=== PATIENT | male | born 1965 | race Caucasian/White ===

== ENCOUNTER 2016-12-09 10:01 | Emergency (ER) | payer OTHER ==
[~2016-12-09] VITALS: Ht 185.4 cm; Wt 102.1 kg
[~2016-12-09 10:01] MED LIST: AMLO10TA2 PO; AMLO5TAB2 PO; ASPI81TA2 PO; ISOS30TA PO; LISI1TAB3 PO; PANT40TA3 PO
[2016-12-09 10:19] VITALS: BP 138/90
[2016-12-09] MEDS ORDERED: IBUPROFEN 600 MG TABLET. PO ONE (10:30)
[2016-12-09] MEDS ORDERED: CYCLOBENZAPRINE 10 MG TABLET. PO ONE (10:45)
--- NOTE | 2016-12-09 11:12 | ED.ADGEN ---
Past Medical History Past Medical History: Hypertension, Kidney Stone, [place], Pancreatitis Past Surgical History: Other Additional Past Surgical Histo: Stents for kidney stones,lithotripsy x9, PTCA Additional Information: 10/20 ppd Alcohol Use: Rarely Drug Use: Marijuana Adult General Chief Complaint Chief Complaint: BACK PAIN OR INJURY HPI HPI Patient is a 51 year old man, history of hypertension, renal calculi, pancreatitis, who presents emergency Department with complaint of back pain after mechanical fall. Patient states that he slipped on slick laminated stairs today, falling and sliding down 4 stairs on his back. Did not strike his head or neck, did catch his hand on the banister, and his right foot. Was ambulating without difficulty upon arrival to the ED, complaining of pain in his upper and lower back. Denies any blood in his urine, any dizziness or lightheadedness, any chest pain or shortness breath, any nausea or vomiting, any headache or blurry vision, no weakness emesis or tingling. Has not taken any medication or pain prior to coming to the ED. Review of Systems Review of Systems Constitutional: Denies fever or chills. [] Eyes: Denies change in visual acuity. [] HENT: Denies nasal congestion or sore throat. [] Respiratory: Denies cough or shortness of breath. [] Cardiovascular: Denies chest pain or edema. [] GI: Denies abdominal pain, nausea, vomiting, bloody stools or diarrhea. [] : Denies dysuria. [] Musculoskeletal: Denies back pain or joint pain. [] Integument: Denies rash. [] Neurologic: Denies headache, focal weakness or sensory changes. [] Endocrine: Denies polyuria or polydipsia. [] Lymphatic: Denies swollen glands. [] Psychiatric: Denies depression or anxiety. [] Current Medications Current Medications Current Medications Medications (Trade) Dose Ordered Sig/Christa Start Time Stop Time Status Last Admin Dose Admin Cyclobenzaprine HCl (Flexeril) 10 mg 1X ONCE 12/09/16 10:45 12/09/16 10:46 DC 12/09/16 11:02 10 MG Ibuprofen (Motrin) 600 mg 1X ONCE 12/09/16 10:30 12/09/16 10:58 DC 12/09/16 11:02 600 MG Allergies Allergies Allergies Coded Allergies Type Severity Reaction Last Updated Verified codeine Allergy Intermediate hives 01/07/15 No ketorolac Allergy Intermediate swelling 12/09/16 No Physical Exam Physical Exam Constitutional: Well developed, well nourished, no acute distress, non-toxic appearance. [] HENT: Normocephalic, atraumatic, bilateral external ears normal, oropharynx moist, no oral exudates, nose normal. [] Eyes: PERRLA, EOMI, conjunctiva normal, no discharge. [] Neck: Normal range of motion, no tenderness, supple, no stridor. [] Cardiovascular:Heart rate regular rhythm, no murmur , S1, S2, rubs or gallops. [ ] Lungs & Thorax: Bilateral breath sounds clear to auscultation, no wheezing, rhonchi or rales. No chest tenderness or crepitus. [] Abdomen: Bowel sounds normal, soft, no tenderness, no masses, no pulsatile masses. [] Skin: Warm, dry, no erythema, no rash. [] Back: Patient with tenderness palpation in the mid thoracic region, paraspinal and midline, no step-offs or deformities appreciated. Patient to palpation in the lower lumbar region, no symptoms or deformities, pain in both paraspinal and midline region, noted have mild muscle spasm, no CVA tenderness. [] Extremities: Patient with a small abrasion noted on the medial aspect of the right fourth digit the lateral aspect of the nail, there is no hematoma, no bony point tenderness, full range of motion, patient with a small area abrasion on the fourth digit of the, no cyanosis, no clubbing right foot, no bony point tenderness or crepitus, patient with full range of motion, ROM intact, no edema. [] Neurologic: Alert and oriented X 3, normal motor function, normal sensory function, no focal deficits noted. [] Psychologic: Affect normal, judgement normal, mood normal. [] Current Patient Data Vital Signs Vital Signs Date Time Temp Pulse Resp B/P Pulse Ox O2 Delivery O2 Flow Rate FiO2 12/09/16 10:19 97.5 84 16 99 Room Air 97.5 Lab Values Laboratory Tests Test 12/09/16 11:30 Urine Collection Type Unknown Urine Color Yellow Urine Clarity Cloudy Urine pH 6.5 Urine Specific [place] 1.020 Urine Protein Negativemg/dL (NEG-TRACE) Urine Glucose (UA) Negativemg/dL (NEG) Urine Ketones (Stick) Negativemg/dL (NEG) Urine Blood Small (NEG) Urine Nitrite Negative (NEG) Urine Bilirubin Negative (NEG) Urine Urobilinogen Dipstick 0.2mg/dL (0.2 mg/dL) Urine Leukocyte Esterase Moderate (NEG) Urine RBC 11-20/HPF (0-2) Urine WBC 5-10/HPF (0-4) Urine Bacteria 0/HPF (0-FEW) EKG EKG Not indicated. [] Radiology/Procedures Radiology/Procedures [] [facility] [address] [place] [address] IMAGING REPORT Signed PATIENT: ERIC MCCOY ACCOUNT: [id number] : 1965 LOCATION: ER AGE: 51 SEX: M EXAM [id number] STATUS: REG ER ORD. PHYSICIAN: RICKY BERNAL DO REASON: fall/pain PROCEDURE: LUMBAR SPINE 2-3V; THORACIC SPINE 3V Lumbar spine, 3 views, 12/09/2016: History: Fall, back pain There is a minimal lumbar scoliosis. The lumbar vertebral heights are well-maintained. The intervertebral disc spaces are well preserved. There are mild scattered marginal spurs. There are mild sclerotic changes involving the facet joints in the lower lumbar spine. Multiple intrarenal calculi are again noted on the right. IMPRESSION: 1. Mild degenerative change. 2. No acute bony abnormality is detected. Thoracic spine, 3 views, 12/09/2016: No fracture or dislocation is identified. The paraspinous soft tissues are unremarkable. IMPRESSION: No acute thoracic spine abnormality is detected. DICTATED and SIGNED BY: DAVID SAWYER MD DATE: 12/09/16 1137 CC: RICKY BERNAL DO; AUGIE CHACKO MD ~ Course & Med Decision Making Course & Med Decision Making Pertinent Labs and Imaging studies reviewed. (See chart for details) Patient with tenderness palpation throughout the lumbar and thoracic back, no step-offs or deformities, x-rays obtained secondary to history does not reveal any evidence of soft tissue or bony abnormalities. Patient noted to have trace blood in his urine, no gross hematuria. Patient states this is a constant state for him, due to his multiple renal calculi, which were again noted on x-ray imaging. Patient states he has had 10 lithotripsies performed previously. I did discuss additional evaluation of this issue at this time, patient states that he has no concerns, and is feeling better after receiving ibuprofen and cyclobenzaprine in the ED, is ready for discharge home. He is ambulating in the ED without issue. Did discuss follow-up with his primary care provider for additional evaluation, and concerning symptoms that prompt return to the ED. Patient voiced understanding and agreement, discharged home in stable condition with ibuprofen and cyclobenzaprine, to follow-up with his PCP, and to return to the ED for concerning symptoms as discussed.. Dragon Disclaimer Dragon Disclaimer This electronic medical record was generated, in whole or in part, using a voice recognition dictation system. Departure Impression: Primary Impression: Back pain Additional Impression: Contusion Disposition: HOME, SELF-CARE Condition: IMPROVED Scripts Ibuprofen 600 Mg [id number] Mg PO PRN Q6HRS PRN INFLAMMATION #14 TAB Prov:RICKY BERNAL DO 12/09/16 Cyclobenzaprine Hcl 10 Mg [id number] Mg PO TID PRN MUSCLE PAIN #14 TAB Prov:RICKY BERNAL DO 12/09/16 Problem Qualifiers Primary Impression: Back pain Back pain location: low back pain Chronicity: acute Back pain laterality: bilateral Sciatica presence: without sciatica Qualified Code: M54.5 - Low back pain Additional Impression: Contusion Encounter type: initial encounter Contusion area: lower back Qualified Code : S30.0XXA - Contusion of lower back and pelvis, initial encounter RICKY BERNAL DO Dec 09, 2016 11:12
--- NOTE | 2016-12-09 11:43 | RAD ---
Lumbar spine, 3 views, 12/09/2016: History: Fall, back pain There is a minimal lumbar scoliosis. The lumbar vertebral heights are well-maintained. The intervertebral disc spaces are well preserved. There are mild scattered marginal spurs. There are mild sclerotic changes involving the facet joints in the lower lumbar spine. Multiple intrarenal calculi are again noted on the right. IMPRESSION: 1. Mild degenerative change. 2. No acute bony abnormality is detected. Thoracic spine, 3 views, 12/09/2016: No fracture or dislocation is identified. The paraspinous soft tissues are unremarkable. IMPRESSION: No acute thoracic spine abnormality is detected.
[2016-12-09 12:02] LABS: BACTERIA,URINE 0 /HPF (0-FEW); BILIRUBIN,URINE NEGATIVE (NEG); GLUCOSE,URINE NEGATIVE (NEG); NITRITE,URINE NEGATIVE (NEG); PH,URINE 6.5; PROTEIN,URINE NEGATIVE (NEG-TRACE); UROBILINOGEN,URINE 0.2 mg/dL (0.2 mg/dL)
[2016-12-09] MEDS ORDERED: IBUP-1007 PO (12:35)
[2016-12-09] MEDS ORDERED: CYCL10TA2 PO (12:35)
== END 2016-12-09 12:46 | disposition home or self-care (01) ==
LOC: ER 10:01
DX: S30.0XXA Contusion of lower back and pelvis, initial encounter (principal); S90.414A Abrasion, right lesser toe(s), initial encounter; I10 Essential (primary) hypertension; N20.0 Calculus of kidney; F17.200 Nicotine dependence, unspecified, uncomplicated; F12.10 Cannabis abuse, uncomplicated; Z87.442 Personal history of urinary calculi; I25.2 Old myocardial infarction; Z98.61 Coronary angioplasty status; Z88.5 Allergy status to narcotic agent; Z88.6 Allergy status to analgesic agent; W10.8XXA Fall (on) (from) other stairs and steps, initial encounter; Y93.89 Activity, other specified; Y99.8 Other external cause status; Y92.89 Other specified places as the place of occurrence of the external cause
CPT/HCPCS: 72072; 72100; 81001; 87086; 99285-25

== ENCOUNTER 2017-03-02 20:21 | Emergency (ER) | payer SELFPAY ==
[~2017-03-02] VITALS: Ht 182.9 cm; Wt 102.1 kg
[~2017-03-02 20:21] MED LIST changes: +CYCL10TA2 PO; +IBUP-1007 PO
[2017-03-02] MEDS ORDERED: NITROGLYCERIN SUBLINGUAL 0.4 MG BOTTLE OF 25. SL PRN (20:30)
[2017-03-02 20:55] LABS: BASO # 0.1 x10^3/uL (0.0-0.2); BASO % 1 % (0-3); EOS % 2 % (0-3); HEMATOCRIT 48.5 % (39.0-53.0); HEMOGLOBIN 16.6 g/dL (13.0-17.5); LYMPH # 1.5 x10^3/uL (1.0-4.8); LYMPH % 14 % (24-48); MEAN CORPUSCULAR HEMOGLOBIN 29 pg (25-35); MEAN CORPUSCULAR HGB CONC 34 g/dL (31-37); MEAN CORPUSCULAR VOLUME 85 fL (79-100); MONO % 6 % (0-9); NEUT % 77 % (31-73); PLATELET COUNT 179 x10^3/uL (140-400); RED CELL DISTRIBUTION WIDTH 14.6 % (11.5-14.5); WHITE BLOOD COUNT 10.9 x10^3/uL (4.0-11.0)
[2017-03-02 21:09] LABS: CALCIUM 9.1 mg/dL (8.5-10.1); CREATININE 1.4 mg/dL (0.7-1.3); GFR 53.2; POTASSIUM 3.7 mmol/L (3.5-5.1)
[2017-03-02 21:16] LABS: ALBUMIN 3.3 g/dL (3.4-5.0); ALBUMIN/GLOBULIN RATIO 0.9 (1.0-1.7); TOTAL BILIRUBIN 0.5 mg/dL (0.2-1.0)
[2017-03-02] MEDS ORDERED: fentaNYL PF VIAL 100 MCG/2 ML VIAL IV ONE (21:30)
[2017-03-02] MEDS ORDERED: ONDANSETRON PF 4 MG/2 ML VIAL. IV ONE (21:30)
[2017-03-02 21:31] LABS: CKMB MASS 1.7 ng/mL (0.0-3.6)
--- NOTE | 2017-03-02 22:06 | ED.ADGEN ---
Past Medical History Past Medical History: Hypertension, Kidney Stone, [place], Pancreatitis Additional Past Medical Histor: "mi 2015" Past Surgical History: Other Additional Past Surgical Histo: Stents for kidney stones, lithotripsy x9, PTCA Alcohol Use: Occasionally Drug Use: Marijuana Adult General Chief Complaint Chief Complaint: CHEST PAIN HPI HPI Patient is a 51 year old with history of dyslipidemia and hypertension, Prinzmetal angina presents with exertional chest pain while mowing lawn earlier this afternoon. Patient rates pain [id number] is located over the left pectoral region. It is nonradiating. It is worse with deep breathing and palpation. Patient is not taking aspirin or nitroglycerin prior to ED arrival. Denies nausea sweats vomiting, palpitations. No leg pain or swelling. No history of DVT or PE. No other acute symptoms or complaints. Review of Systems Review of Systems ROS as per HPI. Current Medications Current Medications Current Medications Medications (Trade) Dose Ordered Sig/Christa Start Time Stop Time Status Last Admin Dose Admin Fentanyl Citrate (Fentanyl 2ml Vial) 50 mcg 1X ONCE 03/02/17 21:30 03/02/17 21:31 DC 03/02/17 21:25 50 MCG Nitroglycerin (Nitrostat) 0.4 mg PRN Q5MIN PRN 03/02/17 20:30 03/03/17 01:21 DC 03/02/17 20:45 0.4 MG Ondansetron HCl (Zofran) 4 mg 1X ONCE 03/02/17 21:30 03/02/17 21:31 DC 03/02/17 21:25 4 MG Oxycodone/ Acetaminophen (Percocet 5/325) 1 tab 1X ONCE 03/02/17 23:00 03/02/17 23:01 DC 03/02/17 23:08 1 TAB Allergies Allergies Allergies Coded Allergies Type Severity Reaction Last Updated Verified codeine Allergy Intermediate hives 01/07/15 No ketorolac Allergy Intermediate swelling 12/09/16 No Physical Exam Physical Exam Constitutional: Well developed, well nourished, no acute distress, non-toxic appearance. HENT: Normocephalic, atraumatic, bilateral external ears normal, oropharynx moist, no oral exudates, nose normal. Eyes: PERRLA, EOMI, conjunctiva normal, no discharge. Neck: Normal range of motion, no tenderness, supple, no stridor. Cardiovascular:Heart rate regular rhythm, no murmur. Lungs & Thorax: Bilateral breath sounds clear to auscultation. Abdomen: Bowel sounds normal, soft, no tenderness. Skin: Warm, dry, no erythema, no rash. Back: No tenderness, no CVA tenderness. Extremities: No tenderness. Neurologic: Alert and oriented X 3, normal motor function, normal sensory function, no focal deficits noted. Psychologic: Affect normal, judgement normal, mood normal. Current Patient Data Vital Signs Vital Signs Date Time Temp Pulse Resp B/P (MAP) Pulse Ox O2 Delivery O2 Flow Rate FiO2 03/02/17 23:08 20 03/02/17 23:00 84 141/73 (95) 97 03/02/17 22:30 Room Air 03/02/17 20:25 98.1 98.1 Lab Values Laboratory Tests Test 03/02/17 20:45 03/02/17 20:52 White Blood Count 10.9 x10^3/uL (4.0-11.0) Red Blood Count 5.70 x10^6/uL (4.30-5.70) Hemoglobin 16.6 g/dL (13.0-17.5) Hematocrit 48.5 % (39.0-53.0) Mean Corpuscular Volume 85 fL (79-100) Mean Corpuscular Hemoglobin 29 pg (25-35) Mean Corpuscular Hemoglobin Concent 34 g/dL (31-37) Red Cell Distribution Width 14.6 % (11.5-14.5) H Platelet Count 179 x10^3/uL (140-400) Neutrophils (%) (Auto) 77 % (31-73) H Lymphocytes (%) (Auto) 14 % (24-48) L Monocytes (%) (Auto) 6 % (0-9) Eosinophils (%) (Auto) 2 % (0-3) Basophils (%) (Auto) 1 % (0-3) Neutrophils # (Auto) 8.4 x10^3uL (1.8-7.7) H Lymphocytes # (Auto) 1.5 x10^3/uL (1.0-4.8) Monocytes # (Auto) 0.7 x10^3/uL (0.0-1.1) Eosinophils # (Auto) 0.2 x10^3/uL (0.0-0.7) Basophils # (Auto) 0.1 x10^3/uL (0.0-0.2) Sodium Level 136 mmol/L (136-145) Potassium Level 3.7 mmol/L (3.5-5.1) Chloride Level 103 mmol/L (98-107) Carbon Dioxide Level 22 mmol/L (21-32) Anion Gap 11 (6-14) Blood Urea Nitrogen 19 mg/dL (8-26) Creatinine 1.4 mg/dL (0.7-1.3) H Estimated GFR (Cockcroft-Gault) 53.2 BUN/Creatinine Ratio 14 (6-20) Glucose Level 113 mg/dL (70-99) H Calcium Level 9.1 mg/dL (8.5-10.1) Total Bilirubin 0.5 mg/dL (0.2-1.0) Aspartate Amino Transferase (AST) 20 U/L (15-37) Alanine Aminotransferase (ALT) 31 U/L (16-63) Alkaline Phosphatase 100 U/L (46-116) Creatine Kinase 123 U/L (39-308) Creatine Kinase MB (Mass) 1.7 ng/mL (0.0-3.6) Creatine Kinase MB Relative Index 1.4 % (0-4) Total Protein 7.0 g/dL (6.4-8.2) Albumin 3.3 g/dL (3.4-5.0) L Albumin/Globulin Ratio 0.9 (1.0-1.7) L Lipase 124 U/L (73-393) POC Troponin I 0.00 ng/ml (<0.08) Laboratory Tests 03/02/17 20:45 Laboratory Tests 03/02/17 20:45 EKG EKG [EKG: NSR, rate 94, QTC 395.] Radiology/Procedures Radiology/Procedures [CXR: NAD] Course & Med Decision Making Course & Med Decision Making Pertinent Labs and Imaging studies reviewed. (See chart for details) [Atypical chest pain reproduces with palpation. Relief with nitroglycerin. Patient pain-free with fentanyl. EKG is nonacute. Troponin is 0.00 despite 2 hours of continuous chest pain.] Dragon Disclaimer Dragon Disclaimer This electronic medical record was generated, in whole or in part, using a voice recognition dictation system. CAITY MIN DO March 02, 2017 22:06
[2017-03-02 23:00] VITALS: BP 141/73
[2017-03-02] MEDS ORDERED: oxyCODONE/APAP 5/325 1 TAB TABLET PO ONE (23:00)
--- NOTE | 2017-03-03 08:10 | RAD ---
Portable chest, 03/02/2017: History: Chest pain Comparison is made to a study from 05/26/2016. The heart size and pulmonary vascularity are normal. The lungs are clear. There is no evidence of pleural fluid. IMPRESSION: No acute cardiopulmonary abnormality is detected.
--- NOTE | 2017-03-03 14:26 | EKG ---
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
== END 2017-03-02 23:31 | disposition home or self-care (01) ==
LOC: ER 20:21
DX: R07.89 Other chest pain (principal); R00.2 Palpitations; I10 Essential (primary) hypertension; I25.2 Old myocardial infarction; Z87.442 Personal history of urinary calculi; Z95.5 Presence of coronary angioplasty implant and graft; F12.10 Cannabis abuse, uncomplicated; Z88.5 Allergy status to narcotic agent; Z88.6 Allergy status to analgesic agent
CPT/HCPCS: 36415; 71010; 80053; 82550; 82553; 83690; 84484; 85027; 93005; 96374; 96375; 99285; J2405; J3010

== ENCOUNTER 2020-11-09 18:17 | Emergency (ER) | payer MEDICARE, MEDICAID ==
[~2020-11-09] VITALS: Ht 182.9 cm; Wt 122.7 kg
[~2020-11-09 18:17] MED LIST changes: +AMLO-186 PO; +AMLO-187 PO; -AMLO10TA2 PO; -AMLO5TAB2 PO; +ASPI-630 PO; -ASPI81TA2 PO; +LISI1TAB23 PO; -LISI1TAB3 PO; -PANT40TA3 PO; +PANT40TA77 PO
--- NOTE | 2020-11-09 19:25 | PHYS DOC ---
Past Medical History Past Medical History: Hypertension, Kidney Stone, [place], Pancreatitis Additional Past Medical Histor: "mi 2015" Past Surgical History: Other Additional Past Surgical Histo: Stents for kidney stones, lithotripsy x9, PTCA Smoking Status: Current Every Day Smoker Alcohol Use: Occasionally Drug Use: Marijuana Adult General Chief Complaint Chief Complaint: DIZZY/LIGHT HEADED HPI HPI Patient is a 55 year old male with a past medical history of hypertension and coronary artery disease presents emergency department with headache after head injury. Patient states that yesterday he was getting out of his car when he accidentally pulled were too hard and struck himself in the left forehead. States that since that time he has been feeling some left anterior headache and dizziness and nausea. Denies any chest pain, fever, syncope, vertigo, cough. Does state that he had a single episode of nausea bloody nonbilious vomiting. Denies any diarrhea. Denies any neck or back pain Review of Systems Review of Systems Constitutional: Denies fever or chills [] Eyes: Denies change in visual acuity, redness, or eye pain [] HENT: Denies nasal congestion or sore throat [] Respiratory: Denies cough or shortness of breath [] Cardiovascular: No additional information not addressed in HPI [] GI: Denies abdominal pain, nausea, vomiting, bloody stools or diarrhea [] : Denies dysuria or hematuria [] Musculoskeletal: Denies back pain or joint pain [] Integument: Denies rash or skin lesions [] Neurologic: Denies headache, focal weakness or sensory changes [] Endocrine: Denies polyuria or polydipsia [] All other systems were reviewed and found to be within normal limits, except as documented in this note. Current Medications Current Medications Current Medications Medications (Trade) Dose Ordered Sig/Christa Start Time Stop Time Status Last Admin Dose Admin Acetaminophen (Tylenol) 1,000 mg 1X ONCE 11/09/20 19:30 11/09/20 19:31 DC 11/09/20 19:31 1,000 MG Ibuprofen (Motrin) 800 mg 1X ONCE 11/09/20 19:30 11/09/20 19:31 DC 11/09/20 19:32 800 MG Allergies Allergies Allergies Coded Allergies Type Severity Reaction Last Updated Verified codeine Allergy Intermediate hives 01/07/15 No ketorolac Allergy Intermediate swelling 12/09/16 No Physical Exam Physical Exam Constitutional: Well developed, well nourished, no acute distress, non-toxic appearance. [] HENT: Normocephalic, atraumatic, bilateral external ears normal, oropharynx moist, no oral exudates, nose normal. [] Eyes: PERRLA, EOMI, conjunctiva normal, no discharge. [] Neck: Normal range of motion, no tenderness, supple, no stridor. [] Cardiovascular:Heart rate regular rhythm, no murmur [] Lungs & Thorax: Bilateral breath sounds clear to auscultation [] Abdomen: Bowel sounds normal, soft, no tenderness, no masses, no pulsatile masses. [] Skin: Warm, dry, no erythema, no rash. [] Back: No tenderness, no CVA tenderness. [] Extremities: No tenderness, no cyanosis, no clubbing, ROM intact, no edema. [] Neurologic: Alert and oriented X 3, normal motor function, normal sensory function, no focal deficits noted. [] Psychologic: Affect normal, judgement normal, mood normal. [] Current Patient Data Vital Signs Vital Signs Date Time Temp Pulse Resp B/P (MAP) Pulse Ox O2 Delivery O2 Flow Rate FiO2 11/09/20 19:16 98.7 76 17 144/79 (100) 96 Room Air 98.7 EKG EKG [] Radiology/Procedures Radiology/Procedures [] Course & Med Decision Making Course & Med Decision Making Pertinent Labs and Imaging studies reviewed. (See chart for details) 55-year-old male presented emergency department with mild headache and nausea after traumatic head injury. Based on the patient's findings there is some consideration for intracranial hemorrhage however I think this is less likely. Patient likely suffered a significant brain concussion and will need rest and physical therapy. We will obtain a CT head at this time and treat symptomatically and plan to reevaluate. 20:54 -CT scan without any significant intracranial abnormality or trauma injury. Thus I will discharge home with routine care for presumed concussion. Dragon Disclaimer Dragon Disclaimer This electronic medical record was generated, in whole or in part, using a voice recognition dictation system. Departure Departure Impression: Primary Impression: Concussion Disposition: 01 DC HOME SELF CARE/HOMELESS Condition: GOOD Referrals: AUGIE CHACKO MD (PCP) Patient Instructions: Concussion and Brain Injury Additional Instructions: EMERGENCY DEPARTMENT GENERAL DISCHARGE INSTRUCTIONS Thank you for coming to [facility] Emergency Department (ED) today and trusting us with you care. We trust that you had a positive experience in our Emergency Department. If you wish to speak to the department management, you may call the Director at [phone]. YOUR FOLLOW UP INSTRUCTIONS ARE FOLLOWS: 1. Do you have a private Doctor? If you do not have a private doctor, please ask for a resource list of physicians or clinics that may be able to assist you with follow up care. 2. The Emergency Physicain has interpreted your x-rays. The X-Ray specialist will also review them. If there is a change in the findings, you will be notified in 48 hours when at all possible. 3. A lab test or culture has been done, your results will be reviewed and you will be notified if you need a change in treatment. ADDITIONAL INSTRUCTIONS AND INFORMATION: 1. Your care today has been supervised by a physician who is specially trained in emergency care. Many problems require more than one evaluation for a complete diagnosis and treatment. We recommend that you schedule your follow up appointment as recommended to ensure complete treatment of you illness or injury. If you are unable to obtain follow up care and continue to have a problem, or if your condition worsens, we recommend that you return to the ED. 2. We are not able to safely determine your condition over the phone nor are we able to give sound medical advice over the phone. For these safety reasons, if you call for medical advice we will ask you to come to the ED for further evaluation. 3. If you have any questions regarding these discharge instructions please call the ED at [phone]. SAFETY INFORMATION: In the interest of safety, wellness, and injury prevention; we encourage you to wear your sealbelt, if you smoke; quite smoking, and we encourage family to use a protective helmet for bicycling and other sporting events that present an increased risk for head injury. IF YOUR SYMPTOMS WORSEN OR NEW SYMPTOMS DEVELOP, OR YOU HAVE CONCERNS ABOUT YOUR CONDITION; OR IF YOUR CONDITION WORSENS WHILE YOU ARE WAITING FOR YOUR FOLLOW UP APPOINTMENT; EITHER CONTACT YOUR PRIMARY CARE DOCTOR, THE PHYSICIAN WHOSE NAME AND NUMBER YOU WERE GIVEN, OR RETURN TO THE ED IMMEDIATELY. KESHAV GIL MD Nov 09, 2020 19:25
[2020-11-09] MEDS ORDERED: IBUPROFEN 400 MG TABLET. PO ONE (19:30)
[2020-11-09] MEDS ORDERED: ACETAMINOPHEN 500 MG TABLET PO ONE (19:30)
--- NOTE | 2020-11-09 20:27 | RAD ---
Exam: CT head INDICATION: Head injury TECHNIQUE: Sequential axial images through the head were obtained without the administration of IV co ntrast. Comparisons: None FINDINGS: No focal parenchymal lesion or hemorrhage is identified. There is no midline shift or sulcal effaceme nt. Patchy hypodensity in the periventricular white matter. No acute vascular territory infarction is francisco ntified. Ervin-white distinction is preserved. The ventricular system is within normal limits without compression hydrocephalus. The basal cisterns are well maintained. The visualized portions of the paranasal sinuses and mastoid air cells are well-pneumatized. No acute fractures. IMPRESSION: Mild small vessel ischemic change, technically age indeterminate without recent prior imaging. No acu te traumatic injury identified. Exposure: One or more of the following in the visualized dose reduction techniques were utilized for this examination: 1. Automated exposure control 2. Adjustment of the MA and/or KV according to patient size Use of iterative of reconstructive technique Electronically signed by: Kelly Kennedy MD (11/09/2020 8:25 PM) [facility]
[2020-11-09 22:09] VITALS: BP 143/73
[2021-01-10] MEDS ORDERED: ISOS30TA19 PO (10:41)
== END 2020-11-09 22:13 | disposition home or self-care (01) ==
LOC: ER 18:17
DX: S06.0X0A Concussion without loss of consciousness, initial encounter (principal); R42 Dizziness and giddiness; R11.0 Nausea; I10 Essential (primary) hypertension; F17.200 Nicotine dependence, unspecified, uncomplicated; I25.2 Old myocardial infarction; I25.10 Atherosclerotic heart disease of native coronary artery without angina pectoris; Z87.442 Personal history of urinary calculi; Z95.5 Presence of coronary angioplasty implant and graft; Z88.5 Allergy status to narcotic agent; Z88.6 Allergy status to analgesic agent; W22.8XXA Striking against or struck by other objects, initial encounter; Y93.89 Activity, other specified; Y92.89 Other specified places as the place of occurrence of the external cause; Y99.8 Other external cause status
CPT/HCPCS: 70450; 99285-25

== ENCOUNTER 2021-01-02 20:59 | Inpatient (IN) | payer MEDICARE, MEDICAID ==
[~2021-01-02] VITALS: Ht 182.9 cm; Wt 125.5 kg
--- NOTE | 2021-01-02 21:18 | PHYS DOC ---
Past Medical History Past Medical History: Diabetes-Type II, Hypertension, Kidney Stone, NV, P ancreatitis Additional Past Medical Histor: "mi 2015" Past Surgical History: Other Additional Past Surgical Histo: Stents for kidney stones, lithotripsy x9, PTCA Smoking Status: Current Every Day Smoker Alcohol Use: Occasionally Drug Use: Marijuana General Adult EDM: Chief Complaint: CHEST PAIN HPI: HPI: Patient is a 55 year old male with past medical history of diabetes type 2, hypertension, pancreatitis, and myocardial infarction presents for chest pain and shortness of breath. Patient reports that he started having trouble breathing at 11 AM this morning. He later developed left-sided chest pain the radiates to the arm. Patient reports that the pain comes and go and at its worst is 9 out of 10 in severity. He had a similar type of pain last time he had vasospasms. Patient's pain can be relieved by nitroglycerin at home. Patient reports that he has shortness of breath and chest pain at rest, and exertion were exacerbates the pain. Patient denies any fever and chills, cough, swelling in the lower extremity, abdominal pain, change in bowel movement or urination. Patient is the main historian. Review of Systems: Review of Systems: Review of systems: Constitutional symptoms- No fever, no chills. Eyes- No Discharge, No Visual Loss Respiratory symptoms-reports shortness of breath at rest, worse with exertion Cardiovascular Systems; reports sharp left-sided chest pain radiating to the left arm Gastrointestinal symptoms: NO abdominal pain, no nausea, no vomiting or diarrhea. Genitourinary symptoms: No dysuria. Musculoskeletal symptoms: No back pain No extremity pain. NEUROLOGICAL Symptoms: No headache, no generalized weakness; No focal Weakness Heart Score: C/O Chest Pain: Yes HEART Score for Chest Pain: HEART Score for Chest Pain Response (Comments) Value History Highly Suspicious 2 ECG Nonspecific Repolarizatio 1 Age >45 - < 65 1 Risk Factors >3 Risk Factors or Hx CAD 2 Troponin < Normal Limit 0 Total 6 Risk Factors: Risk Factors: DM, Current or recent (<one month) smoker, HTN, HLP, family history of CAD, obesity. Risk Scores: Score 0 - 3: 2.5% MACE over next 6 weeks - Discharge Home Score 4 - 6: 20.3% MACE over next 6 weeks - Admit for Clinical Observation Score 7 - 10: 72.7% MACE over next 6 weeks - Early Invasive Strategies Allergies: Allergies: Allergies Coded Allergies Type Severity Reaction Last Updated Verified codeine Allergy Intermediate hives 01/07/15 No ketorolac Allergy Intermediate swelling 12/09/16 No Physical Exam: PE: General: Patient in moderate distress. Skin: warm, dry and intact. Head:: Normocephalic, atraumatic. Neck: Trachea midline. Eyes: EOMI, Normal conjunctiva, No drainage CARDIOVASCULAR: Regular rate and rhythm RESPIRATORY: No respiratory distress Back: Full range of motion. MUSCULOSKELETAL: Full range of motion of bilateral upper and lower extremities. GASTROINTESTINAL: Abdomen soft without rebound or guarding. NEUROLOGICAL: Alert and noted to person, place and time. No neurological deficits observed Psychiatric: Cooperative. Normal judgment EKG: EKG: EKG performed at 2104 sinus rhythm rate of [address] elevation no ST depression no acute NV [] Radiology/Procedures: Radiology/Procedures: [] Impression: FINDINGS: The heart is not enlarged. Mediastinal and hilar contours are normal. Patchy opacities medial right lung base likely atelectasis or developing consolidation, new compared to 03/02/2017. No pleural effusion or pneumothorax. IMPRESSION:Patchy opacities medial right lung base likely atelectasis or developing consolidation, new compared to 03/02/2017. Electronically signed by: Christiano Nielsen MD (01/02/2021 10:56 PM) [facility] Course & Med Decision Making: Course & Med Decision Making Pertinent Labs and Imaging studies reviewed. (See chart for details) [] Patient was evaluated for chief complaint. Work-up consisted of laboratory analysis and radiologic imaging. Results reviewed and discussed with patient. Patient EKG without acute ischemic changes. Troponin negative. Treatment included aspirin morphine nitroglycerin. Patient's pain improved post treatment. Chest x-ray radiologist impression atelectasis versus infiltrate. Patient was started on Rocephin and Zithromax. Patient admitted to the hospita list with cardiology consult. Dragon Disclaimer: Dragon Disclaimer: This electronic medical record was generated, in whole or in part, using a voice recognition dictation system. Departure Departure Impression: Primary Impression: Chest pain Disposition: ADMITTED INPT THIS HOSP Admitting Physician: HIMMane Condition: STABLE Referrals: AUGIE CHACKO MD (PCP) YESSENIA CONNOR DO Jan 02, 2021 21:18
[2021-01-02 21:37] LABS: BASO # 0.1 x10^3/uL (0.0-0.2); BASO % 1 % (0-3); EOS # 0.2 x10^3/uL (0.0-0.7); EOS % 2 % (0-3); HEMATOCRIT 47.8 % (39.0-53.0); LYMPH # 2.3 x10^3/uL (1.0-4.8); LYMPH % 29 % (24-48); MEAN CORPUSCULAR HEMOGLOBIN 31 pg (25-35); MEAN CORPUSCULAR HGB CONC 34 g/dL (31-37); MEAN CORPUSCULAR VOLUME 92 fL (79-100); MONO # 0.7 x10^3/uL (0.0-1.1); MONO % 9 % (0-9); NEUT # 4.8 x10^3/uL (1.8-7.7); NEUT % 60 % (31-73); PLATELET COUNT 112 x10^3/uL (140-400); RED BLOOD COUNT 5.22 x10^6/uL (4.30-5.70); RED CELL DISTRIBUTION WIDTH 15.1 % (11.5-14.5)
[2021-01-02] MEDS ORDERED: NITROGLYCERIN OINT 1 GM PACKET. TP ONE (21:45)
[2021-01-02] MEDS ORDERED: MORPHINE SULFATE 4 MG/ML VIAL. IV ONE ×2 (21:45→22:45)
[2021-01-02] MEDS ORDERED: ASPIRIN CHEWABLE 81 MG TABLET. PO ONE (21:45)
[2021-01-02 21:51] LABS: CALCIUM 8.9 mg/dL (8.5-10.1); CREATININE 1.2 mg/dL (0.7-1.3); GFR 62.6; POTASSIUM 4.1 mmol/L (3.5-5.1)
[2021-01-02 21:56] LABS: ALBUMIN 3.3 g/dL (3.4-5.0); TOTAL BILIRUBIN 0.6 mg/dL (0.2-1.0); TOTAL PROTEIN 6.6 g/dL (6.4-8.2)
--- NOTE | 2021-01-02 22:16 | EKG ---
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
--- NOTE | 2021-01-02 22:59 | RAD ---
EXAM: AP View of the chest DATE: 01/02/2021 9:54 PM INDICATION: Reason: CHEST PAIN / Spl. Instructions: / History: COMPARISON: 03/02/2017 FINDINGS: The heart is not enlarged. Mediastinal and hilar contours are normal. Patchy opacities medial right lung base likely atelectasis or developing consolidation, new compared to 03/02/2017. No pleural effusion or pneumothorax. IMPRESSION:Patchy opacities medial right lung base likely atelectasis or developing consolidation, ne w compared to 03/02/2017. Electronically signed by: Christiano Nielsen MD (01/02/2021 10:56 PM) [facility]
[2021-01-02] MEDS ORDERED: cefTRIAXone IV Push 1 GM VIAL. IVP ONE (23:30)
[2021-01-02] MEDS ORDERED: ONDANSETRON PF 4 MG/2 ML VIAL. IV PRN (23:30)
[2021-01-02] MEDS ORDERED: AZITHRMYCN 500MG IVPB FOR OMNI 250 ML IV ONE (23:45)
[2021-01-03 02:08] VITALS: BP 140/88
[2021-01-03] MEDS: NICOTINE 14MG PATCH. TD SCH ×2 (02:16→09:00)
[2021-01-03] MEDS: MORPHINE SULFATE 2 MG/ML VIAL. IV PRN ×4 (02:18→20:13)
[2021-01-03] MEDS ORDERED: NITROGLYCERIN SUBLINGUAL 0.4 MG BOTTLE OF 25. SL PRN (02:45)
[2021-01-03 07:00] VITALS: BP 131/69
[2021-01-03] MEDS ORDERED: INSU100I53 SQ (08:42)
[2021-01-03] MEDS ORDERED: DIAZ2TAB3 PO (08:42)
[2021-01-03] MEDS ORDERED: PREG75CA67 PO (08:42)
[2021-01-03] MEDS ORDERED: INSU100I27 SQ (08:42)
[2021-01-03] MEDS ORDERED: CHOL4POW PO (08:42)
[2021-01-03] MEDS ORDERED: MIRT7.5T8 PO (08:42)
[2021-01-03] MEDS ORDERED: PANT40TA6 PO (08:42)
[2021-01-03] MEDS ORDERED: METO10TA PO (08:42)
[2021-01-03] MEDS ORDERED: DESV100T16 PO (08:42)
[2021-01-03] MEDS ORDERED: ROPI2TAB PO (08:43)
[2021-01-03] MEDS ORDERED: LEVO125T5 PO (08:44)
[2021-01-03] MEDS ORDERED: ACET325T9 PO (08:45)
[2021-01-03] MEDS ORDERED: CHOL4POW2 PO (08:51)
[2021-01-03 11:02] VITALS: BP 128/77
[2021-01-03] MEDS ORDERED: METOCLOPRAMIDE 10 MG TABLET. PO PRN (11:45)
--- NOTE | 2021-01-03 11:58 | HP ---
ADMIT DATE: 01/03/2021 CHIEF COMPLAINT: Chest pain. HISTORY OF PRESENT ILLNESS: The patient is a pleasant 55-year-old male who has chronic chest pain. In fact, he has been seen by a yeast supervisor, as I understood, he was scheduled to have a cardiac catheterization next week. He actually has been wearing an event monitor as well. His pain now has worsened to the point he decided to come on in to the ER last night. He rates his symptoms at 7/10, worse with moving, better with sitting still. He increased his home meds, but that is not working. It is described as mostly on the left side radiating to the arm. It is relieved with nitroglycerin. I discussed the case with ER physician. We admitted the patient with consultation to Cardiology. PAST MEDICAL HISTORY: Diabetes, hypertension, kidney stones, myocardial infarction (2016 according to the patient), pancreatitis, kidney stents, lithotripsy x 9, angioplasty, tobacco abuse. ALLERGIES: CODEINE, ____. FAMILY HISTORY: Diabetes and coronary artery disease. SOCIAL HISTORY: He smokes. No drink or drugs. MEDICATIONS: Reviewed, please refer to the MRAD. REVIEW OF SYSTEMS: GENERAL: No history of weight change, weakness or fevers. SKIN: No bruising, hair changes or rashes. EYES: No blurred, double or loss of vision. NOSE AND THROAT: No history of nosebleeds, hoarseness or sore throat. HEART: No history of palpitations, chest pain or shortness of breath on exertion. LUNGS: Denies cough, hemoptysis, wheezing or shortness of breath. GASTROINTESTINAL: Denies changes in appetite, nausea, vomiting, diarrhea or constipation. GENITOURINARY: No history of frequency, urgency, hesitancy or nocturia. NEUROLOGIC: Denies history of numbness, tingling, tremor or weakness. PSYCHIATRIC: No history of panic, anxiety or depression. ENDOCRINE: No history of heat or cold intolerance, polyuria or polydipsia. EXTREMITIES: Denies muscle weakness, joint pain, pain on walking or stiffness. PHYSICAL EXAMINATION: VITALS: Within normal limits and are stable. GENERAL: No apparent distress. Alert and oriented. HEENT: Normal cephalic atraumatic, external auditory canals are patent. EYES: Extraocular muscles are intact, pupils are equally round and reactive to light and accommodation. MUSCULOSKELETAL: Well developed, well nourished, good range of motion. ENDOCRINE: No thyromegaly was palpated. LYMPHATICS: No cervical chain or axillary nodes were noted. HEMATOPOIETIC: No bruising. NECK: Supple, no JVD, no thyromegaly was noted. LUNGS: Clear to auscultation in all lung howard without rhonchi or wheezing. HEART: RRR, S1, S2 present. Peripheral pulses intact, no obvious murmurs were noted. ABDOMEN: Soft, nontender. Positive bowel sounds no organomegaly, normal bowel sounds. EXTREMITIES: Without any cyanosis, clubbing, or edema. Pedal pulses intact, Homans sign is negative. NEUROLOGIC: Normal speech, normal tone. A & O x3, moves all extremities, no obvious focal deficits. PSYCHIATRIC: Normal affect, normal mood. Stable. SKIN: No ulcerations or rashes, good skin turgor, no jaundice. VASCULAR: Good capillary refill, neurovascular bundle appears to be intact. LABORATORY DATA: Troponin is 0. Hematology is normal. ASSESSMENT AND PLAN: Chest pain, rule out coronary artery disease. The patient has been admitted. We are checking serial enzymes, serial EKGs, echocardiogram, consult Cardiology, cardiac monitoring, home meds, deep venous thrombosis prophylaxis. Full code. PROGNOSIS: Guarded. BRONWYN PECK DO DR: NINA/alejandra JOB#: [id number] / [id number]
--- NOTE | 2021-01-03 11:58 | NUR ---
SS following for discharge planning. SS reviewed pt chart and discussed with pt RN. Pt is from home and is currently requiring oxygen at two liters nasal canula. COVID19 negative. Pt on IV Rocephin. Cardiology consulted. SS will continue to follow for discharge planning.
[2021-01-03] MEDS ORDERED: ACETAMINOPHEN 500 MG TABLET PO PRN (12:00)
[2021-01-03] MEDS ORDERED: ACETAMINOPHEN 325 MG TABLET. PO PRN (12:00)
[2021-01-03] MEDS ORDERED: HEPARIN 25,000UTS/250ML PREMIX 250 ML IV PRN (14:15)
[2021-01-03] MEDS: PANTOPRAZOLE 40 MG TABLET.DR. PO SCH (14:38)
[2021-01-03] MEDS: INSULIN LISPRO 300 UNITS/3 ML VIAL. SQ SCH ×4 (14:59→21:00)
[2021-01-03 15:00] VITALS: BP 143/71
--- NOTE | 2021-01-03 15:21 | PDOC2 ---
CONSULT Date of Consult Date of Consult DATE: 01/03/21 TIME: 15:15 Reason for Consult Reason for Consult: Shortness of breath and chest pain Referring Physician Referring Physician: Dr. Block Identification/Chief Complaint Chief Complaint Shortness of breath Source Source: Chart review, Patient History of Present Illness Reason for Visit: The patient is a 55-year-old male who presented to the emergency room yesterday evening with increasing shortness of breath. Patient also reports some chest discomfort with it. His initial testing showed no acute ischemic changes on his EKG and his troponin has been negative x2. Chest x-ray shows a new patchy opacity in the right base. Patient was started on IV antibiotics. He reports a history of coronary disease hypertension and diabetes as well as pancreatitis. From a cardiac viewpoint he reports being worked up as an outpatient and was tentatively scheduled for a heart catheterization in 1 week. He is now comfortable in bed. Past Medical History Cardiovascular: CAD, HTN, CT Renal/: Other (Reported kidney stones.) Past Surgical History Past Surgical History: Other (Previous PTCA, previous stents to his kidneys.) Family History Family History: Heart Disease Social History 1 pack per day ALCOHOL: occassional Drugs: Marijuana Lives: with Family Domestic Violence: Neg Current Problem List Problem List Problems Medical Problems: (1) Chest pain Status: Acute Current Medications Current Medications Current Medications Aspirin (Aspirin Chewable) 324 mg 1X ONCE PO Last administered on 01/02/21at 21:54; Start 01/02/21 at 21:45; Stop 01/02/21 at 21:46; Status DC Nitroglycerin (Nitro-Bid Oint) 1 inch 1X ONCE TP Last administered on at 21:54; Start 01/02/21 at 21:45; Stop 01/02/21 at 21:46; Status DC Morphine Sulfate (Morphine Sulfate) 4 mg 1X ONCE IV Last administered on 01/02/21at 21:54; Start 01/02/21 at 21:45; Stop 01/02/21 at 21:46; Status DC Morphine Sulfate (Morphine Sulfate) 4 mg 1X ONCE IV Last administered on 01/02/21at 22:47; Start 01/02/21 at 22:45; Stop 01/02/21 at 22:46; Status DC Ceftriaxone Sodium (Rocephin) 1 gm 1X ONCE IVP Last administered on 01/03/21at 00:36; Start 01/02/21 at 23:30; Stop 01/02/21 at 23:32; Status DC Azithromycin 250 ml @ 250 mls/hr 1X ONCE IV Last administered on 01/03/21at 00:38; Start 01/02/21 at 23:45; Stop 01/03/21 at 00:44; Status DC Ondansetron HCl (Zofran) 4 mg PRN Q8HRS PRN IV NAUSEA/VOMITING; Start 01/02/21 at 23:30; Stop 01/03/21 at 23:29 Nicotine (Nicoderm Cq 14mg) 1 patch DAILY TD Last administered on 01/03/21at 02:16; Start 01/03/21 at 02:15 Morphine Sulfate (Morphine Sulfate) 2 mg PRN Q2HR PRN IV PAIN Last administered on 01/03/21at 14:59; Start 01/03/21 at 02:15 Nitroglycerin (Nitrostat) 0.4 mg PRN Q5MIN PRN SL CHEST PAIN; Start 01/03/21 at 02:45 Acetaminophen (Tylenol) 500 mg PRN Q6HRS PRN PO MILD PAIN / TEMP > 100.3'F; Start 01/03/21 at 12:00; Stop 01/03/21 at 11:46; Status DC Cholestyramine Resin (Questran Light) 4 gm BID PO ; Start 01/03/21 at 21:00 Diazepam (Valium) 2 mg BID PO ; Start 01/03/21 at 21:00 Levothyroxine Sodium (Synthroid) 125 mcg DAILY06 PO ; Start 01/04/21 at 06:00 Metoclopramide HCl (Reglan) 10 mg PRN BID PRN PO migraine; Start 01/03/21 at 11:45 Mirtazapine (Remeron) 7.5 mg QHS PO ; Start 01/03/21 at 21:00 Pantoprazole Sodium (Protonix) 40 mg DAILY PO Last administered on 01/03/21at 14:38; Start 01/03/21 at 12:00 Pregabalin (Lyrica) 75 mg BID PO ; Start 01/03/21 at 21:00 Non-Formulary Medication (Cholestyramine (With Sugar) (Cholestyramine Packet)) 1 packet BID PO ; Start 01/03/21 at 21:00; Status UNV Non-Formulary Medication (Desvenlafaxine Succinate (Desvenlafaxine Succinate ER)) 1 tab DAILY PO ; Start 01/04/21 at 09:00; Status UNV Insulin Human Lispro (HumaLOG) 28 units TIDWMEALS SQ Last administered on 01/03/21at 14:59; Start 01/03/21 at 12:00 Insulin Glargine (Lantus Syringe) 80 unit QHS SQ ; Start 01/03/21 at 21:00 Ropinirole HCl (Requip) 2 mg HS PO ; Start 01/03/21 at 21:00 Ceftriaxone Sodium (Rocephin) 1 gm Q24H IVP ; Start 01/03/21 at 21:00 Acetaminophen (Tylenol) 500 mg PRN Q6HRS PRN PO MILD PAIN / TEMP > 100.3'F; Start 01/03/21 at 12:00 Albuterol/ Ipratropium (Duoneb) 3 ml RTQID NEB ; Start 01/03/21 at 16:00 Heparin Sodium/ Dextrose 250 ml @ 0 mls/hr CONT PRN IV PER PROTOCOL; Start 01/03/21 at 14:15 Heparin Sodium (Porcine) (Heparin Sodium) 3,050 unit PRN Q6HRS PRN IV FOR UFH LEVEL LESS THAN 0.2; Start 01/03/21 at 14:15 Active Scripts Active Reported Cholestyramine Packet (Cholestyramine (With Sugar)) 4 Gm Powd.pack 1 Packet PO BID Tylenol (Acetaminophen) 325 Mg Tablet 500 Mg PO Q6HRS Levothyroxine Sodium 125 Mcg Tablet 125 Mcg PO DAILY06 Requip Xl (Ropinirole Hcl) 2 Mg Tab.er.24h 2 Mg PO HS Metoclopramide Hcl 10 Mg Tablet 10 Mg PO BID PRN Desvenlafaxine Succinate ER (Desvenlafaxine Succinate) 100 Mg Tab.er.24h 1 Tab PO DAILY Mirtazapine 7.5 Mg Tablet 1 Tab PO QHS Pregabalin 75 Mg Capsule 1 Cap PO BID Diazepam 2 Mg Tablet 1 Tab PO BID Cholestyramine Light Packet (Cholestyramine/Aspartame) 4 Gm Powd.pack 4 G PO BID Pantoprazole Sodium 40 Mg Tablet.dr 40 Mg PO DAILY Levemir Flextouch (Insulin Detemir) 100 Unit/1 Ml Insuln.pen 80 Units SQ QHS Insulin Aspart Flexpen (Insulin Aspart) 100 Unit/1 Ml Insuln.pen 28 Units SQ TIDAC Allergies Allergies: Coded Allergies: codeine (Verified Allergy, Intermediate, hives, 01/03/21) ketorolac (Verified Allergy, Intermediate, swelling, 01/03/21) tolerates ibuprofen ROS Respiratory: YES: Shortness of breath Cardiovascular: yes Chest Pain Physical Exam General: mild distress HEENT: Atraumatic Lungs: Other (Mildly decreased breath sounds in the bases) Heart: Regular rate Abdomen: Normal bowel sounds Vitals VITALS Vital Signs Date Time Temp Pulse Resp B/P (MAP) Pulse Ox O2 Delivery O2 Flow Rate FiO2 01/03/21 11:02 98.1 69 24 128/77 (94) 98 Nasal Cannula 2.0 98.1 Labs Labs Laboratory Tests Test 01/02/21 21:26 01/02/21 21:27 01/03/21 01:10 01/03/21 07:35 White Blood Count 8.0 x10^3/uL (4.0-11.0) Red Blood Count 5.22 x10^6/uL (4.30-5.70) Hemoglobin 16.0 g/dL (13.0-17.5) Hematocrit 47.8 % (39.0-53.0) Mean Corpuscular Volume 92 fL (79-100) Mean Corpuscular Hemoglobin 31 pg (25-35) Mean Corpuscular Hemoglobin Concent 34 g/dL (31-37) Red Cell Distribution Width 15.1 % (11.5-14.5) Platelet Count 112 x10^3/uL (140-400) Neutrophils (%) (Auto) 60 % (31-73) Lymphocytes (%) (Auto) 29 % (24-48) Monocytes (%) (Auto) 9 % (0-9) Eosinophils (%) (Auto) 2 % (0-3) Basophils (%) (Auto) 1 % (0-3) Neutrophils # (Auto) 4.8 x10^3/uL (1.8-7.7) Lymphocytes # (Auto) 2.3 x10^3/uL (1.0-4.8) Monocytes # (Auto) 0.7 x10^3/uL (0.0-1.1) Eosinophils # (Auto) 0.2 x10^3/uL (0.0-0.7) Basophils # (Auto) 0.1 x10^3/uL (0.0-0.2) Sodium Level 136 mmol/L (136-145) Potassium Level 4.1 mmol/L (3.5-5.1) Chloride Level 101 mmol/L (98-107) Carbon Dioxide Level 22 mmol/L (21-32) Anion Gap 13 (6-14) Blood Urea Nitrogen 13 mg/dL (8-26) Creatinine 1.2 mg/dL (0.7-1.3) Estimated GFR (Cockcroft-Gault) 62.6 BUN/Creatinine Ratio 11 (6-20) Glucose Level 263 mg/dL (70-99) Lactic Acid Level 1.9 mmol/L (0.4-2.0) Calcium Level 8.9 mg/dL (8.5-10.1) Total Bilirubin 0.6 mg/dL (0.2-1.0) Aspartate Amino Transf (AST/SGOT) 60 U/L (15-37) Alanine Aminotransferase (ALT/SGPT) 90 U/L (16-63) Alkaline Phosphatase 253 U/L (46-116) Troponin I Quantitative < 0.017 ng/mL (0.000-0.055) < 0.017 ng/mL (0.000-0.055) Total Protein 6.6 g/dL (6.4-8.2) Albumin 3.3 g/dL (3.4-5.0) Albumin/Globulin Ratio 1.0 (1.0-1.7) OL-Aze-F-Type Natriuretic Peptide 28 pg/mL (0-124) SARS-CoV-2 Antigen (Rapid) Negative (NEGATIVE) Test 01/03/21 07:52 01/03/21 12:00 01/03/21 12:03 01/03/21 14:16 Glucose (Fingerstick) 167 mg/dL (70-99) 173 mg/dL (70-99) 164 mg/dL (70-99) Troponin I Quantitative < 0.017 ng/mL (0.000-0.055) Laboratory Tests Test 01/02/21 21:26 01/02/21 21:27 01/03/21 01:10 01/03/21 07:35 White Blood Count 8.0 x10^3/uL (4.0-11.0) Red Blood Count 5.22 x10^6/uL (4.30-5.70) Hemoglobin 16.0 g/dL (13.0-17.5) Hematocrit 47.8 % (39.0-53.0) Mean Corpuscular Volume 92 fL (79-100) Mean Corpuscular Hemoglobin 31 pg (25-35) Mean Corpuscular Hemoglobin Concent 34 g/dL (31-37) Red Cell Distribution Width 15.1 % (11.5-14.5) Platelet Count 112 x10^3/uL (140-400) Neutrophils (%) (Auto) 60 % (31-73) Lymphocytes (%) (Auto) 29 % (24-48) Monocytes (%) (Auto) 9 % (0-9) Eosinophils (%) (Auto) 2 % (0-3) Basophils (%) (Auto) 1 % (0-3) Neutrophils # (Auto) 4.8 x10^3/uL (1.8-7.7) Lymphocytes # (Auto) 2.3 x10^3/uL (1.0-4.8) Monocytes # (Auto) 0.7 x10^3/uL (0.0-1.1) Eosinophils # (Auto) 0.2 x10^3/uL (0.0-0.7) Basophils # (Auto) 0.1 x10^3/uL (0.0-0.2) Sodium Level 136 mmol/L (136-145) Potassium Level 4.1 mmol/L (3.5-5.1) Chloride Level 101 mmol/L (98-107) Carbon Dioxide Level 22 mmol/L (21-32) Anion Gap 13 (6-14) Blood Urea Nitrogen 13 mg/dL (8-26) Creatinine 1.2 mg/dL (0.7-1.3) Estimated GFR (Cockcroft-Gault) 62.6 BUN/Creatinine Ratio 11 (6-20) Glucose Level 263 mg/dL (70-99) Lactic Acid Level 1.9 mmol/L (0.4-2.0) Calcium Level 8.9 mg/dL (8.5-10.1) Total Bilirubin 0.6 mg/dL (0.2-1.0) Aspartate Amino Transf (AST/SGOT) 60 U/L (15-37) Alanine Aminotransferase (ALT/SGPT) 90 U/L (16-63) Alkaline Phosphatase 253 U/L (46-116) Troponin I Quantitative < 0.017 ng/mL (0.000-0.055) < 0.017 ng/mL (0.000-0.055) Total Protein 6.6 g/dL (6.4-8.2) Albumin 3.3 g/dL (3.4-5.0) Albumin/Globulin Ratio 1.0 (1.0-1.7) BS-Zij-P-Type Natriuretic Peptide 28 pg/mL (0-124) SARS-CoV-2 Antigen (Rapid) Negative (NEGATIVE) Test 01/03/21 07:52 01/03/21 12:00 01/03/21 12:03 01/03/21 14:16 Glucose (Fingerstick) 167 mg/dL (70-99) 173 mg/dL (70-99) 164 mg/dL (70-99) Troponin I Quantitative < 0.017 ng/mL (0.000-0.055) Images Images Chest x-ray with new patchy opacities in the right base Assessment/Plan Assessment/Plan 1. Probable pneumonia. New changes in the chest x-ray as above. Patient reports she is chief complaint is being shortness of breath. He has been started on antibiotics. We will continue to monitor. 2. History of coronary artery disease. Patient had chest pain associated with the shortness of breath. He is now comfortable in bed. His EKG shows no acute ischemic changes. Troponins have been normal x2. We will continue baseline medications of started on heparin. Future catheterization based on clinical course. 3. Hypertension. Continue baseline medications and monitor. 4. Possible hyperlipidemia. Will check morning lab. 5. Diabetes mellitus. As per the primary service. Thank you for allowing us to participate in the care of your patient. DAYANA BORGES MD Jan 03, 2021 15:21
[2021-01-03] MEDS: IPRATRPIUM/ALBUTEROL 0.5/2.5MG 3 ML NEBU. NEB SCH ×2 (15:24→20:00)
[2021-01-03] MEDS ORDERED: DEXTROSE 50% 25 GM / 50ML DISP.SYRIN. IV PRN (18:00)
[2021-01-03 19:15] VITALS: BP 136/74
[2021-01-03] MEDS ORDERED: MIRTAZAPINE 7.5 MG TABLET. PO SCH (21:00)
[2021-01-03] MEDS ORDERED: CHOLESTYRAMINE PO SCH (21:00)
[2021-01-03] MEDS ORDERED: cefTRIAXone IV Push 1 GM VIAL. IVP SCH (21:00)
[2021-01-03] MEDS ORDERED: INSULIN GLARGINE SYRINGE. SQ SCH (21:00)
[2021-01-03] MEDS ORDERED: INSULIN LISPRO 300 UNITS/3 ML VIAL. SQ SCH (21:00)
[2021-01-03] MEDS ORDERED: [UNRECOGNIZED DRUG - OTHER] PO SCH (21:00)
[2021-01-03] MEDS ORDERED: rOPINIRole 1 MG TABLET. PO SCH (21:00)
[2021-01-03] MEDS: CHOLESTYRAMINE/ASPARTAME 4 GM PACKET PO SCH (21:17)
[2021-01-03] MEDS: PREGABALIN 75 MG CAPSULE PO SCH (21:17)
[2021-01-03] MEDS: diazePAM 2 MG TABLET PO SCH (21:17)
[2021-01-03] MEDS: HEPARIN for IV BOLUS 10,000 UNIT/10 ML VIAL. IV PRN (22:51)
[2021-01-03 23:20] VITALS: BP 129/67
[2021-01-04 03:50] VITALS: BP 148/74
[2021-01-04 05:50] LABS: HEMATOCRIT 45.2 % (39.0-53.0); HEMOGLOBIN 14.8 g/dL (13.0-17.5); RED BLOOD COUNT 4.9 x10^6/uL (4.30-5.70); RED CELL DISTRIBUTION WIDTH 15.1 % (11.5-14.5); WHITE BLOOD COUNT 7.3 x10^3/uL (4.0-11.0)
[2021-01-04] MEDS ORDERED: LEVOTHYROXINE 125 MCG TABLET PO SCH (06:00)
[2021-01-04] MEDS: HEPARIN for IV BOLUS 10,000 UNIT/10 ML VIAL. IV PRN (06:41)
[2021-01-04 07:00] VITALS: BP 115/45
[2021-01-04] MEDS: IPRATRPIUM/ALBUTEROL 0.5/2.5MG 3 ML NEBU. NEB SCH ×3 (07:39→15:42)
[2021-01-04] MEDS ORDERED: DESVENLAFAXINE SUCCINATE PO SCH (09:00)
[2021-01-04] MEDS: diazePAM 2 MG TABLET PO SCH (09:46)
[2021-01-04] MEDS: PREGABALIN 75 MG CAPSULE PO SCH (09:46)
[2021-01-04] MEDS: PANTOPRAZOLE 40 MG TABLET.DR. PO SCH (09:46)
[2021-01-04] MEDS: NICOTINE 14MG PATCH. TD SCH (09:47)
[2021-01-04] MEDS: CHOLESTYRAMINE/ASPARTAME 4 GM PACKET PO SCH (10:45)
[2021-01-04 11:00] VITALS: BP 126/81
[2021-01-04] MEDS: INSULIN LISPRO 300 UNITS/3 ML VIAL. SQ SCH ×4 (11:17→12:34)
[2021-01-04 15:00] VITALS: BP 112/53
--- NOTE | 2021-01-04 15:20 | PDOC ---
PROGRESS NOTES Date of Service DATE: 01/04/21 TIME: 15:18 Subjective Subjective Patient seen and examined Objective Objective Vital Signs Date Time Temp Pulse Resp B/P (MAP) Pulse Ox O2 Delivery O2 Flow Rate FiO2 01/04/21 11:12 Room Air 01/04/21 11:00 98.7 78 18 126/81 (96) 96 98.7 01/03/21 23:20 2.0 Intake and Output 01/04/21 07:00 Intake Total 1582 ml Output Total 2975 ml Balance -1393 ml Intake Oral 1400 ml IV Total 182 ml Output Urine Total 2975 ml # Voids 3 Physical Exam Abdomen: Normal bowel sounds Heart: Regular rate General: No acute distress Lungs: Other (Slightly decreased breath sounds) Assessment Assessment Problems Medical Problems: (1) Chest pain Status: Acute 1. Probable pneumonia. New changes in the chest x-ray as above. Patient reports she is chief complaint is being shortness of breath. He has been started on antibiotics. He is feeling better today. 2. History of coronary artery disease. Patient had chest pain associated with the shortness of breath. He is now comfortable in bed. His EKG shows no acute ischemic changes. Troponins have been normal x3. Treated with baseline medi cines and heparin overnight. He is pain-free today and feels well. We will discontinue heparin. Patient is scheduled for a outpatient catheterization on Wednesday. If stable in regards to his pneumonia he may be discharge from a cardiac viewpoint and we will follow up. 3. Hypertension. Continue baseline medications and monitor. 4. Possible hyperlipidemia. Continue present medications at this time. 5. Diabetes mellitus. As per the primary service. Comment Review of Relevant I have reviewed the following items jabari (where applicable) has been applied. Labs Laboratory Tests Test 01/02/21 21:26 01/02/21 21:27 01/03/21 01:10 01/03/21 07:35 White Blood Count 8.0 x10^3/uL (4.0-11.0) Red Blood Count 5.22 x10^6/uL (4.30-5.70) Hemoglobin 16.0 g/dL (13.0-17.5) Hematocrit 47.8 % (39.0-53.0) Mean Corpuscular Volume 92 fL (79-100) Mean Corpuscular Hemoglobin 31 pg (25-35) Mean Corpuscular Hemoglobin Concent 34 g/dL (31-37) Red Cell Distribution Width 15.1 % (11.5-14.5) Platelet Count 112 x10^3/uL (140-400) Neutrophils (%) (Auto) 60 % (31-73) Lymphocytes (%) (Auto) 29 % (24-48) Monocytes (%) (Auto) 9 % (0-9) Eosinophils (%) (Auto) 2 % (0-3) Basophils (%) (Auto) 1 % (0-3) Neutrophils # (Auto) 4.8 x10^3/uL (1.8-7.7) Lymphocytes # (Auto) 2.3 x10^3/uL (1.0-4.8) Monocytes # (Auto) 0.7 x10^3/uL (0.0-1.1) Eosinophils # (Auto) 0.2 x10^3/uL (0.0-0.7) Basophils # (Auto) 0.1 x10^3/uL (0.0-0.2) Sodium Level 136 mmol/L (136-145) Potassium Level 4.1 mmol/L (3.5-5.1) Chloride Level 101 mmol/L (98-107) Carbon Dioxide Level 22 mmol/L (21-32) Anion Gap 13 (6-14) Blood Urea Nitrogen 13 mg/dL (8-26) Creatinine 1.2 mg/dL (0.7-1.3) Estimated GFR (Cockcroft-Gault) 62.6 BUN/Creatinine Ratio 11 (6-20) Glucose Level 263 mg/dL (70-99) Lactic Acid Level 1.9 mmol/L (0.4-2.0) Calcium Level 8.9 mg/dL (8.5-10.1) Total Bilirubin 0.6 mg/dL (0.2-1.0) Aspartate Amino Transf (AST/SGOT) 60 U/L (15-37) Alanine Aminotransferase (ALT/SGPT) 90 U/L (16-63) Alkaline Phosphatase 253 U/L (46-116) Troponin I Quantitative < 0.017 ng/mL (0.000-0.055) < 0.017 ng/mL (0.000-0.055) Total Protein 6.6 g/dL (6.4-8.2) Albumin 3.3 g/dL (3.4-5.0) Albumin/Globulin Ratio 1.0 (1.0-1.7) LR-Jer-R-Type Natriuretic Peptide 28 pg/mL (0-124) Coronavirus (PCR) Not detected (Not Detected) SARS-CoV-2 Antigen (Rapid) Negative (NEGATIVE) Test 01/03/21 07:52 01/03/21 12:00 01/03/21 12:03 01/03/21 14:16 Glucose (Fingerstick) 167 mg/dL (70-99) 173 mg/dL (70-99) 164 mg/dL (70-99) Troponin I Quantitative < 0.017 ng/mL (0.000-0.055) Test 01/03/21 17:46 01/03/21 20:48 01/03/21 22:15 01/04/21 04:30 Glucose (Fingerstick) 292 mg/dL (70-99) 249 mg/dL (70-99) Heparin Anti-Xa Act, Unfractionated < 0.10 IU/mL (0.30-0.70) White Blood Count 7.3 x10^3/uL (4.0-11.0) Red Blood Count 4.90 x10^6/uL (4.30-5.70) Hemoglobin 14.8 g/dL (13.0-17.5) Hematocrit 45.2 % (39.0-53.0) Mean Corpuscular Volume 92 fL (79-100) Mean Corpuscular Hemoglobin 30 pg (25-35) Mean Corpuscular Hemoglobin Concent 33 g/dL (31-37) Red Cell Distribution Width 15.1 % (11.5-14.5) Platelet Count 104 x10^3/uL (140-400) Test 01/04/21 05:00 01/04/21 07:42 01/04/21 11:10 01/04/21 12:01 Heparin Anti-Xa Act, Unfractionated 0.17 IU/mL (0.30-0.70) 0.69 IU/mL (0.30-0.70) Glucose (Fingerstick) 209 mg/dL (70-99) 312 mg/dL (70-99) Laboratory Tests Test 01/03/21 17:46 01/03/21 20:48 01/03/21 22:15 01/04/21 04:30 Glucose (Fingerstick) 292 mg/dL (70-99) 249 mg/dL (70-99) Heparin Anti-Xa Act, Unfractionated < 0.10 IU/mL (0.30-0.70) White Blood Count 7.3 x10^3/uL (4.0-11.0) Red Blood Count 4.90 x10^6/uL (4.30-5.70) Hemoglobin 14.8 g/dL (13.0-17.5) Hematocrit 45.2 % (39.0-53.0) Mean Corpuscular Volume 92 fL (79-100) Mean Corpuscular Hemoglobin 30 pg (25-35) Mean Corpuscular Hemoglobin Concent 33 g/dL (31-37) Red Cell Distribution Width 15.1 % (11.5-14.5) Platelet Count 104 x10^3/uL (140-400) Test 01/04/21 05:00 01/04/21 07:42 01/04/21 11:10 01/04/21 12:01 Heparin Anti-Xa Act, Unfractionated 0.17 IU/mL (0.30-0.70) 0.69 IU/mL (0.30-0.70) Glucose (Fingerstick) 209 mg/dL (70-99) 312 mg/dL (70-99) Medications Current Medications Aspirin (Aspirin Chewable) 324 mg 1X ONCE PO Last administered on 01/02/21 21:54; Start 01/02/21 at 21:45; Stop 01/02/21 at 21:46; Status DC Nitroglycerin (Nitro-Bid Oint) 1 inch 1X ONCE TP Last administered on 01/02/21at 21:54; Start 01/02/21 at 21:45; Stop 01/02/21 at 21:46; Status DC Morphine Sulfate (Morphine Sulfate) 4 mg 1X ONCE IV Last administered on 01/02/21at 21:54; Start 01/02/21 at 21:45; Stop 01/02/21 at 21:46; Status DC Morphine Sulfate (Morphine Sulfate) 4 mg 1X ONCE IV Last administered on 01/02/21at 22:47; Start 01/02/21 at 22:45; Stop 01/02/21 at 22:46; Status DC Ceftriaxone Sodium (Rocephin) 1 gm 1X ONCE IVP Last administered on 01/03/21at 00:36; Start 01/02/21 at 23:30; Stop 01/02/21 at 23:32; Status DC Azithromycin 250 ml @ 250 mls/hr 1X ONCE IV Last administered on 01/03/21at 00:38; Start 01/02/21 at 23:45; Stop 01/03/21 at 00:44; Status DC Ondansetron HCl (Zofran) 4 mg PRN Q8HRS PRN IV NAUSEA/VOMITING; Start 01/02/21 at 23:30; Stop 01/03/21 at 23:29; Status DC Nicotine (Nicoderm Cq 14mg) 1 patch DAILY TD Last administered on 01/04/21at 09:47; Start 01/03/21 at 02:15 Morphine Sulfate (Morphine Sulfate) 2 mg PRN Q2HR PRN IV PAIN Last administered on 01/03/21at 20:13; Start 01/03/21 at 02:15 Nitroglycerin (Nitrostat) 0.4 mg PRN Q5MIN PRN SL CHEST PAIN; Start 01/03/21 at 02:45 Acetaminophen (Tylenol) 500 mg PRN Q6HRS PRN PO MILD PAIN / TEMP > 100.3'F; Start 01/03/21 at 12:00; Stop 01/03/21 at 11:46; Status DC Cholestyramine Resin (Questran Light) 4 gm BID PO Last administered on 01/04/21at 10:45; Start 01/03/21 at 21:00 Diazepam (Valium) 2 mg BID PO Last administered on 01/04/21at 09:46; Start 01/03/21 at 21:00 Levothyroxine Sodium (Synthroid) 125 mcg DAILY06 PO Last administered on 01/04/21at 06:40; Start 01/04/21 at 06:00 Metoclopramide HCl (Reglan) 10 mg PRN BID PRN PO migraine; Start 01/03/21 at 11:45 Mirtazapine (Remeron) 7.5 mg QHS PO Last administered on 01/03/21at 21:17; Start 01/03/21 at 21:00 Pantoprazole Sodium (Protonix) 40 mg DAILY PO Last administered on 01/04/21at 09:46; Start 01/03/21 at 12:00 Pregabalin (Lyrica) 75 mg BID PO Last administered on 01/04/21at 09:46; Start 01/03/21 at 21:00 Non-Formulary Medication (Cholestyramine (With Sugar) (Cholestyramine Packet)) 1 packet BID PO ; Start 01/03/21 at 21:00; Status UNV Non-Formulary Medication (Desvenlafaxine Succinate (Desvenlafaxine Succinate ER)) 1 tab DAILY PO ; Start 01/04/21 at 09:00; Status UNV Insulin Human Lispro (HumaLOG) 28 units TIDWMEALS SQ Last administered on 01/04/21at 12:34; Start 01/03/21 at 12:00 Insulin Glargine (Lantus Syringe) 80 unit QHS SQ Last administered on 01/03/21at 21:52; Start 01/03/21 at 21:00 Ropinirole HCl (Requip) 2 mg HS PO Last administered on 01/03/21at 21:17; Start 01/03/21 at 21:00 Ceftriaxone Sodium (Rocephin) 1 gm Q24H IVP Last administered on 01/03/21at 21:18; Start 01/03/21 at 21:00 Acetaminophen (Tylenol) 500 mg PRN Q6HRS PRN PO MILD PAIN / TEMP > 100.3'F; Start 01/03/21 at 12:00 Albuterol/ Ipratropium (Duoneb) 3 ml RTQID NEB Last administered on 01/04/21at 11:10; Start 01/03/21 at 16:00 Heparin Sodium/ Dextrose 250 ml @ 0 mls/hr CONT PRN IV PER PROTOCOL Last administered on 01/04/21at 09:53; Start 01/03/21 at 14:15 Heparin Sodium (Porcine) (Heparin Sodium) 3,050 unit PRN Q6HRS PRN IV FOR UFH LEVEL LESS THAN 0.2 Last administered on 01/04/21at 06:41; Start 01/03/21 at 14:15 Insulin Human Lispro (HumaLOG) 0-9 UNITS QIDACHS SQ ; Start 01/03/21 at 21:00; Stop 3/19/21 at 18:36; Status DC Dextrose (Dextrose 50%-Water Syringe) 12.5 gm PRN Q15MIN PRN IV SEE COMMENTS; Start 01/03/21 at 18:00 Insulin Human Lispro (HumaLOG) 0-9 UNITS QIDACHS SQ Last administered on 01/04/21at 12:30; Start 01/03/21 at 18:45 Lactobacillus Rhamnosus (Culturelle) 1 cap BID PO ; Start 01/04/21 at 21:00 Active Scripts Active Reported Cholestyramine Packet (Cholestyramine (With Sugar)) 4 Gm Powd.pack 1 Packet PO BID Tylenol (Acetaminophen) 325 Mg Tablet 500 Mg PO Q6HRS Levothyroxine Sodium 125 Mcg Tablet 125 Mcg PO DAILY06 Requip Xl (Ropinirole Hcl) 2 Mg Tab.er.24h 2 Mg PO HS Metoclopramide Hcl 10 Mg Tablet 10 Mg PO BID PRN Desvenlafaxine Succinate ER (Desvenlafaxine Succinate) 100 Mg Tab.er.24h 1 Tab PO DAILY Mirtazapine 7.5 Mg Tablet 1 Tab PO QHS Pregabalin 75 Mg Capsule 1 Cap PO BID Diazepam 2 Mg Tablet 1 Tab PO BID Cholestyramine Light Packet (Cholestyramine/Aspartame) 4 Gm Powd.pack 4 G PO BID Pantoprazole Sodium 40 Mg Tablet.dr 40 Mg PO DAILY Levemir Flextouch (Insulin Detemir) 100 Unit/1 Ml Insuln.pen 80 Units SQ QHS Insulin Aspart Flexpen (Insulin Aspart) 100 Unit/1 Ml Insuln.pen 28 Units SQ TIDAC Vitals/I & O Vital Sign - Last 24 Hours 01/03/21 01/03/21 01/03/21 01/03/21 15:24 19:15 20:00 20:13 Temp 98.9 98.9 Pulse 96 Resp 20 B/P (MAP) 136/74 (94) Pulse Ox 97 95 95 O2 Delivery Nasal Cannula Nasal Cannula Nasal Cannula Nasal Cannula O2 Flow Rate 2.0 2.0 2.0 2.0 01/03/21 01/03/21 01/04/21 01/04/21 20:43 23:20 03:50 07:00 Temp 99.1 98.8 98.6 99.1 98.8 98.6 Pulse 85 87 79 Resp 20 18 18 B/P (MAP) 129/67 (87) 148/74 (98) 115/45 (68) Pulse Ox 95 96 95 91 O2 Delivery Nasal Cannula Nasal Cannula Room Air Room Air O2 Flow Rate 2.0 2.0 01/04/21 01/04/21 01/04/21 07:40 11:00 11:12 Temp 98.7 98.7 Pulse 78 Resp 18 B/P (MAP) 126/81 (96) Pulse Ox 93 96 O2 Delivery Room Air Room Air Room Air Intake and Output 01/03/21 01/03/21 01/04/21 15:00 23:00 07:00 Intake Total 750 ml 832 ml Output Total 1275 ml 600 ml 1100 ml Balance -1275 ml 150 ml -268 ml Justifications for Admission Other Justification DAYANA BORGES MD Jan 04, 2021 15:20
--- NOTE | 2021-01-04 16:16 | DISCH ---
DISCHARGE INSTRUCTIONS Condition on Discharge Condition on Discharge: Stable Activity After Discharge Activity Instructions for Disc: Resume previous activity, Activity as tolerated Weight Bearing Status after Di: As tolerated Diet after Discharge Diet after Discharge: Regular Contacting the DR. after DC Call your doctor for: If your condition worsens Treatment/Equipment after DC Adaptive Equipment Issued: None YIN ULRICH MD Jan 04, 2021 16:16
[2021-01-04] MEDS ORDERED: DOXY100T PO (16:18)
[2021-01-04] MEDS ORDERED: ASPI-630 PO (16:18)
--- NOTE | 2021-01-04 16:27 | PDOC ---
GENERAL General: Discharge summary [id number] VITAL SIGNS Vital Signs/I&O: Vital Signs Date Time Temp Pulse Resp B/P (MAP) Pulse Ox O2 Delivery O2 Flow Rate FiO2 01/04/21 15:43 Room Air 01/04/21 15:00 98.7 91 16 112/53 (72) 99 98.7 01/03/21 23:20 2.0 I & O 01/03/21 01/03/21 01/04/21 15:00 23:00 07:00 Intake Total 750 ml 832 ml Output Total 1275 ml 600 ml 1100 ml Balance -1275 ml 150 ml -268 ml ALLERGIES Allergies: Allergies Coded Allergies Type Severity Reaction Last Updated Verified codeine Allergy Intermediate hives 01/03/21 Yes ketorolac Allergy Intermediate swelling 01/03/21 Yes MEDS Medications: Current Medications Medications (Trade) Dose Ordered Sig/Christa Route PRN Reason Start Time Stop Time Status Last Admin Dose Admin Cholestyramine Resin (Questran Light) 4 gm BID PO 01/03/21 21:00 01/04/21 10:45 Diazepam (Valium) 2 mg BID PO 01/03/21 21:00 01/04/21 09:46 Levothyroxine Sodium (Synthroid) 125 mcg DAILY06 PO 01/04/21 06:00 01/04/21 06:40 Mirtazapine (Remeron) 7.5 mg QHS PO 01/03/21 21:00 01/03/21 21:17 Pregabalin (Lyrica) 75 mg BID PO 01/03/21 21:00 01/04/21 09:46 Insulin Glargine (Lantus Syringe) 80 unit QHS SQ 01/03/21 21:00 01/03/21 21:52 Ropinirole HCl (Requip) 2 mg HS PO 01/03/21 21:00 01/03/21 21:17 Ceftriaxone Sodium (Rocephin) 1 gm Q24H IVP 01/03/21 21:00 01/03/21 21:18 Insulin Human Lispro (HumaLOG) 0-9 UNITS QIDACHS SQ 01/03/21 18:45 01/04/21 12:30 LAB Lab: Laboratory Tests Test 01/03/21 17:46 01/03/21 20:48 01/03/21 22:15 01/04/21 04:30 Glucose (Fingerstick) 292 mg/dL (70-99) H 249 mg/dL (70-99) H Heparin Anti-Xa Act, Unfractionated < 0.10 IU/mL (0.30-0.70) L White Blood Count 7.3 x10^3/uL (4.0-11.0) Red Blood Count 4.90 x10^6/uL (4.30-5.70) Hemoglobin 14.8 g/dL (13.0-17.5) Hematocrit 45.2 % (39.0-53.0) Mean Corpuscular Volume 92 fL (79-100) Mean Corpuscular Hemoglobin 30 pg (25-35) Mean Corpuscular Hemoglobin Concent 33 g/dL (31-37) Red Cell Distribution Width 15.1 % (11.5-14.5) H Platelet Count 104 x10^3/uL (140-400) L Test 01/04/21 05:00 01/04/21 07:42 01/04/21 11:10 01/04/21 12:01 Heparin Anti-Xa Act, Unfractionated 0.17 IU/mL (0.30-0.70) L 0.69 IU/mL (0.30-0.70) Glucose (Fingerstick) 209 mg/dL (70-99) H 312 mg/dL (70-99) H Laboratory Tests 01/04/21 04:30 Justifications for Admission Other Justification YIN ULRICH MD Jan 04, 2021 16:27
--- NOTE | 2021-01-04 17:50 | DS ---
DATE OF DISCHARGE: HISTORY AND HOSPITAL COURSE: This patient is a 55-year-old man who is a continuity outpatient of Dr. Jensen and Dr. Campbell. They use the [facility] here at [facility]. I am rounding for them this weekend. The patient has had an outpatient workup for unstable angina and plan is for cardiac catheterization electively on Wednesday of this next week. He presented to the Emergency Department with increasing shortness of breath and central chest pain 2 days ago and has had an unremarkable clinical stay. We appreciate cardiology input. The patient's troponins and EKGs have been stable and unremarkable for acute abnormality. He was noted to have elevated liver function tests with an alkaline phosphatase of 253 and AST and ALT of 60 and 90 respectively. It does not look like abdominal ultrasound has been done. The patient is extremely eager for discharge, says that his dog misses him and he is happy that the linux server engineer has told him that the elective catheterization next week should suffice. He understands that he is to come back to the Emergency Department should his symptoms escalate. We will add daily aspirin for cardio prevention. He will need an outpatient abdominal ultrasound to workup elevated liver function tests or at least repeat liver function tests in 1-2 weeks' time. No other changes have been made in his medication regimen. PHYSICAL EXAMINATION: VITAL SIGNS: Notable for that the patient has been afebrile, blood pressure has been in the one-teens over 80s, heart rate is in the 80s-90s and regular. He is breathing comfortably and saturating normally on room air. GENERAL: He is a pleasant 55-year-old man, alert and oriented x 3, in no acute distress. HEENT: Unremarkable. CHEST: Clear to auscultation. HEART: S1, S2 normal. Regular rate and rhythm. No murmurs or gallops are noted. ABDOMEN: Obese, soft, nontender, nondistended. No masses or organomegaly noted. EXTREMITIES: Unremarkable. FINAL DIAGNOSES: 1. Chronic angina for which he is planning an elective outpatient catheterization this week. 2. Abnormal chest x-ray with interstitial edema versus infiltrate, though clinical suspicion is low for pulmonary infection. We have started antibiotics for interstitial pneumonia. The patient tested negative for COVID-19 here. 3. Elevated liver function tests that need followup as an outpatient. Greater than 30 minutes were spent on coordinating this discharge with greater than 50% in counseling and coordination of care, most of which in discussion with nursing, patient, and at bedside. YIN ULRICH MD DR: ANSLEY/alejandra JOB#: [id number] / [id number] AUGIE Gore MD, VENKAT MD
--- NOTE | 2021-01-04 19:21 | NUR ---
Discharge Note: ERIC MCCOY Discharge instructions and discharge home medications reviewed with Patient and a copy given. All questions have been answered and understanding verbalized. The following instructions and handouts were given: diet, cp, hyper-hypoglycemia, hyper-hypotension, follow up cath, and meds. Discontinued lines and drains: IV removed, no lines present. Patient discharged to Home, left with family to private vehicle.
[2021-01-04] MEDS ORDERED: LACTOBACILLUS RHAMNOSUS GG 1 CAPSULE. PO SCH (21:00)
== END 2021-01-04 17:55 | disposition home or self-care (01) | DRG 303 ==
LOC: ER 21:39 → 2 NORTH 23:36 → OBSVTOIN 23:37
PROVIDERS: ADMIT Internal Medicine; ATTEND Internal Medicine
DX: I25.119 Atherosclerotic heart disease of native coronary artery with unspecified angina pectoris (principal); J84.9 Interstitial pulmonary disease, unspecified; E11.9 Type 2 diabetes mellitus without complications; F17.200 Nicotine dependence, unspecified, uncomplicated; G89.29 Other chronic pain; Z20.822 Contact with and (suspected) exposure to COVID-19; I10 Essential (primary) hypertension; I25.2 Old myocardial infarction; Z82.49 Family history of ischemic heart disease and other diseases of the circulatory system; Z83.3 Family history of diabetes mellitus; Z87.442 Personal history of urinary calculi; Z98.61 Coronary angioplasty status; Z88.8 Allergy status to other drugs, medicaments and biological substances
CPT/HCPCS: 36415; 71045; 80053; 82962; 83605; 83880; 84484; 85025; 85027; 85520; 87426; 93005; 94640; 96365; 96375; 96376; 99285; G0379; J0456; J0696; J1644; J1815; J2270; U0003; G0378

== ENCOUNTER → 2021-01-10 | Outpatient (CLI) | payer MEDICARE, MEDICAID ==
[~2021-01-10] VITALS: Ht 182.9 cm; Wt 122.0 kg
[2021-01-10] VITALS (10 sets, daily range): BP systolic 111–142; BP diastolic 60–86
[~2021-01-10] MED LIST changes: +ACET325T9 PO; +CHOL4POW PO; +CHOL4POW2 PO; +DESV100T16 PO; +DIAZ2TAB3 PO; +DOXY100T PO; +INSU100I27 SQ; +INSU100I53 SQ; +IODIXANOL 320 MG/ML 100 ML VIAL. IART ONE; +IODIXANOL 320 MG/ML 100 ML VIAL. ONE; +ISOS30TA19 PO; +ISOSORBIDE MONONITRATE ER 30 MG TAB.ER.24H PO ONE; +IV 1/2 NORMAL SALINE 1,000 ML IV SCH; +LEVO125T5 PO; +LIDOCAINE 1% Multi-Dose 20 ML VIAL. INJ ONE; +LIDOCAINE 1% Multi-Dose 20 ML VIAL. ONE; +METO10TA PO; +MIDAZOLAM HCL/PF 2 MG/2 ML VIAL. IV ONE; +MIDAZOLAM HCL/PF 2 MG/2 ML VIAL. ONE; +MIRT7.5T8 PO; +PANT40TA6 PO; +PERFLUTREN PROTEIN-A MICROSPHR 0.22 MG/ML 3 ML VIAL. IV ONE; +PREG75CA67 PO; +ROPI2TAB PO; +fentaNYL PF VIAL 100 MCG/2 ML VIAL IV ONE; +fentaNYL PF VIAL 100 MCG/2 ML VIAL ONE
[2021-01-10 08:00] LABS: HEMATOCRIT 48.5 % (39.0-53.0); HEMOGLOBIN 16.5 g/dL (13.0-17.5); RED BLOOD COUNT 5.29 x10^6/uL (4.30-5.70); RED CELL DISTRIBUTION WIDTH 15.4 % (11.5-14.5); WHITE BLOOD COUNT 8.4 x10^3/uL (4.0-11.0)
[2021-01-10 08:10] LABS: PROTHROMBIN TIME PATIENT 13.9 SEC (11.7-14.0)
[2021-01-10 08:23] LABS: CALCIUM 9.1 mg/dL (8.5-10.1); CREATININE 1.3 mg/dL (0.7-1.3); GFR 57.1; POTASSIUM 4.1 mmol/L (3.5-5.1)
--- NOTE | 2021-01-10 09:28 | PDOC ---
MODERATE SEDATION ASSESSMENT RISKS/ALTERNATIVES Risks/Alternatives Risks and alternatives of this type of sedation and procedure discussed with: RISK/ALTERNATIVES: Patient H & P ON CHART H & P H & P on chart and reviewed for co-morbid conditions and appropriate labs. H&P ON CHART: Yes STATUS PREG STATUS ASSESSED: N/A MEDS/ALLERGIES REVIEWED Meds/Allergies Reviewed Medications and Allergies including time and route of recently administered narcotics and sedatives. MEDS/ALLERGIES REVIEWED: Yes ASA RATING ASA RATING: III AIRWAY ASSESSMENT Airway Assessment Airway patency, oral function limitations, presence of caps, crowns, dentures, partials, and ability to extend neck assessed. AIRWAY ASSESSMENT: Yes MALLAMPATI SCORE MALLAMPATI SCORE: II PRE-SEDATION ASSESSMENT PRE-SEDATION ASSESSMENT: Yes PAUL ARELLANO MD Jan 10, 2021 09:28
--- NOTE | 2021-01-10 09:39 | CARD ---
MR#: [id number] Date of Study: 01/10/2021 Ordering Physician: PAUL CAMPBELL, Referring Physician: PAUL CAMPBELL Tech: RT Ricky(R) APPROVED REPORT Technologist: Imani Sanchez RT(R) Nurse: Alondra Martinez RN Procedure(s) performed: Right and left heart catheterization, selective coronary angiography MODERATE SEDATION TIME: 32 MINUTES FLUORO TIME: 2.1 MIN DOSE: 37.4 GYCM2 CONTRAST: 67CC VISI INDICATION The indication(s) include : Unstable angina, refractory dyspnea. [facility] Clinical Frailty Scale [facility] Clinical Frailty Scale: Mildly Frail Heart Failure Heart Failure: No CASE TECHNIQUE IV conscious sedation was used throughout procedure with appropriate monitoring and was performed in the presence of a registered nurse who was an independent trained observer other than the physician p erforming the procedure. During this case, Fluoroscopy and low osmolar contrast were used for imaging . Specimen(s) Removed: No Estimated Blood loss: 15 cc's. PROCEDURE NARRATIVE After explaining the risks, benefits and alternative options, informed consent was obtained from montrell ent. Patient was brought to the cardiac Medication Reconciliation Technician and his right groin was prepped and draped in the u sual fashion. 20 cc of 2% lidocaine was infiltrated into the skin and subcutaneous tissues for local anesthesia. Arterial and venous accesses were obtained in the right common femoral artery and vein respectively and 6 and 8 Venezuelan sheaths inserted. A 7.5 [place] Eddy-Lizzie catheter was advanced under fluoroscopic guidance and intracardiac pressures, oxygen saturations and cardiac output by Cheryl meth od determined. Subsequently, 6 [place]an JL4 and 6 [place]an JR4 catheters were used to perform selective angiography of the left and right coronary arteries. LVEDP and transaortic gradients were measured. Left ventriculography was not performed since patient had a recent 2D echo. Patient tolerated the p rocedure well. Hemostasis was achieved using Angio-Seal and manual compression. There were no immed iate complications. A. RIGHT HEART CATHETERIZATION 1. Intracardiac pressures: Mean right atrial pressure 5 mmHg, right ventricular pressure 26/0 mmHg, pulmonary artery pressure 23/6 mmHg with a mean PA pressure 14 mmHg and mean pulmonary capillary wedg e pressure 8 mmHg. No pulmonary hypertension. 2. Oxygen saturations: Right atrium 77.8%, pulmonary artery 77.9%, femoral arterial sheath 98.6%. N o evidence of intracardiac shunt. 3. Cardiac output by Cheryl method 6 L/min. B. LEFT HEART CATHETERIZATION 1. Hemodynamics: Left ventricular end-diastolic pressure 13 mmHg. No pullback gradient across the a ortic valve. 2. Coronary angiography: a. The left main coronary artery arose from the left sinus of Valsalva, gave rise to the left anteri or descending and left circumflex arteries and did not show any significant stenosis. b. The left anterior descending artery did not show any significant stenosis c. The left circumflex artery did not show any significant stenosis. d. The right coronary artery was a dominant vessel arising from the right sinus of Valsalva that did not show any significant stenosis. Conclusion 1. No significant coronary disease 2. Normal right and left-sided filling pressures without any pulmonary hypertension 3. No evidence of intracardiac shunt Recommendations Patient's chest pain with typical features relieved with nitroglycerin could be secondary to his know n diagnosis of vasospastic angina. We will start long-acting nitroglycerin for symptomatic relief. Signed by : Paul Campbell, Electronically Approved : 01/10/2021 09:38:50
--- NOTE | 2021-01-10 11:48 | NUR ---
Pt discharged from CV observation to Cardiac Center for Echo. PIV left in place for Echo. Post cardiac Catheterization teach done with patient and significant other. Pt ambulated and tolerated PO.
--- NOTE | 2021-01-10 14:42 | CARD ---
MR#: [id number] Date of Study: 01/10/2021 Ordering Physician: PAUL ARELLANO, Referring Physician: PAUL ARELLANO Tech: Mary Jarvis [facility] APPROVED REPORT EXAM: Two-dimensional and M-mode echocardiogram with Doppler and color Doppler. Other Information Quality : Technically LimitedHR: 54bpm Rhythm : NSR INDICATION Chest Pain RISK FACTORS Hypertension Obesity 2D DIMENSIONS RVDd3.3 (2.9-3.5cm)Left Atrium(2D)3.3 (1.6-4.0cm) IVSd1.1 (0.7-1.1cm)Aortic Root(2D)3.0 (2.0-3.7cm) LVDd4.8 (3.9-5.9cm)LVOT Diameter2.1 (1.8-2.4cm) PWd0.9 (0.7-1.1cm)LVDs2.8 (2.5-4.0cm) FS (%) 41.8 %SV78.9 ml LVEF(%)72.7 (>50%) Aortic Valve AoV Peak Julien.122.2cm/sAoV VTI23.7cm AO Peak GR.6.0mmHgLVOT Peak Julien.114.0cm/s AO Mean GR.2mmHgAVA (VMAX)3.18cm2 Mitral Valve MV E Xdifomna18.4cm/sMV DECEL [id number] MV A Lmmhnznj21.7cm/sE/A Ratio1.0 Pulmonary Valve PV Peak Miqptvmi98.6cm/s LEFT VENTRICLE The left ventricle is normal size. There is normal left ventricular wall thickness. The left ventricu lar systolic function is normal. Estimated ejection fraction 60-65%. There is normal LV segmental wa ll motion. The left ventricular diastolic function and filling is normal for age. RIGHT VENTRICLE The right ventricle is normal size. There is normal right ventricular wall thickness. The right ventr icular systolic function is normal. ATRIA The left atrium size is normal. The right atrium size is normal. The interatrial septum is intact wit h no evidence for an atrial septal defect or patent foramen ovale as noted on 2-D or Doppler imaging. AORTIC VALVE The aortic valve is normal in structure and function. Doppler and Color Flow revealed no significant aortic regurgitation. There is no significant aortic valvular stenosis. There is no aortic valvular v egetation. MITRAL VALVE The mitral valve is normal in structure and function. There is no evidence of mitral valve prolapse. There is no mitral valve stenosis. Doppler and Color Flow revealed no mitral valve regurgitation note d. TRICUSPID VALVE The tricuspid valve is normal in structure and function. Doppler and Color Flow revealed trace tricus pid valve regurgitation. There is no tricuspid valve stenosis. PULMONIC VALVE The pulmonary valve is normal in structure and function. Doppler and Color Flow revealed no pulmonic valvular regurgitation. GREAT VESSELS The aortic root is normal in size. The ascending aorta is normal in size. The IVC is normal in size a nd collapses >50% with inspiration. PERICARDIAL EFFUSION There is no evidence of significant pericardial effusion. Critical Notification Critical Value: No <Conclusion> The left ventricular systolic function is normal. Estimated ejection fraction 60-65%. There is normal LV segmental wall motion. Trace tricuspid valve regurgitation. There is no evidence of significant pericardial effusion. Signed by : Paul Arellano, Electronically Approved : 01/10/2021 14:41:14
== END | disposition home or self-care (01) ==
LOC: ECHO 07:17
PROVIDERS: ATTEND Internal Medicine Cardiovascular Disease
DX: I25.110 Atherosclerotic heart disease of native coronary artery with unstable angina pectoris (principal); R06.09 Other forms of dyspnea; I10 Essential (primary) hypertension; E11.9 Type 2 diabetes mellitus without complications; F41.9 Anxiety disorder, unspecified; F17.210 Nicotine dependence, cigarettes, uncomplicated; Z87.440 Personal history of urinary (tract) infections; Z79.899 Other long term (current) drug therapy; Z98.890 Other specified postprocedural states; Z79.82 Long term (current) use of aspirin; Z79.4 Long term (current) use of insulin; Z72.89 Other problems related to lifestyle; Z88.1 Allergy status to other antibiotic agents; Z88.5 Allergy status to narcotic agent; Z88.8 Allergy status to other drugs, medicaments and biological substances; Z82.49 Family history of ischemic heart disease and other diseases of the circulatory system; Z83.3 Family history of diabetes mellitus
CPT/HCPCS: 36415; 80048; 85027; 85610; 93460; 99152; 99153; C1760; C1769; C1773; C1892; C8929; J1644; J2250; J3010; J3490; Q9956; Q9967; G0269; C1771

== ENCOUNTER 2021-02-07 21:32 | Emergency (ER) | payer MEDICARE, MEDICAID ==
[~2021-02-07] VITALS: Ht 182.9 cm; Wt 127.0 kg
[~2021-02-07 21:32] MED LIST changes: -IODIXANOL 320 MG/ML 100 ML VIAL. IART ONE; -IODIXANOL 320 MG/ML 100 ML VIAL. ONE; -ISOSORBIDE MONONITRATE ER 30 MG TAB.ER.24H PO ONE; -IV 1/2 NORMAL SALINE 1,000 ML IV SCH; -LIDOCAINE 1% Multi-Dose 20 ML VIAL. INJ ONE; -LIDOCAINE 1% Multi-Dose 20 ML VIAL. ONE; -MIDAZOLAM HCL/PF 2 MG/2 ML VIAL. IV ONE; -MIDAZOLAM HCL/PF 2 MG/2 ML VIAL. ONE; -PERFLUTREN PROTEIN-A MICROSPHR 0.22 MG/ML 3 ML VIAL. IV ONE; -fentaNYL PF VIAL 100 MCG/2 ML VIAL IV ONE; -fentaNYL PF VIAL 100 MCG/2 ML VIAL ONE
[2021-02-07 22:18] LABS: BASO # 0.1 x10^3/uL (0.0-0.2); BASO % 1 % (0-3); EOS # 0.2 x10^3/uL (0.0-0.7); EOS % 3 % (0-3); HEMATOCRIT 49.1 % (39.0-53.0); HEMOGLOBIN 16.6 g/dL (13.0-17.5); LYMPH # 1.8 x10^3/uL (1.0-4.8); LYMPH % 19 % (24-48); MEAN CORPUSCULAR HEMOGLOBIN 31 pg (25-35); MEAN CORPUSCULAR HGB CONC 34 g/dL (31-37); MEAN CORPUSCULAR VOLUME 91 fL (79-100); MONO # 0.8 x10^3/uL (0.0-1.1); MONO % 9 % (0-9); NEUT # 6.2 x10^3/uL (1.8-7.7); NEUT % 69 % (31-73); PLATELET COUNT 120 x10^3/uL (140-400); RED CELL DISTRIBUTION WIDTH 14.9 % (11.5-14.5); WHITE BLOOD COUNT 9.1 x10^3/uL (4.0-11.0)
--- NOTE | 2021-02-07 22:20 | PHYS DOC ---
Past Medical History Past Medical History: Diabetes-Type II, Hypertension, Kidney Stone, UT, P ancreatitis Additional Past Medical Histor: "mi 2015" Past Surgical History: Other Additional Past Surgical Histo: Stents for kidney stones, lithotripsy x9, PTCA Smoking Status: Current Every Day Smoker Alcohol Use: Occasionally Drug Use: Marijuana General Adult EDM: Chief Complaint: CHEST PAIN HPI: HPI: Patient is a 55 year old male who presents to the emergency department with chest pain. Patient states that around noon he started experiencing a crushing- like chest pain that is 9 out of 10 and constant in nature. He states that it feels like an elephant is sitting on his chest and that warm water is running down his left arm. Patient states that the pain radiates down his left arm and that he has shortness of breath and dyspnea on exertion. Patient is nauseous and has vomited several times and experiencing headache and dizziness but no blurred vision. Patient has a history of cardiac disease with a previous UT and takes daily long-acting nitroglycerin. Patient did not take anything to alleviate his symptoms. Review of Systems: Review of Systems: Review of systems: Constitutional symptoms- No fever, no chills. Eyes- No Discharge, No Visual Loss Respiratory symptoms-positive shortness of breath, No wheezing, positive dyspnea on Exertion Cardiovascular Systems; positive chest pain, No Palpitations, No syncope Gastrointestinal symptoms: NO abdominal pain, positive nausea, positive vomiting, no diarrhea. Genitourinary symptoms: No dysuria. Musculoskeletal symptoms: No back pain left arm pain. NEUROLOGICAL Symptoms: No headache, no generalized weakness; No focal Weakness Heart Score: C/O Chest Pain: Yes HEART Score for Chest Pain: HEART Score for Chest Pain Response (Comments) Value History Moderately Suspicious 1 ECG Nonspecific Repolarizatio 1 Age >45 - < 65 1 Risk Factors >3 Risk Factors or Hx CAD 2 Troponin < Normal Limit 0 Total 5 Risk Factors: Risk Factors: DM, Current or recent (<one month) smoker, HTN, HLP, family history of CAD, obesity. Risk Scores: Score 0 - 3: 2.5% MACE over next 6 weeks - Discharge Home Score 4 - 6: 20.3% MACE over next 6 weeks - Admit for Clinical Observation Score 7 - 10: 72.7% MACE over next 6 weeks - Early Invasive Strategies Allergies: Allergies: Allergies Coded Allergies Type Severity Reaction Last Updated Verified codeine Allergy Intermediate hives 01/03/21 Yes ketorolac Allergy Intermediate swelling 01/03/21 Yes ciprofloxacin Allergy Unknown 01/10/21 Yes Physical Exam: PE: General: alert, apparent discomfort Skin: warm, dry and intact. Head:: Normocephalic, atraumatic. Neck: Trachea midline. Eyes: EOMI, Normal conjunctiva, No drainage CARDIOVASCULAR: Regular rate and rhythm, radial pulses intact RESPIRATORY: No respiratory distress Back: Full range of motion. MUSCULOSKELETAL: Full range of motion of bilateral upper and lower extremities. GASTROINTESTINAL: Abdomen soft without rebound or guarding. NEUROLOGICAL: Alert and noted to person, place and time. No neurological deficits observed Psychiatric: Cooperative. Normal judgment EKG: EKG: EKG performed at 2135 heart rate [address] elevation no ST depression no acute UT [] Radiology/Procedures: Radiology/Procedures: [] Course & Med Decision Making: Course & Med Decision Making Pertinent Labs and Imaging studies reviewed. (See chart for details) [] Was evaluated for chief complaint. Work-up consisted of laboratory analysis radiologic imaging and EKG. Results reviewed and discussed with patient. Patient's EKG no acute ischemic changes. Patient had troponin x2 which were negative. Patient's treated with aspirin and morphine with improvement of his pain. Patient with cardiac catheterization less than 1 month ago no stent placement no significant cardiac disease. Patient was discharged home with instructions to follow-up with primary care physician. Qing Disclaimer: Qing Disclaimer: This electronic medical record was generated, in whole or in part, using a voice recognition dictation system. Departure Departure Impression: Primary Impression: Chest pain Additional Impression: Non-cardiac chest pain Disposition: HOME / SELF CARE / HOMELESS Condition: STABLE Referrals: AUGIE CHACKO MD (PCP) Patient Instructions: Chest Pain (Nonspecific) Scripts Hydrocodone Bit/Acetaminophen (HYDROCODONE-APAP 5-325 ) 1 Tab Tablet 1 TAB PO PRN Q6HRS PRN for PAIN, #14 TAB 0 Refills Prov: YESSENIA CONNOR DO 02/08/21 YESSENIA CONNOR DO Feb 07, 2021 22:20
[2021-02-07 22:37] LABS: CALCIUM 8.8 mg/dL (8.5-10.1); CREATININE 1.3 mg/dL (0.7-1.3); GFR 57.1; POTASSIUM 4.2 mmol/L (3.5-5.1)
[2021-02-07] MEDS: ONDANSETRON PF 4 MG/2 ML VIAL. IVP ONE ×2 (22:38→23:45)
[2021-02-07] MEDS: ASPIRIN 325 MG TABLET PO ONE (22:38)
[2021-02-07] MEDS: MORPHINE SULFATE 4 MG/ML VIAL. IV ONE ×2 (22:38→23:45)
[2021-02-07 22:41] LABS: ALBUMIN 3.4 g/dL (3.4-5.0); ALBUMIN/GLOBULIN RATIO 0.9 (1.0-1.7); TOTAL BILIRUBIN 0.9 mg/dL (0.2-1.0); TOTAL PROTEIN 7.3 g/dL (6.4-8.2)
--- NOTE | 2021-02-07 23:02 | RAD ---
Exam: Chest one view INDICATION: Chest pain TECHNIQUE: Frontal view of the chest Comparisons: 01/02/2021 FINDINGS: The cardiomediastinal silhouette and pulmonary vessels are within normal limits. The lung and pleural spaces are clear. IMPRESSION: No acute cardiopulmonary process. Electronically signed by: Kelly Kennedy MD (02/07/2021 11:00 PM) BR[facility]
[2021-02-08 01:51] VITALS: BP 139/80
[2021-02-08] MEDS ORDERED: HYDR-2761 PO (02:12)
--- NOTE | 2021-02-08 20:02 | EKG ---
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
== END 2021-02-08 02:33 | disposition home or self-care (01) ==
LOC: ER 21:32
DX: R07.89 Other chest pain (principal); R06.02 Shortness of breath; R11.2 Nausea with vomiting, unspecified; E11.9 Type 2 diabetes mellitus without complications; I10 Essential (primary) hypertension; I25.2 Old myocardial infarction; K86.1 Other chronic pancreatitis; F17.200 Nicotine dependence, unspecified, uncomplicated; F12.90 Cannabis use, unspecified, uncomplicated; Z98.890 Other specified postprocedural states; Z87.442 Personal history of urinary calculi; Z88.1 Allergy status to other antibiotic agents; Z88.5 Allergy status to narcotic agent; Z88.8 Allergy status to other drugs, medicaments and biological substances
CPT/HCPCS: 36415; 71045; 80053; 83880; 84484; 85025; 93005; 96361; 96374; 96375; 99285; J2270; J2405

== ENCOUNTER 2021-03-26 22:52 | Inpatient (IN) | payer MEDICARE, MEDICAID ==
[~2021-03-26] VITALS: Ht 182.9 cm; Wt 129.5 kg
[~2021-03-26 22:52] MED LIST changes: +HYDR-2761 PO
[2021-03-26] MEDS ORDERED: ASPIRIN CHEWABLE 81 MG TABLET. PO ONE (23:15)
--- NOTE | 2021-03-26 23:44 | RAD ---
XR CHEST 1V History: Reason: chest pain / Spl. Instructions: / History: Comparison: February 07, 2021 Findings: Linear bibasilar opacities. No pleural effusion. No pneumothorax. Normal heart size. Impression: 1. Linear bibasilar opacities, likely atelectasis. Electronically signed by: Julian Gonzalez DO (03/26/2021 11:42 PM) [facility] [place]
[2021-03-27 00:21] LABS: BASO % 1 % (0-3); EOS % 0 % (0-3); HEMATOCRIT 50.8 % (39.0-53.0); HEMOGLOBIN 16.8 g/dL (13.0-17.5); LYMPH # 1.1 x10^3/uL (1.0-4.8); LYMPH % 12 % (24-48); MEAN CORPUSCULAR HEMOGLOBIN 31 pg (25-35); MEAN CORPUSCULAR HGB CONC 33 g/dL (31-37); MEAN CORPUSCULAR VOLUME 93 fL (79-100); MONO # 0.5 x10^3/uL (0.0-1.1); MONO % 6 % (0-9); NEUT # 7.8 x10^3/uL (1.8-7.7); NEUT % 82 % (31-73); PLATELET COUNT 96 x10^3/uL (140-400); RED BLOOD COUNT 5.49 x10^6/uL (4.30-5.70); RED CELL DISTRIBUTION WIDTH 15.2 % (11.5-14.5); WHITE BLOOD COUNT 9.5 x10^3/uL (4.0-11.0)
[2021-03-27] MEDS ORDERED: MORPHINE SULFATE 10 MG/ML VIAL. IV ONE ×2 (00:30→01:45)
[2021-03-27 00:36] LABS: CREATININE 1.6 mg/dL (0.7-1.3); GFR 44.9; POTASSIUM 5.7 mmol/L (3.5-5.1)
[2021-03-27] MEDS ORDERED: IV NORMAL SALINE 1000ML BAG 1,000 ML IV ONE (01:00)
[2021-03-27] MEDS ORDERED: SUMA20SP2 NS (02:42)
[2021-03-27] MEDS ORDERED: PYRI60TA PO (02:42)
[2021-03-27] MEDS ORDERED: GALC120P SQ (02:42)
[2021-03-27] MEDS ORDERED: DIAZ10TA5 PO (02:42)
[2021-03-27] MEDS ORDERED: OMEP40CA7 PO (02:42)
[2021-03-27] MEDS ORDERED: RIZA10TA7 PO (02:42)
[2021-03-27] MEDS ORDERED: POTA20TA4 PO (02:42)
[2021-03-27] MEDS ORDERED: ISOS30TA68 PO (02:42)
[2021-03-27] MEDS ORDERED: ATOR10TA60 PO (02:42)
--- NOTE | 2021-03-27 02:50 | ED.ADGEN ---
Past Medical History Past Medical History: Diabetes-Type II, Hypertension, Kidney Stone, MD, Pancreatitis Additional Past Medical Histor: "mi 2016", vascular spasms Past Surgical History: Other Additional Past Surgical Histo: Stents for kidney stones, lithotripsy x9, PTCA Smoking Status: Current Every Day Smoker Alcohol Use: Occasionally Drug Use: Marijuana General Adult EDM: Chief Complaint: CHEST PAIN HPI: HPI: Patient is a 55-year-old male with past medical history of coronary artery disease who presents to the emergency room complaining of chest pain. A couple hours ago patient had sudden onset substernal chest pressure like an elephant sitting on his chest. He has radiation of pain into his neck. He denies any diaphoresis, nausea, vomiting, swelling. He takes a long-acting nitro at home along with a baby aspirin. He has not tried to take anything for his pain at home. He states he was resting when it started. He states has been quite sometime since he has had pain like this. Review of Systems: Review of Systems: Complete ROS is negative unless otherwise documented in HPI Current Medications: Current Medications Medications (Trade) Dose Ordered Sig/Christa Start Time Stop Time Status Last Admin Dose Admin Aspirin (Aspirin Chewable) 324 mg 1X ONCE 03/26/21 23:15 03/26/21 23:16 DC 03/26/21 23:25 324 MG Morphine Sulfate (Morphine Sulfate) 5 mg 1X ONCE 03/27/21 00:30 03/27/21 00:31 DC 03/27/21 00:24 5 MG Allergies: Allergies: Allergies Coded Allergies Type Severity Reaction Last Updated Verified codeine Allergy Intermediate hives 01/03/21 Yes ketorolac Allergy Intermediate swelling 01/03/21 Yes ciprofloxacin Allergy Unknown 01/10/21 Yes Physical Exam: PE: General: Awake, alert, mild distress. Well Nourished, well hydrated. Cooperative HEENT: Atraumatic, EOMI, PERRL, airway patent, moist oral mucosa Neck: Supple, trachea midline Respiratory: CTA bilaterally, normal effort, no wheezing/crackles CV: RRR, no murmur, cap refill <2 GI: Soft, nondistended, nontender, no masses MSK: No obvious deformities Skin: Warm, dry, intact Neuro: A&O x3, speech NL, sensory and motor grossly intact, no focal deficits Psych: Normal affect, normal mood, not suicidal or homicidal Current Patient Data: Labs: Laboratory Tests Test 03/27/21 00:10 White Blood Count 9.5 x10^3/uL (4.0-11.0) Red Blood Count 5.49 x10^6/uL (4.30-5.70) Hemoglobin 16.8 g/dL (13.0-17.5) Hematocrit 50.8 % (39.0-53.0) Mean Corpuscular Volume 93 fL (79-100) Mean Corpuscular Hemoglobin 31 pg (25-35) Mean Corpuscular Hemoglobin Concent 33 g/dL (31-37) Red Cell Distribution Width 15.2 % (11.5-14.5) H Platelet Count 96 x10^3/uL (140-400) L Neutrophils (%) (Auto) 82 % (31-73) H Lymphocytes (%) (Auto) 12 % (24-48) L Monocytes (%) (Auto) 6 % (0-9) Eosinophils (%) (Auto) 0 % (0-3) Basophils (%) (Auto) 1 % (0-3) Neutrophils # (Auto) 7.8 x10^3/uL (1.8-7.7) H Lymphocytes # (Auto) 1.1 x10^3/uL (1.0-4.8) Monocytes # (Auto) 0.5 x10^3/uL (0.0-1.1) Eosinophils # (Auto) 0.0 x10^3/uL (0.0-0.7) Basophils # (Auto) 0.0 x10^3/uL (0.0-0.2) Sodium Level 132 mmol/L (136-145) L Potassium Level 5.7 mmol/L (3.5-5.1) H Chloride Level 99 mmol/L (98-107) Carbon Dioxide Level 23 mmol/L (21-32) Anion Gap 10 (6-14) Blood Urea Nitrogen 20 mg/dL (8-26) Creatinine 1.6 mg/dL (0.7-1.3) H Estimated GFR (Cockcroft-Gault) 44.9 Glucose Level 637 mg/dL (70-99) *H Calcium Level 9.0 mg/dL (8.5-10.1) Troponin I Quantitative < 0.017 ng/mL (0.000-0.055) Laboratory Tests 03/27/21 00:10 Laboratory Tests 03/27/21 00:10 Vital Signs: Vital Signs Date Time Temp Pulse Resp B/P (MAP) Pulse Ox O2 Delivery O2 Flow Rate FiO2 03/27/21 00:38 72 16 158/81 (106) 95 Room Air 03/26/21 22:55 98.3 98.3 EKG: EKG: [] Heart Score: C/O Chest Pain: Yes HEART Score for Chest Pain: HEART Score for Chest Pain Response (Comments) Value History Highly Suspicious 2 ECG Nonspecific Repolarizatio 1 Age >45 - < 65 1 Risk Factors >3 Risk Factors or Hx CAD 2 Troponin < Normal Limit 0 Total 6 Risk Factors: Risk Factors: DM, Current or recent (<one month) smoker, HTN, HLP, family history of CAD, obesity. Risk Scores: Score 0 - 3: 2.5% MACE over next 6 weeks - Discharge Home Score 4 - 6: 20.3% MACE over next 6 weeks - Admit for Clinical Observation Score 7 - 10: 72.7% MACE over next 6 weeks - Early Invasive Strategies Radiology/Procedures: Radiology/Procedures: [] Course & Med Decision Making: Course & Med Decision Making Pertinent Labs and Imaging studies reviewed. (See chart for details) Patient is a 55 year-old male who presents to the Emergency Room complaining of chest pain. History is significant for coronary artery disease. At this time, given patient's risk factors and story there is concern for possible cardiac pathology. At this time there is no signs of STEMI, pericarditis, or unstable arrthymia on EKG. Patient has received aspirin today. CBC, BMP, troponin, CXR were ordered to evaluate for causes of chest pain including ACS, anemia, electrolyte abnormalities that can lead to arrhythmias, PTX, pneumonia, pneumomediastinum. Patient does not have any abdominal tenderness that would suggest pancreaititis or cholecystitis and does not need an abdominal work up at this time. Patient's HEART score is 6 placing the patient at moderate risk. Lab work is reassuring. Given patient's heart score he will be admitted to the hospital for further care and evaluation. Dragon Disclaimer: Dragon Disclaimer: This electronic medical record was generated, in whole or in part, using a voice recognition dictation system. Departure Departure Impression: Primary Impression: Hyperglycemia Additional Impression: Chest pain Disposition: ADMITTED INPATIENT Condition: STABLE Scripts Isosorbide Mononitrate (ISOSORBIDE MONONITRATE ER) 60 Mg Tab.er.24h 1 TAB PO DAILY for Angina, #90 TAB 3 Refills Prov: YVROSE APONTE MD 03/28/21 Problem Qualifiers NELIDA LIZ MD Mar 27, 2021 02:50
[2021-03-27 03:00] VITALS: BP 152/87
[2021-03-27] MEDS ORDERED: INSULIN LISPRO 300 UNITS/3 ML VIAL. SQ ONE (03:30)
[2021-03-27] MEDS ORDERED: INSULIN GLARGINE SYRINGE. SQ ONE (03:30)
[2021-03-27 07:00] VITALS: BP 126/82
[2021-03-27] MEDS ORDERED: INSULIN LISPRO 300 UNITS/3 ML VIAL. SQ SCH (07:30)
[2021-03-27] MEDS: MORPHINE SULFATE 4 MG/ML VIAL. IV PRN ×2 (08:27→10:04)
[2021-03-27] MEDS ORDERED: HYDROcodone/APAP 5/325MG 1 TAB TABLET PO PRN (09:45)
[2021-03-27] MEDS ORDERED: ACETAMINOPHEN 325 MG TABLET. PO PRN (09:45)
[2021-03-27] MEDS ORDERED: MORPHINE SULFATE 2 MG/ML VIAL. IV PRN (09:45)
[2021-03-27] MEDS ORDERED: ONDANSETRON PF 4 MG/2 ML VIAL. IVP PRN (09:45)
[2021-03-27] MEDS ORDERED: ZOLPIDEM 5 MG TABLET. PO PRN (09:45)
[2021-03-27] MEDS ORDERED: BISACODYL 10 MG SUPP.RECT. PR PRN (09:45)
[2021-03-27] MEDS ORDERED: MAGNESIUM HYDROXIDE 2,400 MG/30 ML ORAL.SUSP. PO PRN (09:45)
[2021-03-27] MEDS ORDERED: NITROGLYCERIN SUBLINGUAL 0.4 MG BOTTLE OF 25. SL PRN (10:00)
[2021-03-27] MEDS ORDERED: MORPHINE SULFATE 4 MG/ML VIAL. IV PRN (10:00)
--- NOTE | 2021-03-27 10:07 | PDOC1 ---
History and Physical Date of Admission Date of Admission DATE: 03/27/21 TIME: 09:54 Identification/Chief Complaint Chief Complaint Chest pain Source Source: Caregiver, Chart review, Patient History of Present Illness History of Present Illness Patient is a 55-year-old male with past medical history DM2, vasospastic angina, who presents to the ED with complaints of chest pain since last night. States his pain felt more like chest pressure. He reports history of NSTEMI and was diagnosed with vasospastic angina. He took his home daily nitrate without improvement. Labs in the ED showed sodium 132, potassium 5.7, platelet 96, CBG 637, troponins were negative x3. Aspirin, morphine, insulin received in the ER. At the time of my evaluation he still complains of chest pressure. 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 Campbell. Will admit patient for further medical management. Past Medical History Cardiovascular: CAD, HTN, [place] Renal/: Other Endocrine: Diabetes Past Surgical History Past Surgical History Renal stents, lithotripsy Past Surgical History: Other Family History Family History DM2, CVA Family History: Heart Disease Social History Smoke: 1 pack per day ALCOHOL: occassional Drugs: Marijuana Current Problem List Problem List Problems Medical Problems: (1) Chest pain Status: Acute (2) Hyperglycemia Status: Acute Current Medications Current Medications Current Medications Aspirin (Aspirin Chewable) 324 mg 1X ONCE PO Last administered on 03/26/21at 23:25; Start 03/26/21 at 23:15; Stop 03/26/21 at 23:16; Status DC Morphine Sulfate (Morphine Sulfate) 5 mg 1X ONCE IV Last administered on 03/27/21at 00:24; Start 03/27/21 at 00:30; Stop 03/27/21 at 00:31; Status DC Sodium Chloride 1,000 ml @ 1,000 mls/hr 1X ONCE IV Last administered on 03/27/21at 01:02; Start 03/27/21 at 01:00; Stop 03/27/21 at 01:59; Status DC Morphine Sulfate (Morphine Sulfate) 5 mg 1X ONCE IV Last administered on 03/27/21at 01:44; Start 03/27/21 at 01:45; Stop 03/27/21 at 01:46; Status DC Insulin Human Lispro (HumaLOG) 28 units TIDAC SQ Last administered on 03/27/21at 08:44; Start 03/27/21 at 07:30 Insulin Glargine (Lantus Syringe) 80 unit QHS SQ ; Start 03/27/21 at 21:00 Insulin Human Lispro (HumaLOG) 28 units 1X ONCE SQ Last administered on 03/27/21at 03:42; Start 03/27/21 at 03:30; Stop 03/27/21 at 03:34; Status DC Insulin Glargine (Lantus Syringe) 80 unit 1X ONCE SQ Last administered on 03/27/21at 03:42; Start 03/27/21 at 03:30; Stop 03/27/21 at 03:34; Status DC Morphine Sulfate (Morphine Sulfate) 4 mg PRN Q2HR PRN IV PAIN; Start 03/27/21 at 03:45 Ondansetron HCl (Zofran) 4 mg PRN Q6HRS PRN IVP NAUSEA/VOMITING; Start 03/27/21 at 09:45 Zolpidem Tartrate (Ambien) 5 mg PRN QHS PRN PO INSOMNIA, MAY REPEAT IN 1HR; Start 03/27/21 at 09:45 Morphine Sulfate (Morphine Sulfate) 2 mg PRN Q1HR PRN IV PAIN; Start 03/27/21 a t 09:45 Acetaminophen/ Hydrocodone Bitart (Lortab 5/325) 1 tab PRN Q4HRS PRN PO MILD PAIN 1-3; Start 03/27/21 at 09:45 Acetaminophen (Tylenol) 650 mg PRN Q6HRS PRN PO Headaches, Temp > 101.5F; Start 03/27/21 at 09:45 Magnesium Hydroxide (Milk Of Magnesia) 2,400 mg PRN Q12HR PRN PO CONSTIPATION; Start 03/27/21 at 09:45 Bisacodyl (Dulcolax Supp) 10 mg PRN DAILY PRN [place] CONSTIPATION; Start 03/27/21 at 09:45 Heparin Sodium (Porcine) (Heparin Sodium) 5,000 unit Q8HRS SQ ; Start 03/27/21 at 14:00 Aspirin (Aspirin Chewable) 81 mg DAILY PO ; Start 03/28/21 at 09:00; Status UNV Atorvastatin Calcium (Lipitor) 10 mg QHS PO ; Start 03/27/21 at 21:00; Status UNV Isosorbide Mononitrate (Imdur) 30 mg DAILY PO ; Start 03/28/21 at 09:00; Status UNV Levothyroxine Sodium (Synthroid) 125 mcg DAILY06 PO ; Start 03/28/21 at 06:00; Status UNV Mirtazapine (Remeron) 7.5 mg QHS PO ; Start 03/27/21 at 21:00; Status UNV Pregabalin (Lyrica) 75 mg BID PO ; Start 03/27/21 at 21:00; Status UNV Non-Formulary Medication (Desvenlafaxine Succinate (Desvenlafaxine Succinate ER)) 1 tab DAILY PO ; Start 03/28/21 at 09:00; Status UNV Non-Formulary Medication (Diazepam ) 1 tab BID PO ; Start 03/27/21 at 21:00; Status UNV Non-Formulary Medication (Omeprazole ) 40 mg DAILY PO ; Start 03/28/21 at 09:00; Status UNV Non-Formulary Medication (Rizatriptan Benzoate (Rizatriptan)) 1 tab PRN DAILY PRN PO MIGRAINE HEADACHE; Start 03/27/21 at 10:00; Status UNV Active Scripts Active Aspirin 81 Mg Tab.chew 1 Tab PO DAILY 30 Days Reported Pyridostigmine [place] 60 Mg Tablet 1 Tab PO TID Atorvastatin Calcium 10 Mg Tablet 1 Tab PO QHS Emgality (Galcanezumab-Gnlm) 120 Mg/1 Ml Pen.injctr 1 Ml SQ Q4WK Omeprazole 40 Mg Capsule.dr 40 Mg PO DAILY Klor-Con M20 (Potassium Chloride) 20 Meq Tab.er.prt 20 Meq PO DAILY Sumatriptan 20 Mg [place] Unknown Dose NS DAILY Diazepam 10 Mg Tablet 1 Tab PO BID Rizatriptan (Rizatriptan Benzoate) 10 Mg Tablet 1 Tab PO PRN DAILY PRN Isosorbide Mononitrate Er (Isosorbide Mononitrate) 30 Mg Tab.er.24h 1 Tab PO DAILY Levothyroxine Sodium 125 Mcg Tablet 125 Mcg PO DAILY06 Desvenlafaxine Succinate ER (Desvenlafaxine Succinate) 100 Mg Tab.er.24h 1 Tab PO DAILY Mirtazapine 7.5 Mg Tablet 1 Tab PO QHS Pregabalin 75 Mg Capsule 1 Cap PO BID Levemir Flextouch (Insulin Detemir) 100 Unit/1 Ml Insuln.pen 80 Units SQ QHS Insulin Aspart Flexpen (Insulin Aspart) 100 Unit/1 Ml Insuln.pen 28 Units SQ TIDAC Allergies Allergies: Coded Allergies: ascorbic acid (Verified Allergy, Intermediate, Swelling, 03/27/21) codeine (Verified Allergy, Intermediate, hives, 01/03/21) ketorolac (Verified Allergy, Intermediate, swelling, 01/03/21) tolerates ibuprofen ciprofloxacin (Verified Allergy, Unknown, 01/10/21) ROS Review of System GENERAL: No history of weight change, weakness or fevers. SKIN: No bruising, hair changes or rashes. EYES: No blurred, double or loss of vision. NOSE AND THROAT: No history of nosebleeds, hoarseness or sore throat. HEART: Chest pain. Denies palpitations. LUNGS: Denies cough, hemoptysis, wheezing or shortness of breath. GASTROINTESTINAL: Denies nausea, vomiting, abdominal pain. GENITOURINARY: Denies dysuria, frequency, urgency, hematuria. NEUROLOGIC: Denies history of numbness, tingling, tremor or weakness. PSYCHIATRIC: Denies anxiety, denies depression. ENDOCRINE: No history of heat or cold intolerance, polyuria or polydipsia. EXTREMITIES: Denies muscle weakness, joint pain, pain on walking or stiffness. Physical Exam Physical Exam General: Alert, Oriented X3, Cooperative, mild distress. Obese. HEENT: PERRLA, EOMI Lungs: Clear to auscultation, Normal air movement Heart: RRR, no murmurs Cardiovascular: S1, S2 Abdomen: Normal bowel sounds, Soft, No tenderness Extremities: No clubbing, No cyanosis Skin: No rashes, No significant lesion Neuro: Normal speech, Normal tone, Sensation intact Psych/Mental Status: Mental status NL, Mood NL Vitals Vitals Vital Signs Date Time Temp Pulse Resp B/P (MAP) Pulse Ox O2 Delivery O2 Flow Rate FiO2 03/27/21 07:00 97.6 59 16 126/82 (97) 96 Room Air 97.6 Labs Labs Laboratory Tests Test 03/27/21 00:10 03/27/21 02:11 03/27/21 05:15 03/27/21 08:10 White Blood Count 9.5 x10^3/uL (4.0-11.0) Red Blood Count 5.49 x10^6/uL (4.30-5.70) Hemoglobin 16.8 g/dL (13.0-17.5) Hematocrit 50.8 % (39.0-53.0) Mean Corpuscular Volume 93 fL (79-100) Mean Corpuscular Hemoglobin 31 pg (25-35) Mean Corpuscular Hemoglobin Concent 33 g/dL (31-37) Red Cell Distribution Width 15.2 % (11.5-14.5) Platelet Count 96 x10^3/uL (140-400) Neutrophils (%) (Auto) 82 % (31-73) Lymphocytes (%) (Auto) 12 % (24-48) Monocytes (%) (Auto) 6 % (0-9) Eosinophils (%) (Auto) 0 % (0-3) Basophils (%) (Auto) 1 % (0-3) Neutrophils # (Auto) 7.8 x10^3/uL (1.8-7.7) Lymphocytes # (Auto) 1.1 x10^3/uL (1.0-4.8) Monocytes # (Auto) 0.5 x10^3/uL (0.0-1.1) Eosinophils # (Auto) 0.0 x10^3/uL (0.0-0.7) Basophils # (Auto) 0.0 x10^3/uL (0.0-0.2) Sodium Level 132 mmol/L (136-145) Potassium Level 5.7 mmol/L (3.5-5.1) Chloride Level 99 mmol/L (98-107) Carbon Dioxide Level 23 mmol/L (21-32) Anion Gap 10 (6-14) Blood Urea Nitrogen 20 mg/dL (8-26) Creatinine 1.6 mg/dL (0.7-1.3) Estimated GFR (Cockcroft-Gault) 44.9 Glucose Level 637 mg/dL (70-99) Calcium Level 9.0 mg/dL (8.5-10.1) Troponin I Quantitative < 0.017 ng/mL (0.000-0.055) < 0.017 ng/mL (0.000-0.055) < 0.017 ng/mL (0.000-0.055) Glucose (Fingerstick) 507 mg/dL (70-99) Test 6/10/21 08:22 Glucose (Fingerstick) 282 mg/dL (70-99) Laboratory Tests Test 03/27/21 00:10 03/27/21 02:11 03/27/21 05:15 03/27/21 08:10 White Blood Count 9.5 x10^3/uL (4.0-11.0) Red Blood Count 5.49 x10^6/uL (4.30-5.70) Hemoglobin 16.8 g/dL (13.0-17.5) Hematocrit 50.8 % (39.0-53.0) Mean Corpuscular Volume 93 fL (79-100) Mean Corpuscular Hemoglobin 31 pg (25-35) Mean Corpuscular Hemoglobin Concent 33 g/dL (31-37) Red Cell Distribution Width 15.2 % (11.5-14.5) Platelet Count 96 x10^3/uL (140-400) Neutrophils (%) (Auto) 82 % (31-73) Lymphocytes (%) (Auto) 12 % (24-48) Monocytes (%) (Auto) 6 % (0-9) Eosinophils (%) (Auto) 0 % (0-3) Basophils (%) (Auto) 1 % (0-3) Neutrophils # (Auto) 7.8 x10^3/uL (1.8-7.7) Lymphocytes # (Auto) 1.1 x10^3/uL (1.0-4.8) Monocytes # (Auto) 0.5 x10^3/uL (0.0-1.1) Eosinophils # (Auto) 0.0 x10^3/uL (0.0-0.7) Basophils # (Auto) 0.0 x10^3/uL (0.0-0.2) Sodium Level 132 mmol/L (136-145) Potassium Level 5.7 mmol/L (3.5-5.1) Chloride Level 99 mmol/L (98-107) Carbon Dioxide Level 23 mmol/L (21-32) Anion Gap 10 (6-14) Blood Urea Nitrogen 20 mg/dL (8-26) Creatinine 1.6 mg/dL (0.7-1.3) Estimated GFR (Cockcroft-Gault) 44.9 Glucose Level 637 mg/dL (70-99) Calcium Level 9.0 mg/dL (8.5-10.1) Troponin I Quantitative < 0.017 ng/mL (0.000-0.055) < 0.017 ng/mL (0.000-0.055) < 0.017 ng/mL (0.000-0.055) Glucose (Fingerstick) 507 mg/dL (70-99) Test 03/27/21 08:22 Glucose (Fingerstick) 282 mg/dL (70-99) Images Images CHEST AP ONLY XR CHEST 1V History: Reason: chest pain / Spl. Instructions: / History: Comparison: February 07, 2021 Findings: Linear bibasilar opacities. No pleural effusion. No pneumothorax. Normal heart size. Impression: 1. Linear bibasilar opacities, likely atelectasis. VTE Prophylaxis Ordered VTE Prophylaxis Devices: No VTE Pharmacological Prophylaxi: Yes Assessment/Plan Assessment/Plan Chest pain Vasospastic angina DM2 with hyperglycemia Hyperkalemia Hyponatremia Plan: Troponins have been negative x3. Consultation to cardiology. Morphine, nitroglycerin as needed Echocardiogram from 01/10/2021 showed normal left ventricular systolic function, normal left ventricular segmental wall motion, ejection fraction 6065%. He had left heart catheterization on 01/10/2021 that showed no significant coronary disease but vasospastic angina. Will provide basal/prandial insulin per his home regimen Resume home medications FEN - Cardiac diet PPX - Heparin FULL CODE Dispo - inpatient for above Advance Care Planning: Total time spent [id number] with patient and fianc 16 minutes in discussion with goals of care, comfort care, end-of-life care, pain management, code status; patient names Elaine Santoskendall as surrogate decision- maker. Justifications for Admission Other Justification YVROSE APONTE MD Mar 27, 2021 10:07
[2021-03-27] MEDS ORDERED: DEXTROSE 50% 25 GM / 50ML DISP.SYRIN. IV PRN (10:15)
[2021-03-27] MEDS ORDERED: IV DEXTROSE 5% 250 ML BAG. IV PRN (10:15)
[2021-03-27 11:00] VITALS: BP 111/66
[2021-03-27] MEDS: ASPIRIN CHEWABLE 81 MG TABLET. PO SCH (12:45)
[2021-03-27] MEDS: ISOSORBIDE MONONITRATE ER 30 MG TAB.ER.24H PO SCH (12:46)
[2021-03-27] MEDS: PANTOPRAZOLE 40 MG TABLET.DR. PO SCH (12:46)
[2021-03-27] MEDS: LEVOTHYROXINE 125 MCG TABLET PO SCH (12:46)
[2021-03-27] MEDS: PREGABALIN 75 MG CAPSULE PO SCH ×2 (12:46→21:34)
[2021-03-27] MEDS: DESVENLAFAXINE 25 MG TAB.ER.24H PO SCH (12:47)
[2021-03-27] MEDS: diazePAM 5 MG TABLET PO SCH ×2 (12:47→21:33)
[2021-03-27] MEDS: INSULIN LISPRO 300 UNITS/3 ML VIAL. SQ SCH ×2 (13:00→17:49)
--- NOTE | 2021-03-27 13:10 | NUR ---
SS following for discharge planning. SS reviewed pt chart and discussed with pt RN. Pt is from home and is currently requiring oxygen at two liters nasal canula. Cardiology consulted. SS will continue to follow for discharge planning.
[2021-03-27] MEDS: NICOTINE 21MG PATCH. TD SCH (13:34)
[2021-03-27 15:00] VITALS: BP 101/71
[2021-03-27] MEDS: HEPARIN for SUB-Q USE 5,000 UNIT/ML VIAL. SQ SCH ×2 (16:48→21:48)
--- NOTE | 2021-03-27 17:36 | PDOC2 ---
CONSULT Date of Consult Date of Consult DATE: 03/27/21 TIME: 17:36 Reason for Consult Reason for Consult: Chest pain Referring Physician Referring Physician: Dr. Cruz Identification/Chief Complaint Chief Complaint Chest pain Source Source: Chart review, Patient History of Present Illness Reason for Visit: 55-year-old male with history of vasospastic angina presented with retrosternal chest pressure radiating to jaw that started last night. He tried sublingual nitroglycerin without any significant improvement. He denied any orthopnea/PND, palpitations or syncope. His chest pain improved since admission. Past Medical History Cardiovascular: HTN, CT, Other (Coronary artery vasospasm) Renal/: Other Endocrine: Diabetes Past Surgical History Past Surgical History: Cholecystectomy, Other Family History Family History: Heart Disease Social History 1 pack per day ALCOHOL: occassional Drugs: Marijuana Lives: with Family Domestic Violence: Neg Current Problem List Problem List Problems Medical Problems: (1) Chest pain Status: Acute (2) Hyperglycemia Status: Acute Current Medications Current Medications Current Medications Aspirin (Aspirin Chewable) 324 mg 1X ONCE PO Last administered on 03/26/21at 23:25; Start 03/26/21 at 23:15; Stop 03/26/21 at 23:16; Status DC Morphine Sulfate (Morphine Sulfate) 5 mg 1X ONCE IV Last administered on 03/27/21at 00:24; Start 03/27/21 at 00:30; Stop 03/27/21 at 00:31; Status DC Sodium Chloride 1,000 ml @ 1,000 mls/hr 1X ONCE IV Last administered on 03/27/21at 01:02; Start 03/27/21 at 01:00; Stop 03/27/21 at 01:59; Status DC Morphine Sulfate (Morphine Sulfate) 5 mg 1X ONCE IV Last administered on 03/27/21at 01:44; Start 03/27/21 at 01:45; Stop 03/27/21 at 01:46; Status DC Insulin Human Lispro (HumaLOG) 28 units TIDAC SQ Last administered on 03/27/21at 08:44; Start 03/27/21 at 07:30; Stop 03/27/21 at 11:45; Status DC Insulin Glargine (Lantus Syringe) 80 unit QHS SQ ; Start 03/27/21 at 21:00 Insulin Human Lispro (HumaLOG) 28 units 1X ONCE SQ Last administered on 03/27/21at 03:42; Start 03/27/21 at 03:30; Stop 03/27/21 at 03:34; Status DC Insulin Glargine (Lantus Syringe) 80 unit 1X ONCE SQ Last administered on 03/27/21at 03:42; Start 03/27/21 at 03:30; Stop 03/27/21 at 03:34; Status DC Morphine Sulfate (Morphine Sulfate) 4 mg PRN Q2HR PRN IV PAIN Last administered on 03/27/21at 10:04; Start 03/27/21 at 03:45; Stop 03/27/21 at 11:47; Status DC Ondansetron HCl (Zofran) 4 mg PRN Q6HRS PRN IVP NAUSEA/VOMITING; Start 03/27/21 at 09:45 Zolpidem Tartrate (Ambien) 5 mg PRN QHS PRN PO INSOMNIA, MAY REPEAT IN 1HR; Start 03/27/21 at 09:45 Morphine Sulfate (Morphine Sulfate) 2 mg PRN Q1HR PRN IV PAIN; Start 03/27/21 at 09:45 Acetaminophen/ Hydrocodone Bitart (Lortab 5/325) 1 tab PRN Q4HRS PRN PO MILD PAIN 1-3 Last administered on 03/27/21at 12:48; Start 03/27/21 at 09:45 Acetaminophen (Tylenol) 650 mg PRN Q6HRS PRN PO Headaches, Temp > 101.5F; Start 03/27/21 at 09:45 Magnesium Hydroxide (Milk Of Magnesia) 2,400 mg PRN Q12HR PRN PO CONSTIPATION; Start 03/27/21 at 09:45 Bisacodyl (Dulcolax Supp) 10 mg PRN DAILY PRN [place] CONSTIPATION; Start 03/27/21 at 09:45 Heparin Sodium (Porcine) (Heparin Sodium) 5,000 unit Q8HRS SQ ; Start 03/27/21 at 14:00 Aspirin (Aspirin Chewable) 81 mg DAILY PO Last administered on 03/27/21at 12:45; Start 03/27/21 at 11:00 Atorvastatin Calcium (Lipitor) 10 mg QHS PO ; Start 03/27/21 at 21:00 Isosorbide Mononitrate (Imdur) 30 mg DAILY PO Last administered on 03/27/21at 12:46; Start 03/27/21 at 11:00 Levothyroxine Sodium (Synthroid) 125 mcg DAILY06 PO Last administered on 03/27/21at 12:46; Start 03/27/21 at 11:00 Mirtazapine (Remeron) 7.5 mg QHS PO ; Start 03/27/21 at 21:00 Pregabalin (Lyrica) 75 mg BID PO Last administered on 03/27/21at 12:46; Start 03/27/21 at 11:00 Desvenlafaxine Succinate (Pristiq Er) 100 mg DAILY PO Last administered on 03/27/21at 12:47; Start 03/27/21 at 11:00 Diazepam (Valium) 10 mg BID PO Last administered on 03/27/21at 12:47; Start 03/27/21 at 11:00 Pantoprazole Sodium (Protonix) 40 mg DAILYAC PO Last administered on 03/27/21at 12:46; Start 03/27/21 at 11:00 Sumatriptan Succinate (Imitrex) 100 mg PRN DAILY PRN PO MIGRAINE HEADACHE; Start 03/27/21 at 10:30 Nitroglycerin (Nitrostat) 0.4 mg PRN Q5MIN PRN SL CHEST PAIN; Start 03/27/21 at 10:00 Morphine Sulfate (Morphine Sulfate) 4 mg PRN Q2HR PRN IV PAIN; Start 03/27/21 at 10:00 Insulin Glargine (Lantus Syringe) 80 unit QHS SQ ; Start 03/27/21 at 21:00; Stop 03/27/21 at 11:46; Status DC Insulin Human Lispro (HumaLOG) 60 units TIDWMEALS SQ Last administered on 03/27/21at 13:00; Start 03/27/21 at 12:00 Dextrose (Dextrose 50%-Water Syringe) 12.5 gm PRN Q15MIN PRN IV SEE COMMENTS; Start 03/27/21 at 10:15 Dextrose (Iv Dextrose 5%) 250 ml PRN Q15MIN PRN IV SEE COMMENTS; Start 03/27/21 at 10:15 Nicotine (Nicoderm Cq 21mg) 1 patch DAILY TD Last administered on 03/27/21at 13:34; Start 03/27/21 at 14:00 Active Scripts Active Aspirin 81 Mg Tab.chew 1 Tab PO DAILY 30 Days Reported Pyridostigmine [place] 60 Mg Tablet 1 Tab PO TID Atorvastatin Calcium 10 Mg Tablet 1 Tab PO QHS Emgality (Galcanezumab-Gnlm) 120 Mg/1 Ml Pen.injctr 1 Ml SQ Q4WK Omeprazole 40 Mg Capsule.dr 40 Mg PO DAILY Klor-Con M20 (Potassium Chloride) 20 Meq Tab.er.prt 20 Meq PO DAILY Sumatriptan 20 Mg [place] Unknown Dose NS DAILY Diazepam 10 Mg Tablet 1 Tab PO BID Rizatriptan (Rizatriptan Benzoate) 10 Mg Tablet 1 Tab PO PRN DAILY PRN Isosorbide Mononitrate Er (Isosorbide Mononitrate) 30 Mg Tab.er.24h 1 Tab PO DAILY Levothyroxine Sodium 125 Mcg Tablet 125 Mcg PO DAILY06 Desvenlafaxine Succinate ER (Desvenlafaxine Succinate) 100 Mg Tab.er.24h 1 Tab PO DAILY Mirtazapine 7.5 Mg Tablet 1 Tab PO QHS Pregabalin 75 Mg Capsule 1 Cap PO BID Levemir Flextouch (Insulin Detemir) 100 Unit/1 Ml Insuln.pen 80 Units SQ QHS Insulin Aspart Flexpen (Insulin Aspart) 100 Unit/1 Ml Insuln.pen 28 Units SQ TIDAC Allergies Allergies: Coded Allergies: ascorbic acid (Verified Allergy, Intermediate, Swelling, 03/27/21) codeine (Verified Allergy, Intermediate, hives, 01/03/21) ketorolac (Verified Allergy, Intermediate, swelling, 01/03/21) tolerates ibuprofen ciprofloxacin (Verified Allergy, Unknown, 01/10/21) ROS PSYCHOLOGICAL ROS: No: Hallucinations Eyes: No Loss of vision HEENT: No: Epistaxis Respiratory: No: Hemoptysis, Shortness of breath Cardiovascular: yes Chest Pain Gastrointestinal: No Vomiting, No Diarrhea Genitourinary: No Hematuria Neurological: No Seizures Skin: No Rash Physical Exam General: Alert, Oriented X3 HEENT: Atraumatic Lungs: Clear to auscultation Heart: Regular rate Abdomen: Soft Extremities: No edema Neuro: Normal speech Psych/Mental Status: Mood NL Vitals VITALS Vital Signs Date Time Temp Pulse Resp B/P (MAP) Pulse Ox O2 Delivery O2 Flow Rate FiO2 03/27/21 15:00 97.7 65 16 101/71 (81) 96 2.0 97.7 03/27/21 13:18 Nasal Cannula Labs Labs Laboratory Tests Test 03/27/21 00:10 03/27/21 02:11 03/27/21 05:15 03/27/21 08:10 White Blood Count 9.5 x10^3/uL (4.0-11.0) Red Blood Count 5.49 x10^6/uL (4.30-5.70) Hemoglobin 16.8 g/dL (13.0-17.5) Hematocrit 50.8 % (39.0-53.0) Mean Corpuscular Volume 93 fL (79-100) Mean Corpuscular Hemoglobin 31 pg (25-35) Mean Corpuscular Hemoglobin Concent 33 g/dL (31-37) Red Cell Distribution Width 15.2 % (11.5-14.5) Platelet Count 96 x10^3/uL (140-400) Neutrophils (%) (Auto) 82 % (31-73) Lymphocytes (%) (Auto) 12 % (24-48) Monocytes (%) (Auto) 6 % (0-9) Eosinophils (%) (Auto) 0 % (0-3) Basophils (%) (Auto) 1 % (0-3) Neutrophils # (Auto) 7.8 x10^3/uL (1.8-7.7) Lymphocytes # (Auto) 1.1 x10^3/uL (1.0-4.8) Monocytes # (Auto) 0.5 x10^3/uL (0.0-1.1) Eosinophils # (Auto) 0.0 x10^3/uL (0.0-0.7) Basophils # (Auto) 0.0 x10^3/uL (0.0-0.2) Sodium Level 132 mmol/L (136-145) Potassium Level 5.7 mmol/L (3.5-5.1) Chloride Level 99 mmol/L (98-107) Carbon Dioxide Level 23 mmol/L (21-32) Anion Gap 10 (6-14) Blood Urea Nitrogen 20 mg/dL (8-26) Creatinine 1.6 mg/dL (0.7-1.3) Estimated GFR (Cockcroft-Gault) 44.9 Glucose Level 637 mg/dL (70-99) Calcium Level 9.0 mg/dL (8.5-10.1) Troponin I Quantitative < 0.017 ng/mL (0.000-0.055) < 0.017 ng/mL (0.000-0.055) < 0.017 ng/mL (0.000-0.055) Glucose (Fingerstick) 507 mg/dL (70-99) Test 03/27/21 08:22 03/27/21 12:15 03/27/21 17:07 Glucose (Fingerstick) 282 mg/dL (70-99) 181 mg/dL (70-99) 193 mg/dL (70-99) Laboratory Tests Test 03/27/21 00:10 03/27/21 02:11 03/27/21 05:15 03/27/21 08:10 White Blood Count 9.5 x10^3/uL (4.0-11.0) Red Blood Count 5.49 x10^6/uL (4.30-5.70) Hemoglobin 16.8 g/dL (13.0-17.5) Hematocrit 50.8 % (39.0-53.0) Mean Corpuscular Volume 93 fL (79-100) Mean Corpuscular Hemoglobin 31 pg (25-35) Mean Corpuscular Hemoglobin Concent 33 g/dL (31-37) Red Cell Distribution Width 15.2 % (11.5-14.5) Platelet Count 96 x10^3/uL (140-400) Neutrophils (%) (Auto) 82 % (31-73) Lymphocytes (%) (Auto) 12 % (24-48) Monocytes (%) (Auto) 6 % (0-9) Eosinophils (%) (Auto) 0 % (0-3) Basophils (%) (Auto) 1 % (0-3) Neutrophils # (Auto) 7.8 x10^3/uL (1.8-7.7) Lymphocytes # (Auto) 1.1 x10^3/uL (1.0-4.8) Monocytes # (Auto) 0.5 x10^3/uL (0.0-1.1) Eosinophils # (Auto) 0.0 x10^3/uL (0.0-0.7) Basophils # (Auto) 0.0 x10^3/uL (0.0-0.2) Sodium Level 132 mmol/L (136-145) Potassium Level 5.7 mmol/L (3.5-5.1) Chloride Level 99 mmol/L (98-107) Carbon Dioxide Level 23 mmol/L (21-32) Anion Gap 10 (6-14) Blood Urea Nitrogen 20 mg/dL (8-26) Creatinine 1.6 mg/dL (0.7-1.3) Estimated GFR (Cockcroft-Gault) 44.9 Glucose Level 637 mg/dL (70-99) Calcium Level 9.0 mg/dL (8.5-10.1) Troponin I Quantitative < 0.017 ng/mL (0.000-0.055) < 0.017 ng/mL (0.000-0.055) < 0.017 ng/mL (0.000-0.055) Glucose (Fingerstick) 507 mg/dL (70-99) Test 03/27/21 08:22 03/27/21 12:15 03/27/21 17:07 Glucose (Fingerstick) 282 mg/dL (70-99) 181 mg/dL (70-99) 193 mg/dL (70-99) Assessment/Plan Assessment/Plan 1. Chest pain with mixed features. Myocardial infarction has been ruled out. Patient has known history of vasospastic angina. Recent cardiac catheterization 01/10/2021 did not show any significant coronary artery disease. Right heart catheterization at that time did not show any significant pulmonary hypertension or intracardiac shunt. Recent 2D echo showed LVEF 60 to 65%. Increase Imdur to 60 mg daily to optimize therapy. Blood pressure borderline low and hence cannot start amlodipine. 2. Hyperlipidemia: Continue statins 3. Orthostatic hypotension: Being treated with pyridostigmine 4. Diabetes mellitus type 2 with hyperglycemia: Treat per IM 5. Hypothyroidism: Continue levothyroxine Thank you for your consultation. PAUL ARELLANO MD Mar 27, 2021 17:36
[2021-03-27 19:00] VITALS: BP 110/58
[2021-03-27] MEDS ORDERED: ATORVASTATIN CALCIUM 10 MG TABLET. PO SCH (21:00)
[2021-03-27] MEDS ORDERED: INSULIN GLARGINE SYRINGE. SQ SCH ×2 (21:00)
[2021-03-27] MEDS ORDERED: MIRTAZAPINE 7.5 MG TABLET. PO SCH (21:00)
[2021-03-27 22:55] VITALS: BP 103/46
[2021-03-28 02:46] VITALS: BP 118/50
[2021-03-28] MEDS: HEPARIN for SUB-Q USE 5,000 UNIT/ML VIAL. SQ SCH (06:14)
[2021-03-28] MEDS: PANTOPRAZOLE 40 MG TABLET.DR. PO SCH (06:16)
[2021-03-28] MEDS: LEVOTHYROXINE 125 MCG TABLET PO SCH (06:17)
[2021-03-28 06:53] LABS: HEMATOCRIT 49.1 % (39.0-53.0); HEMOGLOBIN 16.5 g/dL (13.0-17.5); RED BLOOD COUNT 5.36 x10^6/uL (4.30-5.70); RED CELL DISTRIBUTION WIDTH 15.3 % (11.5-14.5); WHITE BLOOD COUNT 8.4 x10^3/uL (4.0-11.0)
[2021-03-28 07:00] VITALS: BP 138/74
[2021-03-28 07:14] LABS: CALCIUM 8.5 mg/dL (8.5-10.1); CREATININE 1.4 mg/dL (0.7-1.3); GFR 52.4
[2021-03-28 09:02] VITALS: BP 138/74
[2021-03-28] MEDS: ISOSORBIDE MONONITRATE ER 30 MG TAB.ER.24H PO SCH (09:02)
[2021-03-28] MEDS: ASPIRIN CHEWABLE 81 MG TABLET. PO SCH (09:02)
[2021-03-28] MEDS: PREGABALIN 75 MG CAPSULE PO SCH (09:02)
[2021-03-28] MEDS: diazePAM 5 MG TABLET PO SCH (09:02)
[2021-03-28] MEDS: DESVENLAFAXINE 25 MG TAB.ER.24H PO SCH (09:02)
[2021-03-28] MEDS: NICOTINE 21MG PATCH. TD SCH (09:03)
[2021-03-28] MEDS: INSULIN LISPRO 300 UNITS/3 ML VIAL. SQ SCH (09:09)
[2021-03-28] MEDS ORDERED: ISOS60TA55 PO (09:14)
--- NOTE | 2021-03-28 09:22 | PDOC ---
[facility] [facility] PROGRESS NOTE Date of Service DOS: DATE: 03/28/21 TIME: 09:18 Chief Complaint Chief Complaint Chest pain Vasospastic angina Orthostatic hypotension DM2 with hyperglycemia Hyperkalemia Hyponatremia Plan: Troponins have been negative x3. Consultation to cardiology. Morphine, nitroglycerin as needed Echocardiogram from 01/10/2021 showed normal left ventricular systolic function, normal left ventricular segmental wall motion, ejection fraction 6065%. He had left heart catheterization on 01/10/2021 that showed no significant coronary disease but vasospastic angina. Will provide basal/prandial insulin per his home regimen Resume home medications FEN - Cardiac diet PPX - Heparin FULL CODE Dispo - inpatient for above History of Present Illness History of Present Illness Patient is a 55-year-old male with past medical history DM2, vasospastic angina, who presents to the ED with complaints of chest pain since last night. States his pain felt more like chest pressure. He reports history of NSTEMI and was diagnosed with vasospastic angina. He took his home daily nitrate without improvement. Labs in the ED showed sodium 132, potassium 5.7, platelet 96, CBG 637, troponins were negative x3. Aspirin, morphine, insulin received in the ER. At the time of my evaluation he still complains of chest pressure. 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 Will admit patient for further medical management. 03/28/2021: Afebrile, no acute vents overnight. Per cardiology, symptoms secondary to known history of vasospastic angina. Recent cardiac catheterization 01/10/2021 did not show any significant coronary artery disease. Right heart catheterization at that time did not show any significant pulmonary hypertension or intracardiac shunt. Recent 2D echo showed LVEF 60 to 65%. Increase Imdur to 60 mg daily to optimize therapy. Being treated with pyridostigmine for orthostatic hypotension, and discussed nonpharmacological means of combating this as well. Recommend follow-up with PCP within 1 week. Greater than 30 minutes spent managing the discharge of this patient. Vitals/I&O Vitals/I&O: Vital Signs Date Time Temp Pulse Resp B/P (MAP) Pulse Ox O2 Delivery O2 Flow Rate FiO2 03/28/21 09:02 63 138/74 03/28/21 07:00 98.0 18 93 Room Air 98.0 03/27/21 19:00 2.0 I & O 03/27/21 03/27/21 03/28/21 15:00 23:00 07:00 Intake Total 180 ml 1300 ml 200 ml Output Total 1000 ml Balance 180 ml 1300 ml -800 ml Physical Exam General: Alert, Oriented X3 Heart: Regular rate Lungs: Clear Abdomen: Soft, No tenderness Extremities: No cyanosis, No edema Skin: No rashes, No breakdown Labs Labs: Laboratory Tests Test 03/27/21 12:15 03/27/21 17:07 03/27/21 20:07 03/28/21 06:25 Glucose (Fingerstick) 181 mg/dL (70-99) 193 mg/dL (70-99) 256 mg/dL (70-99) White Blood Count 8.4 x10^3/uL (4.0-11.0) Red Blood Count 5.36 x10^6/uL (4.30-5.70) Hemoglobin 16.5 g/dL (13.0-17.5) Hematocrit 49.1 % (39.0-53.0) Mean Corpuscular Volume 92 fL (79-100) Mean Corpuscular Hemoglobin 31 pg (25-35) Mean Corpuscular Hemoglobin Concent 34 g/dL (31-37) Red Cell Distribution Width 15.3 % (11.5-14.5) Platelet Count 91 x10^3/uL (140-400) Sodium Level 141 mmol/L (136-145) Potassium Level 4.0 mmol/L (3.5-5.1) Chloride Level 108 mmol/L (98-107) Carbon Dioxide Level 25 mmol/L (21-32) Anion Gap 8 (6-14) Blood Urea Nitrogen 19 mg/dL (8-26) Creatinine 1.4 mg/dL (0.7-1.3) Estimated GFR (Cockcroft-Gault) 52.4 Glucose Level 184 mg/dL (70-99) Calcium Level 8.5 mg/dL (8.5-10.1) Test 03/28/21 07:22 Glucose (Fingerstick) 193 mg/dL (70-99) Assessment and Plan Assessmemt and Plan Problems Medical Problems: (1) Chest pain Status: Acute (2) Hyperglycemia Status: Acute Comment Review of Relevant I have reviewed the following items jabari (where applicable) has been applied. Medications: Current Medications Medications (Trade) Dose Ordered Sig/Christa Route PRN Reason Start Time Stop Time Status Last Admin Dose Admin Insulin Glargine (Lantus Syringe) 80 unit QHS SQ 03/27/21 21:00 03/27/21 21:47 Morphine Sulfate (Morphine Sulfate) 2 mg PRN Q1HR PRN IV PAIN 03/27/21 09:45 03/27/21 17:44 Acetaminophen/ Hydrocodone Bitart (Lortab 5/325) 1 tab PRN Q4HRS PRN PO MILD PAIN 1-3 03/27/21 09:45 03/27/21 12:48 Heparin Sodium (Porcine) (Heparin Sodium) 5,000 unit Q8HRS SQ 03/27/21 14:00 03/28/21 06:14 Aspirin (Aspirin Chewable) 81 mg DAILY PO 03/27/21 11:00 03/28/21 09:02 Atorvastatin Calcium (Lipitor) 10 mg QHS PO 03/27/21 21:00 03/27/21 21:34 Isosorbide Mononitrate (Imdur) 30 mg DAILY PO 03/27/21 11:00 03/28/21 09:02 Levothyroxine Sodium (Synthroid) 125 mcg DAILY06 PO 03/27/21 11:00 03/28/21 06:17 Mirtazapine (Remeron) 7.5 mg QHS PO 03/27/21 21:00 03/27/21 21:34 Pregabalin (Lyrica) 75 mg BID PO 03/27/21 11:00 03/28/21 09:02 Desvenlafaxine Succinate (Pristiq Er) 100 mg DAILY PO 03/27/21 11:00 03/28/21 09:02 Diazepam (Valium) 10 mg BID PO 03/27/21 11:00 03/28/21 09:02 Pantoprazole Sodium (Protonix) 40 mg DAILYAC PO 03/27/21 11:00 03/28/21 06:16 Insulin Human Lispro (HumaLOG) 60 units TIDWMEALS SQ 03/27/21 12:00 03/28/21 09:09 Nicotine (Nicoderm Cq 21mg) 1 patch DAILY TD 03/27/21 14:00 03/28/21 09:03 Justifications for Admission Other Justification YVROSE APONTE MD Mar 28, 2021 09:22
--- NOTE | 2021-03-28 09:24 | PDOC3 ---
Discharge Summary Visit Information Date of Admission: Mar 27, 2021 Date of Discharge: Mar 28, 2021 Final Diagnosis Problems Medical Problems: (1) Chest pain Status: Acute (2) Hyperglycemia Status: Acute Brief Hospital Course Allergies Allergies Coded Allergies Type Severity Reaction Last Updated Verified ascorbic acid Allergy Intermediate Swelling 03/27/21 Yes codeine Allergy Intermediate hives 01/03/21 Yes ketorolac Allergy Intermediate swelling 01/03/21 Yes ciprofloxacin Allergy Unknown 01/10/21 Yes Vital Signs Vital Signs Date Time Temp Pulse Resp B/P (MAP) Pulse Ox O2 Delivery O2 Flow Rate FiO2 03/28/21 09:02 63 138/74 03/28/21 07:00 98.0 18 93 Room Air 98.0 03/27/21 19:00 2.0 Lab Results Laboratory Tests Test 03/27/21 00:10 03/27/21 02:11 03/27/21 05:15 03/27/21 08:10 White Blood Count 9.5 x10^3/uL (4.0-11.0) Red Blood Count 5.49 x10^6/uL (4.30-5.70) Hemoglobin 16.8 g/dL (13.0-17.5) Hematocrit 50.8 % (39.0-53.0) Mean Corpuscular Volume 93 fL (79-100) Mean Corpuscular Hemoglobin 31 pg (25-35) Mean Corpuscular Hemoglobin Concent 33 g/dL (31-37) Red Cell Distribution Width 15.2 % (11.5-14.5) Platelet Count 96 x10^3/uL (140-400) Neutrophils (%) (Auto) 82 % (31-73) Lymphocytes (%) (Auto) 12 % (24-48) Monocytes (%) (Auto) 6 % (0-9) Eosinophils (%) (Auto) 0 % (0-3) Basophils (%) (Auto) 1 % (0-3) Neutrophils # (Auto) 7.8 x10^3/uL (1.8-7.7) Lymphocytes # (Auto) 1.1 x10^3/uL (1.0-4.8) Monocytes # (Auto) 0.5 x10^3/uL (0.0-1.1) Eosinophils # (Auto) 0.0 x10^3/uL (0.0-0.7) Basophils # (Auto) 0.0 x10^3/uL (0.0-0.2) Sodium Level 132 mmol/L (136-145) Potassium Level 5.7 mmol/L (3.5-5.1) Chloride Level 99 mmol/L (98-107) Carbon Dioxide Level 23 mmol/L (21-32) Anion Gap 10 (6-14) Blood Urea Nitrogen 20 mg/dL (8-26) Creatinine 1.6 mg/dL (0.7-1.3) Estimated GFR (Cockcroft-Gault) 44.9 Glucose Level 637 mg/dL (70-99) Calcium Level 9.0 mg/dL (8.5-10.1) Troponin I Quantitative < 0.017 ng/mL (0.000-0.055) < 0.017 ng/mL (0.000-0.055) < 0.017 ng/mL (0.000-0.055) Glucose (Fingerstick) 507 mg/dL (70-99) Test 03/27/21 08:22 03/27/21 12:15 03/27/21 17:07 03/27/21 20:07 Glucose (Fingerstick) 282 mg/dL (70-99) 181 mg/dL (70-99) 193 mg/dL (70-99) 256 mg/dL (70-99) Test 03/28/21 06:25 03/28/21 07:22 White Blood Count 8.4 x10^3/uL (4.0-11.0) Red Blood Count 5.36 x10^6/uL (4.30-5.70) Hemoglobin 16.5 g/dL (13.0-17.5) Hematocrit 49.1 % (39.0-53.0) Mean Corpuscular Volume 92 fL (79-100) Mean Corpuscular Hemoglobin 31 pg (25-35) Mean Corpuscular Hemoglobin Concent 34 g/dL (31-37) Red Cell Distribution Width 15.3 % (11.5-14.5) Platelet Count 91 x10^3/uL (140-400) Sodium Level 141 mmol/L (136-145) Potassium Level 4.0 mmol/L (3.5-5.1) Chloride Level 108 mmol/L (98-107) Carbon Dioxide Level 25 mmol/L (21-32) Anion Gap 8 (6-14) Blood Urea Nitrogen 19 mg/dL (8-26) Creatinine 1.4 mg/dL (0.7-1.3) Estimated GFR (Cockcroft-Gault) 52.4 Glucose Level 184 mg/dL (70-99) Calcium Level 8.5 mg/dL (8.5-10.1) Glucose (Fingerstick) 193 mg/dL (70-99) Laboratory Tests Test 03/27/21 12:15 03/27/21 17:07 03/27/21 20:07 03/28/21 06:25 Glucose (Fingerstick) 181 mg/dL (70-99) 193 mg/dL (70-99) 256 mg/dL (70-99) White Blood Count 8.4 x10^3/uL (4.0-11.0) Red Blood Count 5.36 x10^6/uL (4.30-5.70) Hemoglobin 16.5 g/dL (13.0-17.5) Hematocrit 49.1 % (39.0-53.0) Mean Corpuscular Volume 92 fL (79-100) Mean Corpuscular Hemoglobin 31 pg (25-35) Mean Corpuscular Hemoglobin Concent 34 g/dL (31-37) Red Cell Distribution Width 15.3 % (11.5-14.5) Platelet Count 91 x10^3/uL (140-400) Sodium Level 141 mmol/L (136-145) Potassium Level 4.0 mmol/L (3.5-5.1) Chloride Level 108 mmol/L (98-107) Carbon Dioxide Level 25 mmol/L (21-32) Anion Gap 8 (6-14) Blood Urea Nitrogen 19 mg/dL (8-26) Creatinine 1.4 mg/dL (0.7-1.3) Estimated GFR (Cockcroft-Gault) 52.4 Glucose Level 184 mg/dL (70-99) Calcium Level 8.5 mg/dL (8.5-10.1) Test 03/28/21 07:22 Glucose (Fingerstick) 193 mg/dL (70-99) Brief Hospital Course Mr. Szymanski is a 55 old male who presented with chest pain due to vasospastic angina. Consultation was placed to cardiology. Per cardiology, symptoms secondary to known history of vasospastic angina. Recent cardiac ca theterization 01/10/2021 did not show any significant coronary artery disease. Right heart catheterization at that time did not show any significant pulmonary hypertension or intracardiac shunt. Recent 2D echo showed LVEF 60 to 65%. Increase Imdur to 60 mg daily to optimize therapy. Being treated with pyridostigmine for orthostatic hypotension, and discussed nonpharmacological m eans of combating this as well. Recommend follow-up with PCP within 1 week. Discharge Information Condition at Discharge: Stable Follow Up: Weeks Disposition/Orders: D/C to Home Scheduled Aspirin (Aspirin) 81 Mg Tab.chew, 1 TAB PO DAILY for angina for 30 Days, #30 Ref 3 Prescribed by: YIN ULRICH on 01/04/211617 Last Action: Continued on 03/27/21949 by YVROSE APONTE MD Atorvastatin Calcium (Atorvastatin Calcium) 10 Mg Tablet, 1 TAB PO QHS for cholesterol, (Reported) Entered as Reported by: LETICIA LEONARDO RN on 03/27/21241 Last Action: Continued on 03/27/21949 by YVROSE APONTE MD Desvenlafaxine Succinate (Desvenlafaxine Succinate ER) 100 Mg Tab.er.24h, 1 TAB PO DAILY for depression, (Reported) Entered as Reported by: GEO WALSH on 01/03/21841 Last Action: Converted on 03/27/21949 by YVROSE APONTE MD Diazepam (Diazepam) 10 Mg Tablet, 1 TAB PO BID for , (Reported) Entered as Reported by: LETICIA LEONARDO RN on 03/27/21241 Last Action: Converted on 03/27/21949 by YVROSE APONTE MD Galcanezumab-Gnlm (Emgality) 120 Mg/1 Ml Pen.injctr, 1 ML SQ Q4WK for , (Reported) Entered as Reported by: LETICIA LEONARDO RN on 03/27/21241 Last Action: New Order on 03/27/21241 by LETICIA LEONARDO RN Insulin Aspart (Insulin Aspart Flexpen) 100 Unit/1 Ml Insuln.pen, 28 UNITS SQ TIDAC for DM, (Reported) Entered as Reported by: GEO WALSH on 01/03/21841 Last Action: Converted on 03/27/21329 by LETICIA LEONARDO RN Insulin Detemir (Levemir Flextouch) 100 Unit/1 Ml Insuln.pen, 80 UNITS SQ QHS for DM, (Reported) Entered as Reported by: GEO WALSH on 01/03/21841 Last Action: Converted on 03/27/21329 by LETICIA LEONARDO RN Isosorbide Mononitrate (Isosorbide Mononitrate Er) 30 Mg Tab.er.24h, 1 TAB PO DAILY for , (Reported) Entered as Reported by: LETICIA LEONARDO RN on 03/27/21241 Last Action: Continued on 03/27/21949 by YVROSE APONTE MD Levothyroxine Sodium (Levothyroxine Sodium) 125 Mcg Tablet, 125 MCG PO DAILY06 for THYROID SUPPLEMENT, #30 Ref 0 (Reported) Entered as Reported by: GEO WALSH on 01/03/21843 Last Action: Continued on 03/27/21949 by YVROSE APONTE MD Mirtazapine (Mirtazapine) 7.5 Mg Tablet, 1 TAB PO QHS for insomnia, (Reported) Entered as Reported by: GEO WALSH on 01/03/21841 Last Action: Continued on 03/27/21949 by YVROSE APONTE MD Omeprazole (Omeprazole) 40 Mg Capsule.dr, 40 MG PO DAILY for , (Reported) Entered as Reported by: LETICIA LEONARDO RN on 03/27/21241 Last Action: Converted on 03/27/21949 by YVROSE APONTE MD Potassium Chloride (Klor-Con M20) 20 Meq Tab.er.prt, 20 MEQ PO DAILY for , (Reported) Entered as Reported by: LETICIA LEONARDO RN on 03/27/21241 Last Action: New Order on 03/27/21241 by LETICIA LEONARDO RN Pregabalin (Pregabalin) 75 Mg Capsule, 1 CAP PO BID for neuropathy, (Reported) Entered as Reported by: GEO WALSH on 01/03/21841 Last Action: Continued on 03/27/21949 by YVROSE APONTE MD Pyridostigmine [place] (Pyridostigmine [place]) 60 Mg Tablet, 1 TAB PO TID for , (Reported) Entered as Reported by: LETICIA LEONARDO RN on 03/27/21241 Last Action: New Order on 03/27/21241 by LETICIA LEONARDO RN Sumatriptan (Sumatriptan) 20 Mg [place], Unknown Dose NS DAILY for , (Reported) Entered as Reported by: LETICIA LEONARDO RN on 03/27/21241 Last Taken: UNKNOWN on Unknown Date & Time Last Action: New Order on 03/27/21241 by LETICIA LEONARDO RN Scheduled PRN Rizatriptan Benzoate (Rizatriptan) 10 Mg Tablet, 1 TAB PO PRN DAILY PRN for MIGRAINE HEADACHE, (Reported) Entered as Reported by: LETICIA LEONARDO RN on 03/27/21241 Last Action: Converted on 03/27/21949 by YVROSE APONTE MD Justicifation of Admission Dx: Justifications for Admission: Justification of Admission Dx: Yes YVROSE APONTE MD Mar 28, 2021 09:24
--- NOTE | 2021-03-28 10:52 | NUR ---
SS following up with discharge planning. SS reviewed pt chart and discussed with pt RN. Pt is currently on room air Discharge order on the chart for home with self care.
--- NOTE | 2021-03-28 11:39 | NUR ---
Discharge Note: ERIC MCCOY Discharge instructions and discharge home medications reviewed with Patient and a copy given. All questions have been answered and understanding verbalized. The following instructions and handouts were given: DISCHARGE INSTRUCTIONS, NEW DOSE OF IMDUR, ACTIVITY INSTRUCTIONS Discontinued lines and drains: Peripheral IV intact. Patient discharged to Home or Self Care with Significant Other via Wheelchair
== END 2021-03-28 11:50 | disposition home or self-care (01) | DRG 303 ==
LOC: ER 22:52 → 2 NORTH 03-27 00:47
PROVIDERS: ADMIT Internal Medicine; ATTEND Internal Medicine
DX: I25.119 Atherosclerotic heart disease of native coronary artery with unspecified angina pectoris (principal); E87.1 Hypo-osmolality and hyponatremia; E11.65 Type 2 diabetes mellitus with hyperglycemia; I95.1 Orthostatic hypotension; E03.9 Hypothyroidism, unspecified; E78.5 Hyperlipidemia, unspecified; E87.5 Hyperkalemia; I25.2 Old myocardial infarction; F17.210 Nicotine dependence, cigarettes, uncomplicated; I10 Essential (primary) hypertension; Z82.3 Family history of stroke; Z83.3 Family history of diabetes mellitus; Z87.442 Personal history of urinary calculi; Z88.8 Allergy status to other drugs, medicaments and biological substances; Z79.899 Other long term (current) drug therapy; Z90.49 Acquired absence of other specified parts of digestive tract
CPT/HCPCS: 36415; 71045; 80048; 82962; 84484; 85025; 85027; 96361; 96374; 96376; J1644; J1815; J2270; J7030; 97116-GP; 97535-GO; 99285-25; G0378

== ENCOUNTER 2021-04-04 12:54 | Emergency (ER) | payer MEDICARE, MEDICAID ==
[~2021-04-04] VITALS: Ht 182.9 cm; Wt 125.5 kg
[~2021-04-04 12:54] MED LIST changes: +ATOR10TA60 PO; +DIAZ10TA5 PO; +GALC120P SQ; +ISOS30TA68 PO; +ISOS60TA55 PO; +OMEP40CA7 PO; +POTA20TA4 PO; +PYRI60TA PO; +RIZA10TA7 PO; +SUMA20SP2 NS
[2021-04-04 13:33] LABS: BASO # 0.1 x10^3/uL (0.0-0.2); BASO % 1 % (0-3); EOS # 0.2 x10^3/uL (0.0-0.7); EOS % 2 % (0-3); HEMATOCRIT 47.9 % (39.0-53.0); HEMOGLOBIN 16.2 g/dL (13.0-17.5); LYMPH # 2.1 x10^3/uL (1.0-4.8); LYMPH % 25 % (24-48); MEAN CORPUSCULAR HEMOGLOBIN 31 pg (25-35); MEAN CORPUSCULAR HGB CONC 34 g/dL (31-37); MEAN CORPUSCULAR VOLUME 92 fL (79-100); MONO # 0.6 x10^3/uL (0.0-1.1); MONO % 7 % (0-9); NEUT # 5.5 x10^3/uL (1.8-7.7); NEUT % 65 % (31-73); PLATELET COUNT 121 x10^3/uL (140-400); RED BLOOD COUNT 5.19 x10^6/uL (4.30-5.70); RED CELL DISTRIBUTION WIDTH 15.5 % (11.5-14.5); WHITE BLOOD COUNT 8.4 x10^3/uL (4.0-11.0)
--- NOTE | 2021-04-04 13:38 | RAD ---
EXAM: CHEST 1 VIEW History: Chest pain COMPARISON: 03/26/2021 TECHNIQUE: Single portable radiograph of the chest FINDINGS: Mild cardiomegaly. Mild bibasilar lung airspace opacities likely atelectasis or infiltrate s. The costophrenic sulci are clear and well demarcated. IMPRESSION: Mild bibasilar lung atelectasis or infiltrates. Electronically signed by: Cruz Buitrago MD (04/04/2021 1:36 PM) [id number]
[2021-04-04 13:48] LABS: CALCIUM 8.7 mg/dL (8.5-10.1); CREATININE 1.3 mg/dL (0.7-1.3); GFR 57.1; POTASSIUM 4.7 mmol/L (3.5-5.1)
[2021-04-04 13:54] LABS: ALBUMIN 3.3 g/dL (3.4-5.0); ALBUMIN/GLOBULIN RATIO 0.9 (1.0-1.7); MAGNESIUM 1.9 mg/dL (1.8-2.4); TOTAL BILIRUBIN 0.7 mg/dL (0.2-1.0)
[2021-04-04 14:05] LABS: PLT ESTIMATE DECREASED (ADEQUATE)
[2021-04-04] MEDS ORDERED: MORPHINE SULFATE 4 MG/ML VIAL. IV ONE (15:00)
[2021-04-04] MEDS ORDERED: IOHEXOL 350 MG/ML 100 ML VIAL. IV ONE (15:15)
[2021-04-04] MEDS ORDERED: CONTRAST GIVEN. MC PRN (15:15)
--- NOTE | 2021-04-04 16:12 | PHYS DOC ---
Past Medical History Past Medical History: Diabetes-Type II, Hypertension, Kidney Stone, [place], Pancreatitis Additional Past Medical Histor: "mi 2016", vascular spasms Past Surgical History: Other Additional Past Surgical Histo: Stents for kidney stones, lithotripsy x9, PTCA Smoking Status: Current Every Day Smoker Additional Information: 1 ppd Alcohol Use: Rarely Drug Use: Marijuana General Adult EDM: Chief Complaint: CHEST PAIN HPI: HPI: Patient is a 55 year old male who presented to ER for evaluation of epigastric chest pain started several hours ago today. Patient denies any radiation of pain anywhere. Patient denies any cough or fever. Patient denies any nausea vomiting. Patient was admitted here last week for chest pain, work-up did not show any acute problem. Patient was also admitted here in December 2020, had n ormal echo, had normal cardiac catheterization. Review of Systems: Review of Systems: Constitutional: Denies fever or chills. [] Eyes: Denies change in visual acuity. [] HENT: Denies nasal congestion or sore throat. [] Respiratory: Denies cough or shortness of breath. [] Cardiovascular: Positive for chest pain, no edema. GI: Denies abdominal pain, nausea, vomiting, bloody stools or diarrhea. [] : Denies dysuria. [] Musculoskeletal: Denies back pain or joint pain. [] Integument: Denies rash. [] Neurologic: Denies headache, focal weakness or sensory changes. [] Endocrine: Denies polyuria or polydipsia. [] Lymphatic: Denies swollen glands. [] Psychiatric: Denies depression or anxiety. [] Heart Score: C/O Chest Pain: Yes HEART Score for Chest Pain: HEART Score for Chest Pain Response (Comments) Value History Slighlty/Non-Suspicious 0 ECG Normal 0 Age >45 - < 65 1 Risk Factors 1 or 2 Risk Factors 1 Troponin < Normal Limit 0 Total 2 Risk Factors: Risk Factors: DM, Current or recent (<one month) smoker, HTN, HLP, family history of CAD, obesity. Risk Scores: Score 0 - 3: 2.5% MACE over next 6 weeks - Discharge Home Score 4 - 6: 20.3% MACE over next 6 weeks - Admit for Clinical Observation Score 7 - 10: 72.7% MACE over next 6 weeks - Early Invasive Strategies Current Medications: Current Medications Medications (Trade) Dose Ordered Sig/Christa Start Time Stop Time Status Last Admin Dose Admin Info (CONTRAST GIVEN -- Rx MONITORING) 1 each PRN DAILY PRN 04/04/21 15:15 04/06/21 15:14 Iohexol (Omnipaque 350 Mg/ml) 95 ml 1X ONCE 04/04/21 15:15 04/04/21 15:16 DC 04/04/21 16:10 95 ML Morphine Sulfate (Morphine Sulfate) 4 mg 1X ONCE 04/04/21 15:00 04/04/21 15:01 DC 04/04/21 15:20 4 MG Allergies: Allergies: Allergies Coded Allergies Type Severity Reaction Last Updated Verified ascorbic acid Allergy Intermediate itching 04/04/21 Yes ciprofloxacin Allergy Intermediate hives 04/04/21 Yes codeine Allergy Intermediate hives 04/04/21 Yes ketorolac Allergy Intermediate swelling 04/04/21 Yes Physical Exam: PE: Constitutional: Well developed, well nourished, no acute distress, non-toxic appearance. [] HENT: Normocephalic, atraumatic, bilateral external ears normal, oropharynx moist, no oral exudates, nose normal. [] Eyes: PERRLA, EOMI, conjunctiva normal, no discharge. [] Neck: Normal range of motion, no tenderness, supple, no stridor. [] Cardiovascular:Heart rate regular rhythm, no murmur [] Lungs & Thorax: Bilateral breath sounds clear to auscultation [] Abdomen: Bowel sounds normal, soft, no tenderness, no masses, no pulsatile masses. [] Skin: Warm, dry, no erythema, no rash. [] Back: No tenderness, no CVA tenderness. [] Extremities: No tenderness, no cyanosis, no clubbing, ROM intact, no edema. [] Neurologic: Alert and oriented X 3, normal motor function, normal sensory function, no focal deficits noted. [] Psychologic: Affect normal, judgement normal, mood normal. [] Current Patient Data: Labs: Laboratory Tests Test 04/04/21 13:25 White Blood Count 8.4 x10^3/uL (4.0-11.0) Red Blood Count 5.19 x10^6/uL (4.30-5.70) Hemoglobin 16.2 g/dL (13.0-17.5) Hematocrit 47.9 % (39.0-53.0) Mean Corpuscular Volume 92 fL (79-100) Mean Corpuscular Hemoglobin 31 pg (25-35) Mean Corpuscular Hemoglobin Concent 34 g/dL (31-37) Red Cell Distribution Width 15.5 % (11.5-14.5) H Platelet Count 121 x10^3/uL (140-400) L Neutrophils (%) (Auto) 65 % (31-73) Lymphocytes (%) (Auto) 25 % (24-48) Monocytes (%) (Auto) 7 % (0-9) Eosinophils (%) (Auto) 2 % (0-3) Basophils (%) (Auto) 1 % (0-3) Neutrophils # (Auto) 5.5 x10^3/uL (1.8-7.7) Lymphocytes # (Auto) 2.1 x10^3/uL (1.0-4.8) Monocytes # (Auto) 0.6 x10^3/uL (0.0-1.1) Eosinophils # (Auto) 0.2 x10^3/uL (0.0-0.7) Basophils # (Auto) 0.1 x10^3/uL (0.0-0.2) Platelet Estimate Decreased (ADEQUATE) Giant Platelets Occ Sodium Level 135 mmol/L (136-145) L Potassium Level 4.7 mmol/L (3.5-5.1) Chloride Level 102 mmol/L (98-107) Carbon Dioxide Level 20 mmol/L (21-32) L Anion Gap 13 (6-14) Blood Urea Nitrogen 13 mg/dL (8-26) Creatinine 1.3 mg/dL (0.7-1.3) Estimated GFR (Cockcroft-Gault) 57.1 BUN/Creatinine Ratio 10 (6-20) Glucose Level 377 mg/dL (70-99) H Calcium Level 8.7 mg/dL (8.5-10.1) Magnesium Level 1.9 mg/dL (1.8-2.4) Total Bilirubin 0.7 mg/dL (0.2-1.0) Aspartate Amino Transferase (AST) 64 U/L (15-37) H Alanine Aminotransferase (ALT) 84 U/L (16-63) H Alkaline Phosphatase 286 U/L (46-116) H Troponin I Quantitative < 0.017 ng/mL (0.000-0.055) WS-Mnf-Y-Type Natriuretic Peptide 13 pg/mL (0-124) Total Protein 7.0 g/dL (6.4-8.2) Albumin 3.3 g/dL (3.4-5.0) L Albumin/Globulin Ratio 0.9 (1.0-1.7) L Lipase 101 U/L (73-393) Laboratory Tests 04/04/21 13:25 Laboratory Tests 04/04/21 13:25 Vital Signs: Vital Signs Date Time Temp Pulse Resp B/P (MAP) Pulse Ox O2 Delivery O2 Flow Rate FiO2 04/04/21 15:20 24 96 Room Air 04/04/21 15:00 80 134/78 (96) 04/04/21 13:00 97.8 97.8 EKG: EKG: EKG was done at 1259, heart rate of 74 bpm, sinus rhythm, no ST segment elevation. Normal axis. Radiology/Procedures: Radiology/Procedures: [][facility] [address] [place] [address] IMAGING REPORT Signed PATIENT: ERIC MCCOY ACCOUNT: [id number] : 1965 LOCATION: ER AGE: 55 SEX: M EXAM STATUS: REG ER ORD. PHYSICIAN: TONY GRANDE DO REASON: chest pain, soa PROCEDURE: CT ANGIOGRAPHY CHEST Site ID: [id number] EXAMINATION: CTA chest. Technique: Axial images with coronal and sagittal reconstructions with MIP technique are performed of chest with angiogram protocol. 95 MLO of Omnipaque 350 administered intravenously. One or more of the following radiation dose reduction techniques was used: automated exposure control, adjustment of mA and/or KV according to patient size, and/or utilization of iterative reconstruction technique. HISTORY: 55 years Male Reason: chest pain, soa COMPARISON: None. FINDINGS: The pulmonary arteries demonstrate good contrast opacification with no filling defects to suggest pulmonary embolism. The the thoracic aorta is normal in caliber. There is no dissection. There are from calcified lymph nodes in the mediastinum and the left hilum compatible with the prior granulomatous process. There are no significantly enlarged lymph nodes otherwise in the mediastinum, nathalia or axilla. The heart size is normal. No pericardial or pleural effusion. The lungs demonstrate minimal atelectasis in the bases. No significant consolidation, mass or suspicious nodule is seen otherwise. There is thickening in the distal esophagus which could relate to esophagitis. Sections of the upper abdomen demonstrate hepatic steatosis. The osseous structures demonstrate the multilevel mild osteophyte formation. IMPRESSION: 1. No PE or dissection. 2. Thickening in the distal esophagus could relate to esophagitis. Endoscopic evaluation is recommended to better evaluate. No discrete mass is identified. 3. Hepatic steatosis.. Electronically signed by: Scottie Huynh MD (04/04/2021 4:24 PM) [id number] DICTATED and SIGNED BY: SCOTTIE HUYNH MD DATE: 04/04/21 [id number] 0 Course & Med Decision Making: Course & Med Decision Making Pertinent Labs and Imaging studies reviewed. (See chart for details) Patient is a 55-year-old male who presented to ER due to epigastric chest pain started earlier today. Patient has been evaluated here multiple times recently for the same problem, EKG and cardiac enzyme came back normal so far. CT scan of the chest show no evidence of PE or dissection, it showed that he has some inflammation in the distal esophagus area may contribute to his epigastric chest pain. Patient had a normal echo recently, he also had a normal cardiac catheterization in December 2020. Patient will be discharged home, he will be given prescription for Carafate and Prilosec. Patient was advised to call his family physician for a referral to GI specialist for an upper GI study or an EGD. Patient was amenable to plan of care. Qing Disclaimer: Qing Disclaimer: This electronic medical record was generated, in whole or in part, using a voice recognition dictation system. Departure Departure Impression: Primary Impression: Chest pain Additional Impression: Esophagitis Disposition: HOME / SELF CARE / HOMELESS Condition: IMPROVED Referrals: AUGIE CHACKO MD (PCP) Follow up with your doctor for a referral to GI specialist for outpatient follow up next week. Patient Instructions: Chest Pain (Nonspecific), Esophagitis Additional Instructions: Thank you for visiting our Emergency Department. We appreciate you trusting us with your care. If any additional problems come up don't hesitate to return to visit us. Please follow up with your primary care provider so they can plan additional care if needed and know about the problem that you had. If symptoms worsen come back to the Emergency Department. Any concerning symptoms that start such as chest pain, shortness of air, weakness or numbness on one side of the body, running high fevers or any other concerning symptoms return to the ER. Scripts Omeprazole Magnesium (PRILOSEC OTC) 20 Mg Tablet. 20 MG PO DAILY for 30 Days, #30 TAB Prov: TONY GRANDE DO 04/04/21 Sucralfate (CARAFATE) 1 Gm Tablet 1 TAB PO QID for 30 Days, #120 TAB 0 Refills Prov: TONY GRANDE DO 04/04/21 TONY GRANDE DO Apr 04, 2021 16:12
--- NOTE | 2021-04-04 16:27 | RAD ---
Site ID: [id number] EXAMINATION: CTA chest. Technique: Axial images with coronal and sagittal reconstructions with MIP technique are performed of chest with angiogram protocol. 95 MLO of Omnipaque 350 administered intravenously. One or more of the following radiation dose reduction techniques was used: automated exposure control , adjustment of mA and/or KV according to patient size, and/or utilization of iterative reconstructio n technique. HISTORY: 55 years Male Reason: chest pain, soa COMPARISON: None. FINDINGS: The pulmonary arteries demonstrate good contrast opacification with no filling defects to suggest pul monary embolism. The the thoracic aorta is normal in caliber. There is no dissection. There are from calcified lymph nodes in the mediastinum and the left hilum compatible with the prior granulomatous process. There are no significantly enlarged lymph nodes otherwise in the mediastinum, nathalia or axilla. The heart size is normal. No pericardial or pleural effusion. The lungs demonstrate minimal atelectasis in the bases. No significant consolidation, mass or suspici ous nodule is seen otherwise. There is thickening in the distal esophagus which could relate to esophagitis. Sections of the upper abdomen demonstrate hepatic steatosis. The osseous structures demonstrate the multilevel mild osteoph yte formation. IMPRESSION: 1. No PE or dissection. 2. Thickening in the distal esophagus could relate to esophagitis. Endoscopic evaluation is recommend ed to better evaluate. No discrete mass is identified. 3. Hepatic steatosis.. Electronically signed by: Jose Luis Huynh MD (04/04/2021 4:24 PM) [id number]
[2021-04-04] MEDS ORDERED: LIDO:MAALOX 1:1 20 ML SINGLE DOSE. SWSW ONE (16:45)
[2021-04-04 16:46] VITALS: BP 156/77
[2021-04-04] MEDS ORDERED: SUCR1TAB35 PO (16:51)
[2021-04-04] MEDS ORDERED: OMEP20TA63 PO (16:51)
--- NOTE | 2021-04-04 17:00 | EKG ---
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
--- NOTE | 2021-04-04 17:01 | EKG ---
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
== END 2021-04-04 17:04 | disposition home or self-care (01) ==
LOC: ER 12:54
DX: K20.90 Esophagitis, unspecified without bleeding (principal); R07.89 Other chest pain; E11.9 Type 2 diabetes mellitus without complications; I10 Essential (primary) hypertension; I25.2 Old myocardial infarction; F17.200 Nicotine dependence, unspecified, uncomplicated; Z87.442 Personal history of urinary calculi; Z88.8 Allergy status to other drugs, medicaments and biological substances; Z88.1 Allergy status to other antibiotic agents; Z88.5 Allergy status to narcotic agent
CPT/HCPCS: 36415; 71045; 71275; 80053; 83690; 83735; 83880; 84484; 85025; 93005; 96374; 99285; J2270; Q9967

== ENCOUNTER 2021-04-17 11:25 | Emergency (ER) | payer MEDICARE, MEDICAID ==
[~2021-04-17] VITALS: Ht 182.9 cm; Wt 125.0 kg
[~2021-04-17 11:25] MED LIST changes: +OMEP20TA63 PO; +SUCR1TAB35 PO
--- NOTE | 2021-04-17 11:43 | PHYS DOC ---
Past Medical History Past Medical History: Diabetes-Type II, Hypertension, Kidney Stone, [place], P ancreatitis Additional Past Medical Histor: "mi 2016", vascular spasms Past Surgical History: Other Additional Past Surgical Histo: Stents for kidney stones, lithotripsy x9, PTCA Smoking Status: Current Every Day Smoker Alcohol Use: Rarely Drug Use: Marijuana General Adult HPI: HPI: Patient is a 55 year old male with a history of diabetes type 2, hypertension, [place], pancreatitis, who presents to the ED today complaining of 8 out of 10 left- sided chest pain that began at 8 AM this morning. Patient states he has a sensation of something sitting on his chest. Patient denies anything sp ecifically relieving the pain. Denies anything exacerbating the pain. Patient states he has been seen in the ED multiple times for this pain and his work-ups are usually negative including a negative cardiac cath 01/10/2021 Review of Systems: Review of Systems: Constitutional: Denies fever or chills. [] Eyes: Denies change in visual acuity. [] HENT: Denies nasal congestion or sore throat. [] Respiratory: Denies cough or shortness of breath. [] Cardiovascular: Reports chest pain GI: Denies abdominal pain, nausea, vomiting, bloody stools or diarrhea. [] : Denies dysuria. [] Musculoskeletal: Denies back pain or joint pain. [] Integument: Denies rash. [] Neurologic: Denies headache, focal weakness or sensory changes. [] Psychiatric: Denies depression or anxiety. [] Heart Score: C/O Chest Pain: Yes HEART Score for Chest Pain: HEART Score for Chest Pain Response (Comments) Value History Slighlty/Non-Suspicious 0 ECG Normal 0 Age >45 - < 65 1 Risk Factors 1 or 2 Risk Factors 1 Troponin < Normal Limit 0 Total 2 Risk Factors: Risk Factors: DM, Current or recent (<one month) smoker, HTN, HLP, family history of CAD, obesity. Risk Scores: Score 0 - 3: 2.5% MACE over next 6 weeks - Discharge Home Score 4 - 6: 20.3% MACE over next 6 weeks - Admit for Clinical Observation Score 7 - 10: 72.7% MACE over next 6 weeks - Early Invasive Strategies Allergies: Allergies: Allergies Coded Allergies Type Severity Reaction Last Updated Verified ascorbic acid Allergy Intermediate itching 04/04/21 Yes ciprofloxacin Allergy Intermediate hives 04/04/21 Yes codeine Allergy Intermediate hives 04/04/21 Yes ketorolac Allergy Intermediate swelling 04/04/21 Yes Physical Exam: PE: Constitutional: Obese patient. Well developed, well nourished, no acute d istress, non-toxic appearance. [] HENT: Normocephalic, atraumatic, bilateral external ears normal, oropharynx moist, no oral exudates, nose normal. [] Eyes: PERRLA, EOMI, conjunctiva normal, no discharge. [] Neck: Normal range of motion, no tenderness, supple, no stridor. [] Cardiovascular:Heart rate regular rhythm, no murmur [] Lungs & Thorax: Bilateral breath sounds clear to auscultation [] Abdomen: Bowel sounds normal, soft, no tenderness, no masses, no pulsatile masses. [] Skin: Warm, dry, no erythema, no rash. [] Back: No tenderness, no CVA tenderness. [] Extremities: No tenderness, no cyanosis, no clubbing, ROM intact, no edema. [] Neurologic: Alert and oriented X 3, normal motor function, normal sensory function, no focal deficits noted. [] Psychologic: Affect normal, judgement normal, mood normal. [] EKG: EK interpreted by Dr. Slade sinus rhythm heart rate 83 no STEMI [] Radiology/Procedures: Radiology/Procedures: []PROCEDURE: PORTABLE CHEST 1V EXAMINATION: XR CHEST 1V CLINICAL HISTORY: Chest pain EXAM DATE/TIME: 04/17/2021 11:51 AM COMPARISON: 04/04/2021 FINDINGS: Lines, Tubes, and Devices: None. Cardiomediastinal Silhouette: Normal heart size. Aortic atherosclerotic calcification. Lungs and Pleura: No evidence of focal airspace consolidation or pleural effusion. Pulmonary vasculature unremarkable. Bones and Soft Tissues: Degenerative changes of the thoracic spine. IMPRESSION: No evidence of acute cardiopulmonary abnormality. Electronically signed by: Karthikeyan Oneal DO (04/17/2021 12:04 PM) [id number] DICTATED and SIGNED BY: KARTHIKEYAN ONEAL DO DATE: 04/17/21 [id number] 0 Course & Med Decision Making: Course & Med Decision Making Pertinent Labs and Imaging studies reviewed. (See chart for details) This is a 55-year-old male patient presented to the ED today complaining of left-sided chest pain that began at 8 AM. Patient has been worked up multiple times for this pain with nothing acute being found, he had a negative cardiac cath January 10, 2021. He is a smoker, he was encouraged to consider smoking cessation. CBC with no acute findings, CMP with glucose of 480, normal anion gap. Noted for elevated liver enzymes, this is chronic on this patient. Chest x-ray is negative, EKG is negative, 2 troponins done 3 hours apart are negative I spoke with Michael NURSES' AIDE for cardiology. He was able to get patient an appointment for May 15, 2021 at 9:15 AM. Patient was given insulin and IV fluids in the ED. Blood sugar be rechecked. Discharge to home. 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 Departure Departure Impression: Primary Impression: Chest pain Qualified Codes: R07.9 - Chest pain, unspecified Additional Impression: Diabetes mellitus with hyperglycemia Qualified Codes: E11.65 - Type 2 diabetes mellitus with hyperglycemia; Z79.4 - longterm (current) use of insulin Disposition: 01 HOME / SELF CARE / HOMELESS Condition: STABLE Referrals: AUGIE CHACKO MD (PCP) Follow-up next week PAUL ARELLANO MD Follow up 05/15/2021 at 9:15am Patient Instructions: Chest Pain (Nonspecific), [id number], Hyperglycemia, [id number] Additional Instructions: You were evaluated in the emergency room for chest pain. Your blood glucose is high. Ensure you are using your insulin. Please follow-up with your burnisher and bumper, cabin supervisor and primary care doctor. Come back to the ED at any point symptoms worsen PRAVEENA SOMMERS APRN Apr 17, 2021 11:43
[2021-04-17] MEDS ORDERED: NITROGLYCERIN SUBLINGUAL 0.4 MG BOTTLE OF 25. SL PRN (11:45)
[2021-04-17 11:49] LABS: BASO # 0.1 x10^3/uL (0.0-0.2); BASO % 1 % (0-3); EOS # 0.2 x10^3/uL (0.0-0.7); EOS % 3 % (0-3); HEMATOCRIT 45.5 % (39.0-53.0); HEMOGLOBIN 15.3 g/dL (13.0-17.5); LYMPH # 1.7 x10^3/uL (1.0-4.8); LYMPH % 26 % (24-48); MEAN CORPUSCULAR HEMOGLOBIN 31 pg (25-35); MEAN CORPUSCULAR HGB CONC 34 g/dL (31-37); MEAN CORPUSCULAR VOLUME 92 fL (79-100); MONO # 0.8 x10^3/uL (0.0-1.1); MONO % 11 % (0-9); NEUT % 60 % (31-73); PLATELET COUNT 81 x10^3/uL (140-400); RED BLOOD COUNT 4.95 x10^6/uL (4.30-5.70); RED CELL DISTRIBUTION WIDTH 15.3 % (11.5-14.5); WHITE BLOOD COUNT 6.7 x10^3/uL (4.0-11.0)
[2021-04-17] MEDS ORDERED: LIDO:MAALOX 1:1 20 ML SINGLE DOSE. SWSW ONE (12:00)
[2021-04-17] MEDS ORDERED: ASPIRIN 325 MG TABLET PO ONE (12:00)
--- NOTE | 2021-04-17 12:06 | RAD ---
EXAMINATION: XR CHEST 1V CLINICAL HISTORY: Chest pain EXAM DATE/TIME: 04/17/2021 11:51 AM COMPARISON: 04/04/2021 FINDINGS: Lines, Tubes, and Devices: None. Cardiomediastinal Silhouette: Normal heart size. Aortic atherosclerotic calcification. Lungs and Pleura: No evidence of focal airspace consolidation or pleural effusion. Pulmonary vasculat ure unremarkable. Bones and Soft Tissues: Degenerative changes of the thoracic spine. IMPRESSION: No evidence of acute cardiopulmonary abnormality. Electronically signed by: Karthikeyan Shannon DO (04/17/2021 12:04 PM) [id number]
[2021-04-17 12:10] LABS: CALCIUM 8.7 mg/dL (8.5-10.1); CREATININE 1.3 mg/dL (0.7-1.3); GFR 57.1; POTASSIUM 4.7 mmol/L (3.5-5.1)
[2021-04-17 12:14] LABS: ALBUMIN 3.3 g/dL (3.4-5.0); ALBUMIN/GLOBULIN RATIO 1.1 (1.0-1.7); MAGNESIUM 1.9 mg/dL (1.8-2.4); TOTAL BILIRUBIN 0.6 mg/dL (0.2-1.0); TOTAL PROTEIN 6.3 g/dL (6.4-8.2)
[2021-04-17 12:44] LABS: BILIRUBIN,URINE NEGATIVE (NEG); CLARITY,URINE CLEAR; COLOR,URINE YELLOW; NITRITE,URINE NEGATIVE (NEG); PH,URINE 6.5 (<5.0-8.0); PROTEIN,URINE NEGATIVE (NEG-TRACE); UROBILINOGEN,URINE 0.2 mg/dL (0.2 mg/dL)
[2021-04-17] MEDS ORDERED: INSULIN REGULAR 100 UNIT/ML 3ML VIAL. IV ONE (12:45)
[2021-04-17] MEDS ORDERED: IV NORMAL SALINE 1000ML BAG 1,000 ML IV ONE (12:45)
[2021-04-17 12:51] LABS: BARBITURATES NEG (NEG); BENZODIAZEPINES POS (NEG); CANNABINOIDS NEG (NEG); COCAINE NEG (NEG); METHADONE NEG (NEG); OPIATES NEG (NEG); PHENCYCLIDINE NEG (NEG)
[2021-04-17 12:53] LABS: AMPHETAMINE/METHAMPHETAMINE NEG (NEG)
[2021-04-17 12:59] LABS: BACTERIA,URINE 0 /HPF (0-FEW); RBC,URINE 0 /HPF (0-2); WBC,URINE 0 /HPF (0-4)
[2021-04-17 13:31] VITALS: BP 130/62
== END 2021-04-17 15:39 | disposition home or self-care (01) ==
LOC: ER 11:25
DX: R07.89 Other chest pain (principal); E11.65 Type 2 diabetes mellitus with hyperglycemia; I10 Essential (primary) hypertension; I25.2 Old myocardial infarction; F17.200 Nicotine dependence, unspecified, uncomplicated; Z87.442 Personal history of urinary calculi; Z79.4 Long term (current) use of insulin; Z88.1 Allergy status to other antibiotic agents; Z88.5 Allergy status to narcotic agent; Z88.8 Allergy status to other drugs, medicaments and biological substances
CPT/HCPCS: 36415; 71045; 80053; 80307; 81001; 83735; 83880; 84443; 84484; 85025; 93005; 96361; 96374; 99285; G0480; J1815; J7030

== ENCOUNTER → 2021-05-23 | Outpatient (CLI) | payer MEDICARE, MEDICAID ==
--- NOTE | 2021-05-23 15:23 | KCIC ---
EXAM: Brain MRI without contrast. HISTORY: Migraine. Dizziness. Frequent falls. TECHNIQUE: Multiplanar, multisequence magnetic resonance imaging of the brain was performed without c ontrast. COMPARISON: Head CT dated 10/08/2015. FINDINGS: There is no restricted diffusion to suggest acute or subacute infarction. There is no susce ptibility artifact to suggest hemorrhage. There is no mass effect or midline shift. There is no hydro cephalus. There are extensive scattered areas of signal change throughout the cerebral white matter. This is mo st commonly due to chronic small vessel disease, advanced for patient age. The orbits are unremarkabl e. There is mild paranasal sinus because of thickening. There is right greater than left mastoid fluid. There are normal flow voids within the cerebral vessels. There is no suspicious calvarial lesion. IMPRESSION: 1. No acute intracranial finding. 2. Bilateral cerebral white matter changes, most commonly due to chronic small vessel disease. This i s advanced for patient age. The possibility of superimposed changes due to chronic demyelination is n ot completely excluded. 3. Cerebral volume loss. Electronically signed by: Tasha Love MD (05/23/2021 3:21 PM) [id number]
== END ==
LOC: KCIC MRI 14:29
PROVIDERS: ATTEND Nurse Practitioner Family
DX: G43.709 Chronic migraine without aura, not intractable, without status migrainosus (principal); I67.89 Other cerebrovascular disease; J32.8 Other chronic sinusitis; R42 Dizziness and giddiness; R29.6 Repeated falls
CPT/HCPCS: 70551

== ENCOUNTER → 2021-06-11 | Outpatient (CLI) | payer MEDICARE, MEDICAID ==
--- NOTE | 2021-06-11 13:51 | RAD ---
EXAM: Nuclear gastric emptying scan. HISTORY: Pain. COMPARISON: None. TECHNIQUE: Serial static images were obtained over the stomach following oral administration of 2 mCi 99m-Tc sulfur colloid. FINDINGS: The stomach empties into the small bowel without evidence of reflux in the area of the esop hagus. Gastric retention percents: 1 hour 51% (normal range 34.8-91%) 2 hour 32% (normal range 2.7-60%) 3 hour 22% (normal range 0.5-28%) 4 hour 6% (normal range 0-10%) The estimated time for half emptying of gastric contents, i.e. 'gastric emptying time' is 70 minutes (normal is 66 +/- 22 minutes). IMPRESSION: Normal gastric emptying scan. Electronically signed by: Tasha Love MD (06/11/2021 1:48 PM) [id number]
== END ==
LOC: NM 08:53
PROVIDERS: ATTEND Internal Medicine Gastroenterology
DX: R10.9 Unspecified abdominal pain (principal)
CPT/HCPCS: 78264; A9541

== ENCOUNTER 2021-07-16 22:07 | Observation (INO) | payer MEDICARE, MEDICAID ==
[~2021-07-16] VITALS: Ht 182.9 cm; Wt 141.5 kg
[~2021-07-16 22:07] MED LIST changes: +POTA-121 PO; -POTA20TA4 PO
--- NOTE | 2021-07-16 22:31 | EKG ---
[facility] [address] [place] [address] Test Date: 2021-07-16 Test Time: 22:20:37 Pat Name: ERIC MCCOY Department: Room: Gender: Vp Patient: : 1965 Requested By: WERNER MCFADDEN Order Number: [id number] Reading MD: Measurements Intervals [place] Rate: 86 P: 64 [place]: 170 QRS: 0 QRSD: 74 T: 27 QT: 344 QTc: 414 Interpretive Statements SINUS RHYTHM LEFT ATRIAL ABNORMALITY LEFTWARD AXIS QRS(T) CONTOUR ABNORMALITY CONSISTENT WITH ANTEROSEPTAL INFARCT AGE UNDETERMINED ABNORMAL ECG RI6.02 No previous ECG available for comparison
--- NOTE | 2021-07-16 22:32 | PHYS DOC ---
Past Medical History Past Medical History: Diabetes-Type II, Hypertension, Kidney Stone, GA, P ancreatitis, Other Additional Past Medical Histor: 'coronary spasm' Past Surgical History: Cholecystectomy Additional Past Surgical Histo: Stents for kidney stones, lithotripsy x9, PTCA Smoking Status: Current Every Day Smoker Alcohol Use: Rarely Drug Use: Marijuana General Adult EDM: Chief Complaint: CHEST PAIN HPI: HPI: Patient is a 55 year old male with history of HTN, DM, coronary vasospasm who presents with chest pain. Chest pressure, left-sided. Does not radiate. Started at dinner at 7 PM. Has not relented. Took his 81 mg aspirin today. He is on long-acting nitrates for his coronary vasospasm, has not taken any short acting nitroglycerin today. States that he has been hospitalized for this several times. Was catheterized in December at this hospital, with clean coronaries. States that he was also hospitalized at [facility] in the last several months for the same symptoms and had a cardiac MRI, and CTA of the chest . CTA showed some calcifications in his lungs, but was otherwise normal, reportedly. "Cardiac Catheterization Conclusion 12/2020: 1. No significant coronary disease 2. Normal right and left-sided filling pressures without any pulmonary hypertension 3. No evidence of intracardiac shunt Recommendations Patient's chest pain with typical features relieved with nitroglycerin could be secondary to his known diagnosis of vasospastic angina. We will start long- acting nitroglycerin for symptomatic relief." Review of Systems: Review of Systems: Constitutional: Denies fever or chills. [] Eyes: Denies change in visual acuity. [] HENT: Denies nasal congestion or sore throat. [] Respiratory: Denies cough or shortness of breath. [] Cardiovascular: Reports chest pain, No edema. [] GI: Denies abdominal pain, nausea, vomiting, bloody stools or diarrhea. [] : Denies dysuria. [] Musculoskeletal: Denies back pain or joint pain. [] Integument: Denies rash. [] Neurologic: Denies headache, focal weakness or sensory changes. [] Endocrine: Denies polyuria or polydipsia. [] Lymphatic: Denies swollen glands. [] Psychiatric: Denies depression or anxiety. [] Heart Score: C/O Chest Pain: Yes HEART Score for Chest Pain: HEART Score for Chest Pain Response (Comments) Value History Moderately Suspicious 1 ECG Nonspecific Repolarizatio 1 Age >45 - < 65 1 Risk Factors >3 Risk Factors or Hx CAD 2 Total 5 Risk Factors: Risk Factors: DM, Current or recent (<one month) smoker, HTN, HLP, family history of CAD, obesity. Risk Scores: Score 0 - 3: 2.5% MACE over next 6 weeks - Discharge Home Score 4 - 6: 20.3% MACE over next 6 weeks - Admit for Clinical Observation Score 7 - 10: 72.7% MACE over next 6 weeks - Early Invasive Strategies Allergies: Allergies: Allergies Coded Allergies Type Severity Reaction Last Updated Verified ascorbic acid Allergy Intermediate itching 07/16/21 Yes ciprofloxacin Allergy Intermediate hives 07/16/21 Yes codeine Allergy Intermediate hives 07/16/21 Yes ketorolac Allergy Intermediate swelling 07/16/21 Yes Physical Exam: PE: Constitutional: Obese, appears uncomfortable. Positive Krishnamurthy sign HENT: Normocephalic, atraumatic, Eyes:conjunctiva normal, no discharge. [] Neck: Normal range of motion, no tenderness, supple, no stridor. [] Cardiovascular:Heart rate regular rhythm, no murmur [] Lungs & Thorax: Bilateral breath sounds clear to auscultation [] Abdomen: Bowel sounds normal, soft, no tenderness, no masses, no pulsatile masses. [] Skin: Warm, dry, no erythema, no rash. [] Back: No tenderness, no CVA tenderness. [] Extremities: No tenderness, no cyanosis, no clubbing, ROM intact, no edema. [] Neurologic: Alert and oriented X 3, normal motor function, normal sensory function, no focal deficits noted. [] Psychologic: Affect normal, judgement normal, mood normal. [] Current Patient Data: Vital Signs: Vital Signs Date Time Temp Pulse Resp B/P (MAP) Pulse Ox O2 Delivery O2 Flow Rate FiO2 07/16/21 22:15 97.9 119 21 164/82 (109) 100 97.9 EKG: EKG: Sinus rhythm. Anterior Q waves. No ST elevation, depression, or T wave inversions. Compared to an EKG on 03/02/2017, there are no lower changes [] Radiology/Procedures: Radiology/Procedures: [] Impression: [facility] [address] [place] [address] IMAGING REPORT Signed PATIENT: ERIC MCCOY ACCOUNT: [id number] : 1965 LOCATION: ER AGE: 55 SEX: M EXAM STATUS: REG ER ORD. PHYSICIAN: WERNER MCFADDEN MD REASON: chest pain PROCEDURE: PORTABLE CHEST 1V Exam: Chest one view INDICATION: Chest pain TECHNIQUE: Frontal view of the chest Comparisons: 04/17/2021 FINDINGS: The cardiomediastinal silhouette and pulmonary vessels are within normal limits. Strandy bibasilar airspace disease. No pleural effusion. IMPRESSION: Strandy bibasilar airspace disease may relate to atelectasis. Electronically signed by: Kelly Belcher MD (07/16/2021 11:01 PM) [facility] DICTATED and SIGNED BY: KELLY BELCHER MD DATE: 07/16/21 [id number] 0 Course & Med Decision Making: Course & Med Decision Making Pertinent Labs and Imaging studies reviewed. (See chart for details) Patient 55-year-old male with history of HTN, DM, coronary vasospasm who presents with chest pain consistent with his previous episodes of coronary vasospasm. Has taken his long-acting nitrates today, but has not taken any sublingual nitroglycerin. On arrival is afebrile, hemodynamically stable. He appears uncomfortable and is clutching his chest. Will treat with SL NTG, 324 of aspirin. Chest pain started at 7 PM, will check serial troponins to ensure no myocardial infarction from vasospasm. 2243 SL NTG did not improve pain. attempting treatment with morphine. Initial troponin negative. Serial troponins ordered. CXR without acute process, shows some likely mild atelectasis. 1250 2 troponins have been negative thus far. His chest pain has not been well controlled. Has required repetitive doses of morphine. Due to the continuing symptoms we will plan for admission. This does feel typical for his vasospasm, therefore I have not expanded work-up to evaluate for PE or aortic dissection. [id number] Qing Disclaimer: Qing Disclaimer: This electronic medical record was generated, in whole or in part, using a voice recognition dictation system. Departure Departure Impression: Primary Impression: Chest pain Disposition: ADMITTED INPATIENT Admitting Physician: TIERA Barlow) Condition: STABLE Referrals: AUGIE CHACKO MD (PCP) WERNER MCFADDEN MD Jul 16, 2021 22:32
[2021-07-16 22:33] LABS: BASO # 0.1 x10^3/uL (0.0-0.2); BASO % 1 % (0-3); EOS # 0.2 x10^3/uL (0.0-0.7); EOS % 2 % (0-3); HEMATOCRIT 44.4 % (39.0-53.0); HEMOGLOBIN 15.4 g/dL (13.0-17.5); LYMPH # 2.3 x10^3/uL (1.0-4.8); LYMPH % 26 % (24-48); MEAN CORPUSCULAR HEMOGLOBIN 31 pg (25-35); MEAN CORPUSCULAR HGB CONC 35 g/dL (31-37); MEAN CORPUSCULAR VOLUME 91 fL (79-100); MONO # 0.8 x10^3/uL (0.0-1.1); MONO % 9 % (0-9); NEUT # 5.6 x10^3/uL (1.8-7.7); NEUT % 62 % (31-73); PLATELET COUNT 117 x10^3/uL (140-400); RED BLOOD COUNT 4.89 x10^6/uL (4.30-5.70)
[2021-07-16] MEDS ORDERED: NITROGLYCERIN SUBLINGUAL 0.4 MG BOTTLE OF 25. SL PRN (22:45)
[2021-07-16] MEDS ORDERED: ASPIRIN CHEWABLE 81 MG TABLET. PO ONE (22:45)
--- NOTE | 2021-07-16 23:03 | RAD ---
Exam: Chest one view INDICATION: Chest pain TECHNIQUE: Frontal view of the chest Comparisons: 04/17/2021 FINDINGS: The cardiomediastinal silhouette and pulmonary vessels are within normal limits. Strandy bibasilar airspace disease. No pleural effusion. IMPRESSION: Strandy bibasilar airspace disease may relate to atelectasis. Electronically signed by: Kelly Kennedy MD (07/16/2021 11:01 PM) GENEVIEVE
[2021-07-16] MEDS ORDERED: MORPHINE SULFATE 4 MG/ML INJ. IVP ONE (23:30)
[2021-07-16 23:38] LABS: CALCIUM 9.6 mg/dL (8.5-10.1); GFR 34.7; POTASSIUM 3.4 mmol/L (3.5-5.1)
[2021-07-16 23:44] LABS: ALBUMIN 3.4 g/dL (3.4-5.0); ALBUMIN/GLOBULIN RATIO 0.9 (1.0-1.7); TOTAL BILIRUBIN 0.5 mg/dL (0.2-1.0); TOTAL PROTEIN 7.3 g/dL (6.4-8.2)
[2021-07-17] MEDS ORDERED: MORPHINE SULFATE 4 MG/ML INJ. IVP ONE (02:45)
[2021-07-17] MEDS ORDERED: NALOXONE 0.4 MG/ML VIAL. IV PRN (03:15)
[2021-07-17] MEDS ORDERED: MORPHINE SULFATE 4 MG/ML INJ. IVP PRN (03:15)
[2021-07-17 06:11] VITALS: BP 140/84
[2021-07-17] MEDS ORDERED: PANT20TA2 PO (06:31)
[2021-07-17] MEDS ORDERED: FURO-69 PO (06:31)
[2021-07-17 07:00] VITALS: BP 159/81
[2021-07-17] MEDS ORDERED: IV NORMAL SALINE 500ML BAG 500 ML IV ONE (07:15)
[2021-07-17] MEDS ORDERED: NICOTINE 21MG PATCH. TD PRN (07:30)
[2021-07-17] MEDS ORDERED: PANTOPRAZOLE 40 MG TABLET.DR. PO SCH (07:30)
[2021-07-17] MEDS ORDERED: DEXTROSE 50% 25 GM / 50ML DISP.SYRIN. IV PRN (07:30)
[2021-07-17] MEDS ORDERED: NITROGLYCERIN SUBLINGUAL 0.4 MG BOTTLE OF 25. SL PRN (07:45)
--- NOTE | 2021-07-17 07:55 | PDOC1 ---
History and Physical Date of Admission Date of Admission DATE: 07/17/21 TIME: 07:30 Identification/Chief Complaint Chief Complaint Chest pain Source Source: Chart review, Patient History of Present Illness History of Present Illness Mr. Mccoy is a 55-year-old male with past medical history HTN, DM2, coronary vasospasms, who presents to the ED with complaints of chest pain that began last night around dinner. Reports his pain was more like chest pressure, stating that it felt like "an elephant sitting on my chest". He had a cardiac catheterization here [facility] in December 2020 that showed clean c oronaries. He was seen again in our facility in March 2021 and had his Imdur increased to 60 mg daily. He does report a recent stay at [facility] where he had cardiac MRI and CT chest that showed calcifications of his lungs, but otherwise normal coronary arteries. States he has been compliant with his home medications, including his Imdur. He was recently started on daily diuretic for diastolic CHF. He is in the process with his PCP of setting up an appointment with pulmonology at for his pulmonary calcifications, earliest time would be in August. Labs on admission showed troponin <0.017x3, glucose 323, creatinine 2.0, platelets 117. At the time of my evaluation he is still complaining of some chest pressure. Admit patient for further medical man agement. Past Medical History Cardiovascular: HTN, MT, Other Renal/: Other Endocrine: Diabetes Past Surgical History Past Surgical History: Cholecystectomy, Other Family History Family History: Heart Disease Social History Smoke: 1 pack per day ALCOHOL: occassional Drugs: Marijuana Current Problem List Problem List Problems Medical Problems: (1) Chest pain Status: Acute Current Medications Current Medications Current Medications Nitroglycerin (Nitrostat) 0.4 mg PRN Q5MIN PRN SL CHEST PAIN Last administered on 07/16/21at 22:49; Start 07/16/21 at 22:45 Aspirin (Aspirin Chewable) 324 mg 1X ONCE PO Last administered on 07/16/21at 22:44; Start 07/16/21 at 22:45; Stop 07/16/21 at 22:46; Status DC Morphine Sulfate (Morphine Sulfate) 4 mg 1X ONCE IVP Last administered on 07/16/21at 23:47; Start 07/16/21 at 23:30; Stop 07/16/21 at 23:31; Status DC Morphine Sulfate (Morphine Sulfate) 4 mg 1X ONCE IVP Last administered on 07/17/21at 03:05; Start 07/17/21 at 02:45; Stop 07/17/21 at 02:46; Status DC Morphine Sulfate (Morphine Sulfate) 4 mg PRN Q2HR PRN IVP PAIN Last administered on 07/17/21at 06:25; Start 07/17/21 at 03:15; Stop 07/18/21 at 03:14 Naloxone HCl (Narcan) 0.4 mg 1X PRN IV OVER SEDATION; Start 07/17/21 at 03:15 Influenza Virus Vaccine Quadrival (Flulaval Quad [id number] Syringe) 0.5 ml ONCE ONCE VAX IM ; Start 07/17/21 at 09:00; Stop 07/17/21 at 09:01 Sodium Chloride 500 ml @ 500 mls/hr 1X ONCE IV ; Start 07/17/21 at 07:15; Stop 07/17/21 at 08:14 Aspirin (Aspirin Chewable) 81 mg DAILY PO ; Start 07/17/21 at 09:00 Atorvastatin Calcium (Lipitor) 10 mg QHS PO ; Start 07/17/21 at 21:00 Levothyroxine Sodium (Synthroid) 125 mcg DAILY06 PO ; Start 07/18/21 at 06:00 Mirtazapine (Remeron) 7.5 mg QHS PO ; Start 07/17/21 at 21:00 Pyridostigmine [place] (Mestinon) 60 mg TID PO ; Start 07/17/21 at 09:00 Insulin Human Lispro (HumaLOG) 28 units TIDWMEALS SQ ; Start 07/17/21 at 08:00 Insulin Glargine (Lantus Syringe) 80 unit QHS SQ ; Start 07/17/21 at 21:00 Pantoprazole Sodium (Protonix) 40 mg DAILYAC PO ; Start 07/17/21 at 07:30 Active Scripts Active Prilosec Otc (Omeprazole Magnesium) 20 Mg Tablet.dr 20 Mg PO DAILY 30 Days Carafate (Sucralfate) 1 Gm Tablet 1 Tab PO QID 30 Days Isosorbide Mononitrate Er (Isosorbide Mononitrate) 60 Mg Tab.er.24h 1 Tab PO DAILY Aspirin 81 Mg Tab.chew 1 Tab PO DAILY 30 Days Reported Lasix (Furosemide) 20 Mg Tablet 20 Mg PO DAILY Protonix (Pantoprazole Sodium) 20 Mg Tablet.dr 20 Mg PO BID Pyridostigmine [place] 60 Mg Tablet 1 Tab PO TID Atorvastatin Calcium 10 Mg Tablet 1 Tab PO QHS Emgality (Galcanezumab-Gnlm) 120 Mg/1 Ml Pen.injctr 1 Ml SQ Q4WK Omeprazole 40 Mg Capsule.dr 40 Mg PO DAILY Klor-Con M20 (Potassium Chloride) 20 Meq Tab.er.prt 20 Meq PO DAILY Sumatriptan 20 Mg [place] Unknown Dose NS DAILY Diazepam 10 Mg Tablet 1 Tab PO BID Rizatriptan (Rizatriptan Benzoate) 10 Mg Tablet 1 Tab PO PRN DAILY PRN Levothyroxine Sodium 125 Mcg Tablet 125 Mcg PO DAILY06 Desvenlafaxine Succinate ER (Desvenlafaxine Succinate) 100 Mg Tab.er.24h 1 Tab PO DAILY Mirtazapine 7.5 Mg Tablet 1 Tab PO QHS Pregabalin 75 Mg Capsule 1 Cap PO BID Levemir Flextouch (Insulin Detemir) 100 Unit/1 Ml Insuln.pen 80 Units SQ QHS Insulin Aspart Flexpen (Insulin Aspart) 100 Unit/1 Ml Insuln.pen 28 Units SQ TIDAC Allergies Allergies: Coded Allergies: ascorbic acid (Verified Allergy, Intermediate, itching, 07/16/21) ciprofloxacin (Verified Allergy, Intermediate, hives, 07/16/21) codeine (Verified Allergy, Intermediate, hives, 07/16/21) TOLERATES MORPHINE ketorolac (Verified Allergy, Intermediate, swelling, 07/16/21) tolerates ibuprofen ROS Review of System GENERAL: No history of weight change, weakness or fevers. SKIN: No bruising, hair changes or rashes. EYES: No blurred, double or loss of vision. NOSE AND THROAT: No history of nosebleeds, hoarseness or sore throat. HEART: Chest pain. Denies palpitations. LUNGS: Denies cough, hemoptysis, wheezing or shortness of breath. GASTROINTESTINAL: Denies nausea, vomiting, abdominal pain. GENITOURINARY: Denies dysuria, frequency, urgency, hematuria. NEUROLOGIC: Denies history of numbness, tingling, tremor or weakness. PSYCHIATRIC: Denies anxiety, denies depression. ENDOCRINE: No history of heat or cold intolerance, polyuria or polydipsia. EXTREMITIES: Denies muscle weakness, joint pain, pain on walking or stiffness. Physical Exam Physical Exam General: Alert, Oriented X3, Cooperative, No acute distress. Morbidly obese male. HEENT: PERRLA, EOMI Lungs: Clear to auscultation, Normal air movement Heart: RRR, no murmurs Cardiovascular: S1, S2 Abdomen: Normal bowel sounds, Soft, No tenderness Extremities: Minimal bilateral lower extremity edema. No clubbing, No cyanosis Skin: No rashes, No significant lesion Neuro: Normal speech, Normal tone, Sensation intact Psych/Mental Status: Mental status NL, Mood NL Vitals Vitals Vital Signs Date Time Temp Pulse Resp B/P (MAP) Pulse Ox O2 Delivery O2 Flow Rate FiO2 07/17/21 06:51 Room Air 07/17/21 06:25 16 07/17/21 06:11 97.9 68 140/84 (102) 96 97.9 Labs Labs Laboratory Tests Test 07/16/21 22:27 07/16/21 23:10 07/17/21 01:15 07/17/21 04:20 White Blood Count 9.0 x10^3/uL (4.0-11.0) Red Blood Count 4.89 x10^6/uL (4.30-5.70) Hemoglobin 15.4 g/dL (13.0-17.5) Hematocrit 44.4 % (39.0-53.0) Mean Corpuscular Volume 91 fL (79-100) Mean Corpuscular Hemoglobin 31 pg (25-35) Mean Corpuscular Hemoglobin Concent 35 g/dL (31-37) Red Cell Distribution Width 15.0 % (11.5-14.5) Platelet Count 117 x10^3/uL (140-400) Neutrophils (%) (Auto) 62 % (31-73) Lymphocytes (%) (Auto) 26 % (24-48) Monocytes (%) (Auto) 9 % (0-9) Eosinophils (%) (Auto) 2 % (0-3) Basophils (%) (Auto) 1 % (0-3) Neutrophils # (Auto) 5.6 x10^3/uL (1.8-7.7) Lymphocytes # (Auto) 2.3 x10^3/uL (1.0-4.8) Monocytes # (Auto) 0.8 x10^3/uL (0.0-1.1) Eosinophils # (Auto) 0.2 x10^3/uL (0.0-0.7) Basophils # (Auto) 0.1 x10^3/uL (0.0-0.2) Sodium Level 137 mmol/L (136-145) Potassium Level 3.4 mmol/L (3.5-5.1) Chloride Level 103 mmol/L (98-107) Carbon Dioxide Level 24 mmol/L (21-32) Anion Gap 10 (6-14) Blood Urea Nitrogen 18 mg/dL (8-26) Creatinine 2.0 mg/dL (0.7-1.3) Estimated GFR (Cockcroft-Gault) 34.7 BUN/Creatinine Ratio 9 (6-20) Glucose Level 323 mg/dL (70-99) Calcium Level 9.6 mg/dL (8.5-10.1) Total Bilirubin 0.5 mg/dL (0.2-1.0) Aspartate Amino Transf (AST/SGOT) 35 U/L (15-37) Alanine Aminotransferase (ALT/SGPT) 73 U/L (16-63) Alkaline Phosphatase 201 U/L (46-116) Troponin I Quantitative < 0.017 ng/mL (0.000-0.055) < 0.017 ng/mL (0.000-0.055) < 0.017 ng/mL (0.000-0.055) Total Protein 7.3 g/dL (6.4-8.2) Albumin 3.4 g/dL (3.4-5.0) Albumin/Globulin Ratio 0.9 (1.0-1.7) Laboratory Tests Test 07/16/21 22:27 07/16/21 23:10 07/17/21 01:15 07/17/21 04:20 White Blood Count 9.0 x10^3/uL (4.0-11.0) Red Blood Count 4.89 x10^6/uL (4.30-5.70) Hemoglobin 15.4 g/dL (13.0-17.5) Hematocrit 44.4 % (39.0-53.0) Mean Corpuscular Volume 91 fL (79-100) Mean Corpuscular Hemoglobin 31 pg (25-35) Mean Corpuscular Hemoglobin Concent 35 g/dL (31-37) Red Cell Distribution Width 15.0 % (11.5-14.5) Platelet Count 117 x10^3/uL (140-400) Neutrophils (%) (Auto) 62 % (31-73) Lymphocytes (%) (Auto) 26 % (24-48) Monocytes (%) (Auto) 9 % (0-9) Eosinophils (%) (Auto) 2 % (0-3) Basophils (%) (Auto) 1 % (0-3) Neutrophils # (Auto) 5.6 x10^3/uL (1.8-7.7) Lymphocytes # (Auto) 2.3 x10^3/uL (1.0-4.8) Monocytes # (Auto) 0.8 x10^3/uL (0.0-1.1) Eosinophils # (Auto) 0.2 x10^3/uL (0.0-0.7) Basophils # (Auto) 0.1 x10^3/uL (0.0-0.2) Sodium Level 137 mmol/L (136-145) Potassium Level 3.4 mmol/L (3.5-5.1) Chloride Level 103 mmol/L (98-107) Carbon Dioxide Level 24 mmol/L (21-32) Anion Gap 10 (6-14) Blood Urea Nitrogen 18 mg/dL (8-26) Creatinine 2.0 mg/dL (0.7-1.3) Estimated GFR (Cockcroft-Gault) 34.7 BUN/Creatinine Ratio 9 (6-20) Glucose Level 323 mg/dL (70-99) Calcium Level 9.6 mg/dL (8.5-10.1) Total Bilirubin 0.5 mg/dL (0.2-1.0) Aspartate Amino Transf (AST/SGOT) 35 U/L (15-37) Alanine Aminotransferase (ALT/SGPT) 73 U/L (16-63) Alkaline Phosphatase 201 U/L (46-116) Troponin I Quantitative < 0.017 ng/mL (0.000-0.055) < 0.017 ng/mL (0.000-0.055) < 0.017 ng/mL (0.000-0.055) Total Protein 7.3 g/dL (6.4-8.2) Albumin 3.4 g/dL (3.4-5.0) Albumin/Globulin Ratio 0.9 (1.0-1.7) Images Images PATIENT: ERIC MCCOY ACCOUNT: [id number] : 1965 LOCATION: ER AGE: 55 SEX: M EXAM STATUS: REG ER ORD. PHYSICIAN: WERNER MCFADDEN MD REASON: chest pain PROCEDURE: PORTABLE CHEST 1V Exam: Chest one view INDICATION: Chest pain TECHNIQUE: Frontal view of the chest Comparisons: 04/17/2021 FINDINGS: The cardiomediastinal silhouette and pulmonary vessels are within normal limits. Strandy bibasilar airspace disease. No pleural effusion. IMPRESSION: Strandy bibasilar airspace disease may relate to atelectasis. VTE Prophylaxis Ordered VTE Prophylaxis Devices: No VTE Pharmacological Prophylaxi: Yes Assessment/Plan Assessment/Plan Chest pain Acute on chronic kidney disease DM2 with hyperglycemia Thrombocytopenia Plan: Troponins <0.017x3. Consultation was placed to cardiology. As needed nitroglycerin Echocardiogram on 01/10/2021 showed normal left ventricular systolic function, with EF 60 to 65% Creatinine 2.0 on admission. Will provide IV fluids to help preserve kidney function (creatinine 1.4 on 03/28/2021) Platelet have been chronically low (around 96 on 03/27/2021). We will continue to monitor and recommend follow-up with PCP in this regard. Resume home basal/prandial insulin Resume remaining home medications FEN - Cardiac diet PPX - Lovenox FULL CODE Dispo - OBS for above Patient names his girlfriend (Georgie Becerra) as surrogate decision Justifications for Admission Other Justification YVROSE APONTE MD Jul 17, 2021 07:55
[2021-07-17] MEDS ORDERED: ACETAMINOPHEN 325 MG TABLET. PO PRN (08:00)
[2021-07-17] MEDS ORDERED: MAG HYDROX/ALUMINUM HYD/SIMETH 30 ML ORAL.SUSP PO PRN (08:00)
[2021-07-17] MEDS ORDERED: ZOLPIDEM 5 MG TABLET. PO PRN (08:00)
[2021-07-17] MEDS ORDERED: CALCIUM CARBONATE 500 MG TAB.CHEW PO PRN (08:00)
[2021-07-17] MEDS ORDERED: ONDANSETRON PF 4 MG/2 ML VIAL. IVP PRN (08:00)
[2021-07-17] MEDS ORDERED: MAGNESIUM HYDROXIDE 2,400 MG/30 ML ORAL.SUSP. PO PRN (08:00)
[2021-07-17] MEDS ORDERED: traMADol 50 MG TABLET PO PRN (08:15)
[2021-07-17] MEDS ORDERED: ENOXAPARIN 40 MG/0.4 ML SYRINGE. SQ SCH (09:00)
[2021-07-17] MEDS ORDERED: ASPIRIN CHEWABLE 81 MG TABLET. PO SCH (09:00)
[2021-07-17] MEDS ORDERED: FUROSEMIDE 20 MG TABLET PO SCH (09:00)
[2021-07-17] MEDS ORDERED: FLU VACC QUAD 21-22 (6MOS+) PF 0.5 ML SYRINGE. VAX IM ONE (09:00)
[2021-07-17] MEDS ORDERED: PREGABALIN 75 MG CAPSULE PO SCH (09:00)
[2021-07-17] MEDS ORDERED: POTASSIUM CHLORIDE 20 MEQ TABLET.ER. PO SCH (09:00)
[2021-07-17] MEDS: PYRIDOSTIGMINE BROMIDE 60 MG TABLET PO SCH ×2 (10:00→12:16)
[2021-07-17] MEDS: PREGABALIN 25 MG CAPSULE PO SCH ×2 (10:01→12:16)
[2021-07-17] MEDS: INSULIN LISPRO 300 UNITS/3 ML VIAL. SQ SCH ×4 (10:17→12:27)
--- NOTE | 2021-07-17 10:23 | PDOC3 ---
Discharge Summary Visit Information Date of Admission: Jul 17, 2021 Date of Discharge: Jul 17, 2021 Final Diagnosis Problems Medical Problems: (1) Chest pain Status: Acute Brief Hospital Course Allergies Allergies Coded Allergies Type Severity Reaction Last Updated Verified ascorbic acid Allergy Intermediate itching 07/16/21 Yes ciprofloxacin Allergy Intermediate hives 07/16/21 Yes codeine Allergy Intermediate hives 07/16/21 Yes ketorolac Allergy Intermediate swelling 07/16/21 Yes Vital Signs Vital Signs Date Time Temp Pulse Resp B/P (MAP) Pulse Ox O2 Delivery O2 Flow Rate FiO2 07/17/21 07:15 Room Air 07/17/21 07:00 97.6 66 18 159/81 (107) 96 97.6 Lab Results Laboratory Tests Test 07/16/21 22:27 07/16/21 23:10 07/17/21 01:15 07/17/21 04:20 White Blood Count 9.0 x10^3/uL (4.0-11.0) Red Blood Count 4.89 x10^6/uL (4.30-5.70) Hemoglobin 15.4 g/dL (13.0-17.5) Hematocrit 44.4 % (39.0-53.0) Mean Corpuscular Volume 91 fL (79-100) Mean Corpuscular Hemoglobin 31 pg (25-35) Mean Corpuscular Hemoglobin Concent 35 g/dL (31-37) Red Cell Distribution Width 15.0 % (11.5-14.5) Platelet Count 117 x10^3/uL (140-400) Neutrophils (%) (Auto) 62 % (31-73) Lymphocytes (%) (Auto) 26 % (24-48) Monocytes (%) (Auto) 9 % (0-9) Eosinophils (%) (Auto) 2 % (0-3) Basophils (%) (Auto) 1 % (0-3) Neutrophils # (Auto) 5.6 x10^3/uL (1.8-7.7) Lymphocytes # (Auto) 2.3 x10^3/uL (1.0-4.8) Monocytes # (Auto) 0.8 x10^3/uL (0.0-1.1) Eosinophils # (Auto) 0.2 x10^3/uL (0.0-0.7) Basophils # (Auto) 0.1 x10^3/uL (0.0-0.2) Sodium Level 137 mmol/L (136-145) Potassium Level 3.4 mmol/L (3.5-5.1) Chloride Level 103 mmol/L (98-107) Carbon Dioxide Level 24 mmol/L (21-32) Anion Gap 10 (6-14) Blood Urea Nitrogen 18 mg/dL (8-26) Creatinine 2.0 mg/dL (0.7-1.3) Estimated GFR (Cockcroft-Gault) 34.7 BUN/Creatinine Ratio 9 (6-20) Glucose Level 323 mg/dL (70-99) Calcium Level 9.6 mg/dL (8.5-10.1) Total Bilirubin 0.5 mg/dL (0.2-1.0) Aspartate Amino Transf (AST/SGOT) 35 U/L (15-37) Alanine Aminotransferase (ALT/SGPT) 73 U/L (16-63) Alkaline Phosphatase 201 U/L (46-116) Troponin I Quantitative < 0.017 ng/mL (0.000-0.055) < 0.017 ng/mL (0.000-0.055) < 0.017 ng/mL (0.000-0.055) Total Protein 7.3 g/dL (6.4-8.2) Albumin 3.4 g/dL (3.4-5.0) Albumin/Globulin Ratio 0.9 (1.0-1.7) Test 07/17/21 07:45 Glucose (Fingerstick) 183 mg/dL (70-99) Laboratory Tests Test 07/16/21 22:27 07/16/21 23:10 07/17/21 01:15 07/17/21 04:20 White Blood Count 9.0 x10^3/uL (4.0-11.0) Red Blood Count 4.89 x10^6/uL (4.30-5.70) Hemoglobin 15.4 g/dL (13.0-17.5) Hematocrit 44.4 % (39.0-53.0) Mean Corpuscular Volume 91 fL (79-100) Mean Corpuscular Hemoglobin 31 pg (25-35) Mean Corpuscular Hemoglobin Concent 35 g/dL (31-37) Red Cell Distribution Width 15.0 % (11.5-14.5) Platelet Count 117 x10^3/uL (140-400) Neutrophils (%) (Auto) 62 % (31-73) Lymphocytes (%) (Auto) 26 % (24-48) Monocytes (%) (Auto) 9 % (0-9) Eosinophils (%) (Auto) 2 % (0-3) Basophils (%) (Auto) 1 % (0-3) Neutrophils # (Auto) 5.6 x10^3/uL (1.8-7.7) Lymphocytes # (Auto) 2.3 x10^3/uL (1.0-4.8) Monocytes # (Auto) 0.8 x10^3/uL (0.0-1.1) Eosinophils # (Auto) 0.2 x10^3/uL (0.0-0.7) Basophils # (Auto) 0.1 x10^3/uL (0.0-0.2) Sodium Level 137 mmol/L (136-145) Potassium Level 3.4 mmol/L (3.5-5.1) Chloride Level 103 mmol/L (98-107) Carbon Dioxide Level 24 mmol/L (21-32) Anion Gap 10 (6-14) Blood Urea Nitrogen 18 mg/dL (8-26) Creatinine 2.0 mg/dL (0.7-1.3) Estimated GFR (Cockcroft-Gault) 34.7 BUN/Creatinine Ratio 9 (6-20) Glucose Level 323 mg/dL (70-99) Calcium Level 9.6 mg/dL (8.5-10.1) Total Bilirubin 0.5 mg/dL (0.2-1.0) Aspartate Amino Transf (AST/SGOT) 35 U/L (15-37) Alanine Aminotransferase (ALT/SGPT) 73 U/L (16-63) Alkaline Phosphatase 201 U/L (46-116) Troponin I Quantitative < 0.017 ng/mL (0.000-0.055) < 0.017 ng/mL (0.000-0.055) < 0.017 ng/mL (0.000-0.055) Total Protein 7.3 g/dL (6.4-8.2) Albumin 3.4 g/dL (3.4-5.0) Albumin/Globulin Ratio 0.9 (1.0-1.7) Test 07/17/21 07:45 Glucose (Fingerstick) 183 mg/dL (70-99) Brief Hospital Course Mr. Szymanski is a 55 old male with known history of coronary vasospasms who presented with chest pressure. Troponins <0.017x3. Chest x-ray admission showed strandy bibasilar airspace disease may relate to atelectasis. He did admit to me that his symptoms were consistent with his known history of vasospasms. He feels comfortable discharging home and follow-up with PCP. Discharge Information Condition at Discharge: Improved Disposition/Orders: D/C to Home Scheduled Aspirin (Aspirin) 81 Mg Tab.chew, 1 TAB PO DAILY for angina for 30 Days, #30 Ref 3 Prescribed by: YIN ULRICH on 01/04/21 1618 Last Action: Continued on 07/17/21715 by YVROSE APONTE MD Atorvastatin Calcium (Atorvastatin Calcium) 10 Mg Tablet, 1 TAB PO QHS for cholesterol, (Reported) Entered as Reported by: LETICIA LEONARDO RN on 03/27/21241 Last Action: Continued on 07/17/21715 by YVROSE APONTE MD Desvenlafaxine Succinate (Desvenlafaxine Succinate ER) 100 Mg Tab.er.24h, 1 TAB PO DAILY for depression, (Reported) Entered as Reported by: GEO WALSH on 01/03/21 0842 Diazepam (Diazepam) 10 Mg Tablet, 1 TAB PO BID for , (Reported) Entered as Reported by: LETICIA LEONARDO RN on 03/27/21241 Last Action: Reviewed on 07/17/21630 by KAYLA STEINBERG RN Furosemide (Lasix) 20 Mg Tablet, 20 MG PO DAILY for water retention, (Reported) Entered as Reported by: KAYLA STEINBERG RN on 07/17/21630 Last Action: Continued on 07/17/21752 by YVROSE APONTE MD Galcanezumab-Gnlm (Emgality) 120 Mg/1 Ml Pen.injctr, 1 ML SQ Q4WK for , (Reported) Entered as Reported by: LETICIA LEONARDO RN on 03/27/21241 Last Action: Reviewed on 07/17/21630 by KAYLA MARYAN, RN Insulin Aspart (Insulin Aspart Flexpen) 100 Unit/1 Ml Insuln.pen, 28 UNITS SQ TIDAC for DM, (Reported) Entered as Reported by: GEO WALSH on 01/03/21841 Last Action: Converted on 07/17/21715 by YVROSE APONTE MD Insulin Detemir (Levemir Flextouch) 100 Unit/1 Ml Insuln.pen, 80 UNITS SQ QHS for DM, (Reported) Entered as Reported by: GEO WALSH on 01/03/21841 Last Action: Converted on 07/17/21715 by YVROSE APONTE MD Isosorbide Mononitrate (Isosorbide Mononitrate Er) 60 Mg Tab.er.24h, 1 TAB PO DAILY for Angina, #90 Ref 3 Prescribed by: YVROSE APONTE MD on 03/28/21913 Last Action: Reviewed on 07/17/21630 by KAYLA STEINBERG RN Levothyroxine Sodium (Levothyroxine Sodium) 125 Mcg Tablet, 125 MCG PO DAILY06 for THYROID SUPPLEMENT, #30 Ref 0 (Reported) Entered as Reported by: GEO WALSH on 01/03/21843 Last Action: Continued on 07/17/21715 by YVROSE APONTE MD Mirtazapine (Mirtazapine) 7.5 Mg Tablet, 1 TAB PO QHS for insomnia, (Reported) Entered as Reported by: GEO WALSH on 01/03/21841 Last Action: Continued on 07/17/21715 by YVROSE APONTE MD Omeprazole (Omeprazole) 40 Mg Capsule.dr, 40 MG PO DAILY for , (Reported) Entered as Reported by: LETICIA LEONARDO RN on 03/27/21 0242 Omeprazole Magnesium (Prilosec Otc) 20 Mg Tablet.dr, 20 MG PO DAILY for 30 Days, #30 Prescribed by: TONY GRANDE, Christopher on 04/04/21 1651 Pantoprazole Sodium (Protonix) 20 Mg Tablet.dr, 20 MG PO BID for gerd, (Reported) Entered as Reported by: KAYLA STEINBERG RN on 07/17/21630 Last Action: Converted on 07/17/21715 by YVROSE APONTE MD Potassium Chloride (Klor-Con M20) 20 Meq Tab.er.prt, 20 MEQ PO DAILY for , (Reported) Entered as Reported by: LETICIA LEONARDO RN on 03/27/21241 Last Action: Continued on 07/17/21 0753 by YVROSE APONTE MD Pyridostigmine [place] (Pyridostigmine [place]) 60 Mg Tablet, 1 TAB PO TID for , (Reported) Entered as Reported by: LETICIA LEONARDO RN on 03/27/21241 Last Action: Continued on 07/17/21 0716 by YVROSE APONTE MD Sucralfate (Carafate) 1 Gm Tablet, 1 TAB PO QID for 30 Days, #120 Ref 0 Prescribed by: TONY GRANDE D.O. on 04/04/211650 Sumatriptan (Sumatriptan) 20 Mg [place], Unknown Dose NS DAILY for , (Reported) Entered as Reported by: LETICIA LEONARDO RN on 03/27/21241 Scheduled PRN Rizatriptan Benzoate (Rizatriptan) 10 Mg Tablet, 1 TAB PO PRN DAILY PRN for MIGRAINE HEADACHE, (Reported) Entered as Reported by: LETICIA LEONARDO RN on 03/27/21241 Last Action: Reviewed on 07/17/21 06 by KAYLA STEINBERG RN Justicifation of Admission Dx: Justifications for Admission: Justification of Admission Dx: Yes YVROSE APONTE MD Jul 17, 2021 10:23
[2021-07-17 11:00] VITALS: BP 151/79
--- NOTE | 2021-07-17 11:19 | NUR ---
SW following. Discussed with RN, pt from home, room air, ada diet. Discharge order for home with self care. RN advised no SW needs at this time.
--- NOTE | 2021-07-17 14:08 | NUR ---
Patient was educated on diet and discharge instructions for cardiac care. IV and telemonitor discontinued. This RN escorted out patient to private vehicle for home by ambulation.
[2021-07-17] MEDS ORDERED: INSULIN GLARGINE SYRINGE. SQ SCH (21:00)
[2021-07-17] MEDS ORDERED: ATORVASTATIN CALCIUM 10 MG TABLET. PO SCH (21:00)
[2021-07-17] MEDS ORDERED: MIRTAZAPINE 7.5 MG TABLET. PO SCH (21:00)
[2021-07-18] MEDS ORDERED: LEVOTHYROXINE 125 MCG TABLET PO SCH (06:00)
== END 2021-07-17 13:56 | disposition home or self-care (01) ==
LOC: ER 22:07 → ED HOLD 07-17 03:02 → 5 NORTH 07-17 04:16
PROVIDERS: ADMIT Internal Medicine; ATTEND Internal Medicine
DX: R07.89 Other chest pain (principal); E11.65 Type 2 diabetes mellitus with hyperglycemia; E11.22 Type 2 diabetes mellitus with diabetic chronic kidney disease; N18.9 Chronic kidney disease, unspecified; I10 Essential (primary) hypertension; D69.6 Thrombocytopenia, unspecified; F17.200 Nicotine dependence, unspecified, uncomplicated; Z79.4 Long term (current) use of insulin; Z79.82 Long term (current) use of aspirin; Z79.899 Other long term (current) drug therapy; Z87.442 Personal history of urinary calculi; Z23 Encounter for immunization
CPT/HCPCS: 36415; 71045; 80053; 82962; 84484; 85025; 90471; 90686; 93005; 96374; 96376; 99285; G0008; G0378; J1650; J1815; J2270; J7040; 96361; 96372; G0379

== ENCOUNTER 2021-08-04 17:56 | Emergency (ER) | payer MEDICARE, MEDICAID ==
[~2021-08-04] VITALS: Ht 182.9 cm; Wt 140.2 kg
[~2021-08-04 17:56] MED LIST changes: +FURO-69 PO; +PANT20TA2 PO
[2021-08-04 18:24] LABS: BASO % 1 % (0-3); EOS # 0.2 x10^3/uL (0.0-0.7); EOS % 2 % (0-3); HEMATOCRIT 43.4 % (39.0-53.0); LYMPH # 2.5 x10^3/uL (1.0-4.8); LYMPH % 29 % (24-48); MEAN CORPUSCULAR HEMOGLOBIN 31 pg (25-35); MEAN CORPUSCULAR HGB CONC 35 g/dL (31-37); MEAN CORPUSCULAR VOLUME 91 fL (79-100); MONO # 0.7 x10^3/uL (0.0-1.1); MONO % 9 % (0-9); NEUT # 5.1 x10^3/uL (1.8-7.7); NEUT % 59 % (31-73); PLATELET COUNT 116 x10^3/uL (140-400); RED BLOOD COUNT 4.77 x10^6/uL (4.30-5.70); RED CELL DISTRIBUTION WIDTH 14.9 % (11.5-14.5); WHITE BLOOD COUNT 8.6 x10^3/uL (4.0-11.0)
[2021-08-04] MEDS ORDERED: MORPHINE SULFATE 10 MG/ML VIAL. IV ONE (18:30)
--- NOTE | 2021-08-04 18:33 | RAD ---
XR CHEST 1V Clinical History: Reason: chest pain / Spl. Instructions: / History: Technique: AP view of the chest was obtained at 08/04/2021 6:27 PM. Comparison: July 16, 2021. Findings: The cardiomediastinal silhouette is normal. The pulmonary vasculature is normal. There is mild perihi lar and basilar linear opacities. Impression: Bilateral linear opacities are seen previously could be discoid atelectasis or scar. Stable appearanc e of the chest. Electronically signed by: Isiah Price III, MD (08/04/2021 6:31 PM) [facility]
--- NOTE | 2021-08-04 18:33 | PHYS DOC ---
Past Medical History Past Medical History: Diabetes-Type II, Hypertension, Kidney Stone, CT, Pancreatitis, Other Additional Past Medical Histor: 'coronary spasm' Past Surgical History: Cholecystectomy Additional Past Surgical Histo: Stents for kidney stones, lithotripsy x11, PTCA, nephrostomy Smoking Status: Never Smoker Additional Information: 12/19 ppd Alcohol Use: Occasionally Drug Use: Marijuana General Adult EDM: Chief Complaint: CHEST PAIN HPI: HPI: Patient is a 55 year old male with history of HTN, DM, previously diagnosed coronary vasospasm, pancreatitis who presents with chest pain that he states is typical of his coronary vasospasm. States chest pain episode started up more frequently approximately 3 days ago. His current episode of chest pain has been present for approximately 7 hours continuously. It is dull/pressure-like sensation. Central and left-sided chest. Occasionally gets sharp stabs towards his left shoulder. He is on a long acting nitrate (Imdur), which she is unsure the dose of. He took 81 mg aspirin earlier today. He is last hospitalized on 07/17 with similar pain and had serial troponins x3 that were negative. He states that he has had a full cardiac work-up with cardiac catheterization, echocardiogram that did not show a definite cause. After his last admission he was instructed to follow-up with pulmonary medicine, which she has scheduled for 08/11. Review of Systems: Review of Systems: Constitutional: Denies fever or chills. [] Eyes: Denies change in visual acuity. [] HENT: Denies nasal congestion or sore throat. [] Respiratory: Denies cough or shortness of breath. [] Cardiovascular: Reports chest pain. No edema. [] GI: Denies abdominal pain, nausea, vomiting, bloody stools or diarrhea. [] : Denies dysuria. [] Musculoskeletal: Denies back pain or joint pain. [] Integument: Denies rash. [] Neurologic: Denies headache, focal weakness or sensory changes. [] Endocrine: Denies polyuria or polydipsia. [] Lymphatic: Denies swollen glands. [] Psychiatric: Denies depression or anxiety. [] Heart Score: C/O Chest Pain: Yes HEART Score for Chest Pain: HEART Score for Chest Pain Response (Comments) Value History Highly Suspicious 2 ECG Normal 0 Age >45 - < 65 1 Risk Factors >3 Risk Factors or Hx CAD 2 Total 5 Risk Factors: Risk Factors: DM, HTN, obesity Risk Scores: Score 4 - 6: 20.3% MACE over next 6 weeks - Admit for Clinical Observation Allergies: Allergies: Allergies Coded Allergies Type Severity Reaction Last Updated Verified ascorbic acid Allergy Intermediate itching 08/04/21 Yes ciprofloxacin Allergy Intermediate hives 08/04/21 Yes codeine Allergy Intermediate hives 08/04/21 Yes ketorolac Allergy Intermediate swelling 08/04/21 Yes Physical Exam: PE: Constitutional: Peers uncomfortable, clutching chest. HENT: Normocephalic, atraumatic, Eyes: conjunctiva normal, no discharge. [] Neck: Normal range of motion, no tenderness, supple, no stridor. [] Cardiovascular:Heart rate regular rhythm, no murmur [] Lungs & Thorax: Bilateral breath sounds clear to auscultation [] Abdomen: Obese abdomen, nontender to palpation. Skin: Warm, dry, no erythema, no rash. [] Back: No tenderness, no CVA tenderness. [] Extremities: No tenderness, no cyanosis, no clubbing, ROM intact, no edema. [] Neurologic: Alert and oriented X 3, normal motor function, normal sensory function, no focal deficits noted. [] Psychologic: Affect normal, judgement normal, mood normal. [] Current Patient Data: Labs: Laboratory Tests Test 08/04/21 18:10 White Blood Count 8.6 x10^3/uL (4.0-11.0) Red Blood Count 4.77 x10^6/uL (4.30-5.70) Hemoglobin 15.0 g/dL (13.0-17.5) Hematocrit 43.4 % (39.0-53.0) Mean Corpuscular Volume 91 fL (79-100) Mean Corpuscular Hemoglobin 31 pg (25-35) Mean Corpuscular Hemoglobin Concent 35 g/dL (31-37) Red Cell Distribution Width 14.9 % (11.5-14.5) H Platelet Count 116 x10^3/uL (140-400) L Neutrophils (%) (Auto) 59 % (31-73) Lymphocytes (%) (Auto) 29 % (24-48) Monocytes (%) (Auto) 9 % (0-9) Eosinophils (%) (Auto) 2 % (0-3) Basophils (%) (Auto) 1 % (0-3) Neutrophils # (Auto) 5.1 x10^3/uL (1.8-7.7) Lymphocytes # (Auto) 2.5 x10^3/uL (1.0-4.8) Monocytes # (Auto) 0.7 x10^3/uL (0.0-1.1) Eosinophils # (Auto) 0.2 x10^3/uL (0.0-0.7) Basophils # (Auto) 0.0 x10^3/uL (0.0-0.2) Laboratory Tests 08/04/21 18:10 Vital Signs: Vital Signs Date Time Temp Pulse Resp B/P (MAP) Pulse Ox O2 Delivery O2 Flow Rate FiO2 08/04/21 18:00 97.5 83 24 98 Room Air 97.5 EKG: EKG: Sinus rhythm. Rate 80. PVC present. Normal axis. Normal intervals. No acute ST elevation or depression. No T wave inversion [] Radiology/Procedures: Radiology/Procedures: [] Impression: [facility] [address] [place] [address] IMAGING REPORT Signed PATIENT: ERIC MCCOY ACCOUNT: [id number] : 1965 LOCATION: ER AGE: 55 SEX: M EXAM STATUS: PRE ER ORD. PHYSICIAN: WERNER MCFADDEN MD REASON: chest pain PROCEDURE: CHEST AP ONLY XR CHEST 1V Clinical History: Reason: chest pain / Spl. Instructions: / History: Technique: AP view of the chest was obtained at 08/04/2021 6:27 PM. Comparison: July 16, 2021. Findings: The cardiomediastinal silhouette is normal. The pulmonary vasculature is normal. There is mild perihilar and basilar linear opacities. Impression: Bilateral linear opacities are seen previously could be discoid atelectasis or scar. Stable appearance of the chest. Electronically signed by: Ana Beatty III, MD (08/04/2021 6:31 PM) [facility] DICTATED and SIGNED BY: ANA BEATTY III, MD DATE: 08/04/21 [id number] 0 Course & Med Decision Making: Course & Med Decision Making Pertinent Labs and Imaging studies reviewed. (See chart for details) Patient a 55-year-old male who has a history of HTN, DM, obesity, and a previous diagnosis of coronary vasospasm after an extensive cardiac work-up who presents with chest pain similar to his previous episodes of coronary vasospasm. EKG nonischemic, unchanged. We will check a troponin, and given approximately 7 hours of pain prior to arrival should be sufficient to rule out an acute myocardial infarction. Will check CBC, CMP, lipase (given hx of pancreatitis), and chest xray to evaluate for other acute changes, however, this seems most consistent with his previous vasospasm history. He is on a long-acting nitrate, so we will give morphine for pain. 1831 No acute process identified on work-up. First dose of morphine did not improve his pain. It had been greater than 12 hours since his Imdur dose, so attempted nitroglycerin x3, without effect. Second dose of IV morphine did relieve pain. He has had a EGD and GI work-up in addition to his cardiac work-up. He is feeling much better and is comfortable with going home. Plan for his pulmonology consultation on 2126 Qing Disclaimer: Qing Disclaimer: This electronic medical record was generated, in whole or in part, using a voice recognition dictation system. Departure Departure Impression: Primary Impression: Chest pain Disposition: HOME / SELF CARE / HOMELESS Condition: STABLE Referrals: AUGIE CHACKO MD (PCP) Additional Instructions: Your labs did not show any evidence of damage to your heart. Your chest x-ray was stable from before. We did not find a reason for your recurrent chest pain today. Please follow-up with your program advisor as scheduled. If symptoms worsen you can always return to the emergency department for reevaluation. WERNER MCFADDEN MD Aug 04, 2021 18:33
[2021-08-04 18:40] LABS: CALCIUM 9.1 mg/dL (8.5-10.1); CREATININE 1.4 mg/dL (0.7-1.3); GFR 52.4; POTASSIUM 3.9 mmol/L (3.5-5.1)
[2021-08-04 18:44] LABS: ALBUMIN 3.6 g/dL (3.4-5.0); TOTAL BILIRUBIN 0.7 mg/dL (0.2-1.0); TOTAL PROTEIN 7.1 g/dL (6.4-8.2)
[2021-08-04] MEDS: NITROGLYCERIN SUBLINGUAL 0.4 MG BOTTLE OF 25. SL PRN ×3 (20:03→20:15)
[2021-08-04] MEDS ORDERED: MORPHINE SULFATE 10 MG/ML VIAL. IVP ONE (20:45)
[2021-08-04 21:30] VITALS: BP 150/72
--- NOTE | 2021-08-05 06:16 | EKG ---
[facility] [address] [place] [address] Test Date: 2021-08-04 Test Time: 18:02:16 Pat Name: ERIC MCCOY Department: Room: Gender: [employer]: : 1965 Requested By: WERNER MCFADDEN Order Number: [id number] Reading MD: Frank Cruz MD Measurements Intervals [place] Rate: 80 P: NE: QRS: 11 QRSD: 80 T: 19 QT: 358 QTc: 416 Interpretive Statements SR NON-SPECIFIC ST/T CHANGES Electronically Signed On 08-05-2021 8:58:32 CDT by Frank Cruz MD
== END 2021-08-04 21:42 | disposition home or self-care (01) ==
LOC: ER 17:56
DX: R07.89 Other chest pain (principal); E11.9 Type 2 diabetes mellitus without complications; I10 Essential (primary) hypertension; I25.2 Old myocardial infarction; Z95.5 Presence of coronary angioplasty implant and graft; Z88.1 Allergy status to other antibiotic agents; Z88.5 Allergy status to narcotic agent; Z88.6 Allergy status to analgesic agent; Z88.8 Allergy status to other drugs, medicaments and biological substances
CPT/HCPCS: 36415; 71045; 80053; 83690; 84484; 85025; 93005; 96374; 96376; 99285; J2270

== ENCOUNTER 2021-08-16 21:26 | Inpatient (IN) | payer MEDICARE, MEDICAID ==
[~2021-08-16] VITALS: Ht 182.9 cm; Wt 140.2 kg
[~2021-08-16 21:26] MED LIST changes: +CYCL10TA19 PO; -CYCL10TA2 PO; -LISI1TAB23 PO; +LISI1TAB35 PO; -SUMA20SP2 NS; +SUMA20SP8 NS
--- NOTE | 2021-08-16 22:07 | PHYS DOC ---
Past Medical History Past Medical History: Diabetes-Type II, Hypertension, Kidney Stone, [place], P ancreatitis, Other Additional Past Medical Histor: 'coronary spasm' (SID DARNELL EXAMINER OF CURRENCY) Past Surgical History: Cholecystectomy Additional Past Surgical Histo: Stents for kidney stones, lithotripsy x11, PTCA, nephrostomy (SID DARNELL EXAMINER OF CURRENCY) Smoking Status: Never Smoker Alcohol Use: Occasionally Drug Use: Marijuana (SID DARNELL EXAMINER OF CURRENCY) General Adult EDM: Chief Complaint: CHEST PAIN HPI: HPI: Patient is a 56 year old male who presents with 1300 today he began having left-sided chest heaviness that he states " feels like an elephant sitting on his chest" and states he has been coughing a lot that started today. He states he is having some dizziness and shortness of breath. States he did take a baby aspirin today. He states he has been coughing so hard that he is coughing up coffee-ground sputum. This all started today. States he did not take any nitroglycerin today. He denies nausea, vomiting, diarrhea, fever, syncope, focal weakness, numbness or tingling, vision change, abdominal pain. Patient has a history of angina, vasospasm angina, diabetes, [place], pancreatitis, migraine, hypertension, acute on chronic renal failure, smoking. Patient rates his discomfort a 9 out of 10. (SID DARNELL EXAMINER OF CURRENCY) Review of Systems: Review of Systems: Constitutional: Denies fever or chills. [] Eyes: Denies change in visual acuity. [] HENT: Denies nasal congestion or sore throat. [] Respiratory: + cough or +shortness of breath. [] Cardiovascular: + chest pain or denies edema. [] GI: Denies abdominal pain, nausea, vomiting, bloody stools or diarrhea. [] : Denies dysuria. [] Musculoskeletal: Denies back pain or joint pain. [] Integument: Denies rash. [] Neurologic: Denies headache, focal weakness or sensory changes. +Dizziness[] Endocrine: Denies polyuria or polydipsia. [] Lymphatic: Denies swollen glands. [] Psychiatric: Denies depression or anxiety. [] (SID DARNELL EXAMINER OF CURRENCY) Heart Score: C/O Chest Pain: Yes HEART Score for Chest Pain: HEART Score for Chest Pain Response (Comments) Value History Moderately Suspicious 1 ECG Nonspecific Repolarizatio 1 Age >45 - < 65 1 Risk Factors >3 Risk Factors or Hx CAD 2 Troponin < Normal Limit 0 Total 5 Risk Factors: Risk Factors: DM, Current or recent (<one month) smoker, HTN, HLP, family history of CAD, obesity. Risk Scores: Score 0 - 3: 2.5% MACE over next 6 weeks - Discharge Home Score 4 - 6: 20.3% MACE over next 6 weeks - Admit for Clinical Observation Score 7 - 10: 72.7% MACE over next 6 weeks - Early Invasive Strategies (BAFUS,SID M EXAMINER OF CURRENCY) Current Medications: Current Medications Medications (Trade) Dose Ordered Sig/Christa Start Time Stop Time Status Last Admin Dose Admin Nitroglycerin (Nitrostat) 0.4 mg PRN Q5MIN PRN 08/16/21 22:00 UNV (BAFUS,SID M EXAMINER OF CURRENCY) Allergies: Allergies: Allergies Coded Allergies Type Severity Reaction Last Updated Verified ascorbic acid Allergy Intermediate itching 08/04/21 Yes ciprofloxacin Allergy Intermediate hives 08/04/21 Yes codeine Allergy Intermediate hives 08/04/21 Yes ketorolac Allergy Intermediate swelling 08/04/21 Yes (BAFUS,SID M EXAMINER OF CURRENCY) Physical Exam: PE: Constitutional: Well developed, well nourished, no acute distress, non-toxic appearance. [] HENT: Normocephalic, atraumatic, bilateral external ears normal, oropharynx moist, no oral exudates, nose normal. [] Eyes: PERRLA, EOMI, conjunctiva normal, no discharge. [] Neck: Normal range of motion, no tenderness, supple, no stridor. [] Cardiovascular:Heart rate regular rhythm, no murmur [] Lungs & Thorax: Bilateral upper breath sounds clear lower diminished to auscultation [] Abdomen: Bowel sounds normal, soft, no tenderness, no masses, no pulsatile masses. [] Skin: Warm, dry, no erythema, no rash. [] Back: No tenderness, no CVA tenderness. [] Extremities: No tenderness, no cyanosis, no clubbing, ROM intact, no edema. [] Neurologic: Alert and oriented X 3, normal motor function, normal sensory function, no focal deficits noted. [] Psychologic: Affect normal, judgement normal, mood normal. [] (SID DARNELL APRN) EKG: EK and read by Dr. Garza is sinus rhythm and no STEMI (SID DARNELL APRN) Radiology/Procedures: Radiology/Procedures: [] (SID DARNELL APRN) Radiology/Procedures: PROCEDURE: PORTABLE CHEST 1V XR CHEST 1V 08/16/2021 10:48 PM INDICATION: Chest pain COMPARISON: 08/04/2021 TECHNIQUE: Portable frontal view of the chest is provided. FINDINGS: The cardiomediastinal silhouette is similar in appearance. Reticular interstitial changes are identified at the lung bases. No pleural effusions or pneumothorax. No suspicious osseous abnormality. IMPRESSION: Bibasilar predominant reticular interstitial changes are present, progressed from prior examination, as may be seen with interstitial pneumonitis versus interstitial edema. Electronically signed by: Rosalind Yañez MD (08/16/2021 11:58 PM) [facility] (AUGIE GARZA DO) Course & Med Decision Making: Course & Med Decision Making Pertinent Labs and Imaging studies reviewed. (See chart for details) See HPI. Alert and oriented x4. Ambulatory steady gait. Speaks in full clear sentences. Skin pink warm and dry. Abdomen is soft and nontender. Chest pain cannot be reproduced with palpation or movement of arms. Because he is saying that he is coughing up coffee-ground sputum I am not giving him more aspirin at this time. Vital signs are within normal limits. I ordered nitroglycerin for the patient. Patient states that he went to [facility] on Wednesday for the same thing that he is here for today. He states that they gave him 3 nitro and a couple shots of morphine but it was not helping. He states that he left AMA. 2250: After first nitro patient states he has no relief. Patient is receiving his second nitro. I have spoken to patient about admission and he agrees to this. His heart score is a 5. Patient reported off to Dr Garza. [] (SID DARNELL APRN) Dragon Disclaimer: Dragon Disclaimer: This electronic medical record was generated, in whole or in part, using a voice recognition dictation system. (SID DARNELL APRN) Departure Departure Impression: Primary Impression: Chest pain Qualified Codes: R07.9 - Chest pain, unspecified Disposition: ADMITTED INPATIENT Admitting Physician: TIERA (SID DARNELL APRN) Condition: STABLE Referrals: AUGIE CHACKO MD (PCP) Attending Signature Attending Signature I have reviewed the PA/MAIL PROCESSOR's note and plan of care. I was available for consultation as needed during the patient's visit in the emergency department. I agree with the clinical impression, plan, and disposition. (AUGIE GARZA DO) SID DARNELL APRN Aug 16, 2021 22:07 AUGIE GARZA DO Aug 17, 2021 02:48
[2021-08-16] MEDS: NITROGLYCERIN SUBLINGUAL 0.4 MG BOTTLE OF 25. SL PRN ×3 (22:30→23:22)
[2021-08-16 22:33] LABS: BASO # 0.1 x10^3/uL (0.0-0.2); BASO % 1 % (0-3); EOS # 0.2 x10^3/uL (0.0-0.7); EOS % 2 % (0-3); HEMATOCRIT 44.3 % (39.0-53.0); HEMOGLOBIN 15.2 g/dL (13.0-17.5); LYMPH # 2.6 x10^3/uL (1.0-4.8); LYMPH % 23 % (24-48); MEAN CORPUSCULAR HEMOGLOBIN 32 pg (25-35); MEAN CORPUSCULAR HGB CONC 34 g/dL (31-37); MEAN CORPUSCULAR VOLUME 92 fL (79-100); MONO # 0.9 x10^3/uL (0.0-1.1); MONO % 8 % (0-9); NEUT # 7.5 x10^3/uL (1.8-7.7); NEUT % 67 % (31-73); PLATELET COUNT 133 x10^3/uL (140-400); RED BLOOD COUNT 4.83 x10^6/uL (4.30-5.70); RED CELL DISTRIBUTION WIDTH 14.7 % (11.5-14.5); WHITE BLOOD COUNT 11.3 x10^3/uL (4.0-11.0)
[2021-08-16 22:42] LABS: PROTHROMBIN TIME PATIENT 13.7 SEC (11.7-14.0)
[2021-08-16 23:11] LABS: CREATININE 1.6 mg/dL (0.7-1.3); GFR 44.8; POTASSIUM 3.8 mmol/L (3.5-5.1)
[2021-08-16 23:17] LABS: ALBUMIN 3.5 g/dL (3.4-5.0); ALBUMIN/GLOBULIN RATIO 0.9 (1.0-1.7); MAGNESIUM 1.8 mg/dL (1.8-2.4); TOTAL BILIRUBIN 0.6 mg/dL (0.2-1.0); TOTAL PROTEIN 7.2 g/dL (6.4-8.2)
--- NOTE | 2021-08-17 00:01 | RAD ---
XR CHEST 1V 08/16/2021 10:48 PM INDICATION: Chest pain COMPARISON: 08/04/2021 TECHNIQUE: Portable frontal view of the chest is provided. FINDINGS: The cardiomediastinal silhouette is similar in appearance. Reticular interstitial changes are identif ied at the lung bases. No pleural effusions or pneumothorax. No suspicious osseous abnormality. IMPRESSION: Bibasilar predominant reticular interstitial changes are present, progressed from prior examination, as may be seen with interstitial pneumonitis versus interstitial edema. Electronically signed by: Rosalind Yañez MD (08/16/2021 11:58 PM) [facility]
[2021-08-17] MEDS: fentaNYL PF VIAL 100 MCG/2 ML VIAL IV PRN ×7 (00:42→23:46)
[2021-08-17 01:54] VITALS: BP 123/67
[2021-08-17] MEDS: NITROGLYCERIN SUBLINGUAL 0.4 MG BOTTLE OF 25. SL PRN (03:00)
[2021-08-17] MEDS ORDERED: ISOS30TA68 PO (03:55)
[2021-08-17] MEDS ORDERED: VENTOLIN HFA18 GM INH (03:59)
[2021-08-17] MEDS ORDERED: META-21 PO (04:12)
[2021-08-17] MEDS ORDERED: DESV50TA PO (04:12)
--- NOTE | 2021-08-17 05:22 | EKG ---
[facility] [address] [place] [address] Test Date: 2021-08-16 Test Time: 21:51:24 Pat Name: ERIC MCCOY Department: Room: [facility] Gender: M Vamp Creaser: : 1965 Requested By: SID DARNELL Order Number: [id number] Reading MD: Manuel Campbell Measurements Intervals [place] Rate: 85 P: 48 [place]: 168 QRS: -8 QRSD: 76 T: 25 QT: 346 QTc: 412 Interpretive Statements SINUS RHYTHM LEFT ATRIAL ABNORMALITY LEFTWARD AXIS QRS(T) CONTOUR ABNORMALITY CONSISTENT WITH ANTEROSEPTAL INFARCT AGE UNDETERMINED ABNORMAL ECG Electronically Signed On 08-17-2021 12:41:45 CDT by Manuel Campbell
[2021-08-17 07:00] VITALS: BP_SYST 115; BP_SYST 131; BP_DIAS 68; BP_DIAS 73
--- NOTE | 2021-08-17 09:15 | PDOC1 ---
History and Physical Date of Admission Date of Admission DATE: 08/17/21 TIME: 09:14 Source Source: Chart review, Patient History of Present Illness History of Present Illness MR. Szymanski is a 56 year old male admit from ER with acute chest pain with pressure. Yesterday, acute left-sided chest pain with " felt like an elephant sitting on his chest" with coughing and shortness of breath He states he is having some dizziness and shortness of breath. States he did take a baby aspirin today. He states he has been coughing so hard that he is coughing up coffee-ground sputum. This all started today. States he did not take any nitroglycerin today. He denies nausea, vomiting, diarrhea, fever, syncope, focal weakness, numbness or tingling, vision change, abdominal pain. Patient has a history of angina, vasospasm angina, diabetes, WI, pancreatitis, migraine, hypertension, acute on chronic renal failure, smoking. Patient rates his discomfort a 9 out of 10. Past Medical History Cardiovascular: HTN, WI, Other Musculoskeletal: low back pain, Osteoarthritis, Weakness Renal/: Other Endocrine: Diabetes Past Surgical History Past Surgical History: Cholecystectomy, Other Family History Family History: Heart Disease Social History Smoke: <1 pack per day ALCOHOL: occassional Drugs: Marijuana Current Problem List Problem List Problems Medical Problems: (1) Chest pain Status: Acute Current Medications Current Medications Current Medications Nitroglycerin (Nitrostat) 0.4 mg PRN Q5MIN PRN SL CHEST PAIN Last administered on 08/17/21at 03:00; Start 08/16/21 at 22:00 Fentanyl Citrate (Fentanyl 2ml Vial) 50 mcg PRN Q2HR PRN IV PAIN Last ad ministered on 08/17/21at 08:54; Start 08/17/21 at 00:15 Active Scripts Active Aspirin 81 Mg Tab.chew 1 Tab PO DAILY 30 Days Reported Pristiq Er (Desvenlafaxine Succinate) 50 Mg Tab.er.24h 1 Tab PO DAILY Skelaxin (Metaxalone) 800 Mg Tablet 800 Mg PO PRN TID PRN Ventolin Hfa Inhaler (Albuterol Sulfate) 18 Gm Hfa.aer.ad 2 Puff INH QID Isosorbide Mononitrate Er (Isosorbide Mononitrate) 30 Mg Tab.er.24h 90 Mg PO DAILY Protonix (Pantoprazole Sodium) 20 Mg Tablet.dr 20 Mg PO BID Atorvastatin Calcium 10 Mg Tablet 1 Tab PO QHS Klor-Con M20 (Potassium Chloride) 20 Meq Tab.er.prt 20 Meq PO DAILY Diazepam 10 Mg Tablet 1 Tab PO BID Levothyroxine Sodium 125 Mcg Tablet 125 Mcg PO DAILY06 Mirtazapine 7.5 Mg Tablet 1 Tab PO QHS Allergies Allergies: Coded Allergies: ascorbic acid (Verified Allergy, Intermediate, itching, 08/04/21) ciprofloxacin (Verified Allergy, Intermediate, hives, 08/04/21) codeine (Verified Allergy, Intermediate, hives, 08/04/21) TOLERATES MORPHINE ketorolac (Verified Allergy, Intermediate, swelling, 08/04/21) tolerates ibuprofen ROS General: YES: Chills, Fatigue, Malaise PSYCHOLOGICAL ROS: YES: Sleep disturbances; No: Anxiety, Behavioral Disorder, Concentration difficultie, Decreased libido, Depression, Disorientation, Hallucinations, Hostility, Irritablity, Memory difficulties, Mood Swings, Obsessive thoughts, Physical abuse, Sexual abuse, Suicidal ideation, Other Eyes: No Blurry vision, No Decreased vision, No Double vision, No Dry eyes, No Excessive tearing, No Eye Pain, No Itchy Eyes, No Loss of vision, No Photophobia, No Scotomata, No Uses contacts, No Uses glasses, No Other HEENT: YES: Heacaches Hematological and Lymphatic: No: Bleeding Problems, Blood Clots, Blood Transfusions, Brusing, Night Sweats, Pallor, Swollen Lymph Nodes, Other Breast: No New/Changing Breast Lumps, No Nipple changes, No Nipple discharge, No Other Respiratory: YES: Cough, Shortness of breath, SOB with excertion; No: Hemoptysis, Orthopnea, Pleuritic Pain, Sputum Changes, Stridor, Tachypnea, Wheezing, Other Cardiovascular: yes Chest Pain; No Palpitations, No Orthopnea, No Paroxysmal Noc. Dyspnea, No Edema, No Lt Headedness, No Other Gastrointestinal: Yes Nausea; No Vomiting, No Abdominal Pain, No Diarrhea, No Constipation, No Melena, No Hematochezia, No Other Genitourinary: No Dysuria, No Frequency, No Incontinence, No Hematuria, No Retention, No Discharge, No Urgency, No Pain, No Flank Pain, No Other, No , No , No , No , No , No , No Musculoskeletal: Yes Joint Stiffness, Yes Muscular Weakness; No Gait Disturbance, No Joint Pain, No Joint Swelling, No Pain In:, No Swelling In:, No Other Neurological: Yes Impaired Coord/balance; No Behavorial Changes, No Bowel/Bladder ControlChng, No Confusion, No Dizziness, No Gait Disturbance, No Headaches, No Memory Loss, No Numbness/Tingling, No Seizures, No Speech Problems, No Tremors, No Visual Changes, No Weakness, No Other Skin: No Dry Skin, No Eczema, No Hair Changes, No Lumps, No Mole Changes, No Mottling, No Nail Changes, No Pruritus, No Rash, No Skin Lesion Changes, No Other, No Acne Physical Exam General: Alert, Oriented X3, Cooperative, mild distress HEENT: Atraumatic, EOMI, Mucous membr. moist/pink Lungs: Clear to auscultation Heart: S1S2, RRR, no murmurs Abdomen: Soft, No tenderness Rectal Exam: not examined Extremities: No cyanosis, No edema Skin: No rashes, No breakdown, No significant lesion Neuro: Normal speech, Normal tone Psych/Mental Status: Mental status NL Vitals Vitals Vital Signs Date Time Temp Pulse Resp B/P (MAP) Pulse Ox O2 Delivery O2 Flow Rate FiO2 08/17/21 03:00 63 Nasal Cannula 2.0 08/17/21 03:00 123/67 08/17/21 01:54 98.3 21 98 98.3 Labs Labs Laboratory Tests Test 08/16/21 22:22 08/16/21 22:50 08/17/21 03:05 08/17/21 03:40 White Blood Count 11.3 x10^3/uL (4.0-11.0) Red Blood Count 4.83 x10^6/uL (4.30-5.70) Hemoglobin 15.2 g/dL (13.0-17.5) Hematocrit 44.3 % (39.0-53.0) Mean Corpuscular Volume 92 fL (79-100) Mean Corpuscular Hemoglobin 32 pg (25-35) Mean Corpuscular Hemoglobin Concent 34 g/dL (31-37) Red Cell Distribution Width 14.7 % (11.5-14.5) Platelet Count 133 x10^3/uL (140-400) Neutrophils (%) (Auto) 67 % (31-73) Lymphocytes (%) (Auto) 23 % (24-48) Monocytes (%) (Auto) 8 % (0-9) Eosinophils (%) (Auto) 2 % (0-3) Basophils (%) (Auto) 1 % (0-3) Neutrophils # (Auto) 7.5 x10^3/uL (1.8-7.7) Lymphocytes # (Auto) 2.6 x10^3/uL (1.0-4.8) Monocytes # (Auto) 0.9 x10^3/uL (0.0-1.1) Eosinophils # (Auto) 0.2 x10^3/uL (0.0-0.7) Basophils # (Auto) 0.1 x10^3/uL (0.0-0.2) Prothrombin Time 13.7 SEC (11.7-14.0) Prothromb Time International Ratio 1.1 (0.8-1.1) Activated Partial Thromboplast Time 31 SEC (24-38) Sodium Level 139 mmol/L (136-145) Potassium Level 3.8 mmol/L (3.5-5.1) Chloride Level 104 mmol/L (98-107) Carbon Dioxide Level 23 mmol/L (21-32) Anion Gap 12 (6-14) Blood Urea Nitrogen 20 mg/dL (8-26) Creatinine 1.6 mg/dL (0.7-1.3) Estimated GFR (Cockcroft-Gault) 44.8 BUN/Creatinine Ratio 13 (6-20) Glucose Level 232 mg/dL (70-99) Calcium Level 9.0 mg/dL (8.5-10.1) Magnesium Level 1.8 mg/dL (1.8-2.4) Total Bilirubin 0.6 mg/dL (0.2-1.0) Aspartate Amino Transf (AST/SGOT) 42 U/L (15-37) Alanine Aminotransferase (ALT/SGPT) 76 U/L (16-63) Alkaline Phosphatase 202 U/L (46-116) Troponin I High Sensitivity 7 ng/L (4-75) 9 ng/L (4-75) AP-Uej-Q-Type Natriuretic Peptide 17 pg/mL (0-124) Total Protein 7.2 g/dL (6.4-8.2) Albumin 3.5 g/dL (3.4-5.0) Albumin/Globulin Ratio 0.9 (1.0-1.7) Lipase 98 U/L (73-393) SARS-CoV-2 Antigen (Rapid) Negative (NEGATIVE) Test 08/17/21 08:10 08/17/21 09:05 Troponin I High Sensitivity 8 ng/L (4-75) Glucose (Fingerstick) 116 mg/dL (70-99) Laboratory Tests Test 08/16/21 22:22 08/16/21 22:50 08/17/21 03:05 08/17/21 03:40 White Blood Count 11.3 x10^3/uL (4.0-11.0) Red Blood Count 4.83 x10^6/uL (4.30-5.70) Hemoglobin 15.2 g/dL (13.0-17.5) Hematocrit 44.3 % (39.0-53.0) Mean Corpuscular Volume 92 fL (79-100) Mean Corpuscular Hemoglobin 32 pg (25-35) Mean Corpuscular Hemoglobin Concent 34 g/dL (31-37) Red Cell Distribution Width 14.7 % (11.5-14.5) Platelet Count 133 x10^3/uL (140-400) Neutrophils (%) (Auto) 67 % (31-73) Lymphocytes (%) (Auto) 23 % (24-48) Monocytes (%) (Auto) 8 % (0-9) Eosinophils (%) (Auto) 2 % (0-3) Basophils (%) (Auto) 1 % (0-3) Neutrophils # (Auto) 7.5 x10^3/uL (1.8-7.7) Lymphocytes # (Auto) 2.6 x10^3/uL (1.0-4.8) Monocytes # (Auto) 0.9 x10^3/uL (0.0-1.1) Eosinophils # (Auto) 0.2 x10^3/uL (0.0-0.7) Basophils # (Auto) 0.1 x10^3/uL (0.0-0.2) Prothrombin Time 13.7 SEC (11.7-14.0) Prothromb Time International Ratio 1.1 (0.8-1.1) Activated Partial Thromboplast Time 31 SEC (24-38) Sodium Level 139 mmol/L (136-145) Potassium Level 3.8 mmol/L (3.5-5.1) Chloride Level 104 mmol/L (98-107) Carbon Dioxide Level 23 mmol/L (21-32) Anion Gap 12 (6-14) Blood Urea Nitrogen 20 mg/dL (8-26) Creatinine 1.6 mg/dL (0.7-1.3) Estimated GFR (Cockcroft-Gault) 44.8 BUN/Creatinine Ratio 13 (6-20) Glucose Level 232 mg/dL (70-99) Calcium Level 9.0 mg/dL (8.5-10.1) Magnesium Level 1.8 mg/dL (1.8-2.4) Total Bilirubin 0.6 mg/dL (0.2-1.0) Aspartate Amino Transf (AST/SGOT) 42 U/L (15-37) Alanine Aminotransferase (ALT/SGPT) 76 U/L (16-63) Alkaline Phosphatase 202 U/L (46-116) Troponin I High Sensitivity 7 ng/L (4-75) 9 ng/L (4-75) JG-Yqz-X-Type Natriuretic Peptide 17 pg/mL (0-124) Total Protein 7.2 g/dL (6.4-8.2) Albumin 3.5 g/dL (3.4-5.0) Albumin/Globulin Ratio 0.9 (1.0-1.7) Lipase 98 U/L (73-393) SARS-CoV-2 Antigen (Rapid) Negative (NEGATIVE) Test 08/17/21 08:10 08/17/21 09:05 Troponin I High Sensitivity 8 ng/L (4-75) Glucose (Fingerstick) 116 mg/dL (70-99) VTE Prophylaxis Ordered VTE Prophylaxis Devices: Yes VTE Pharmacological Prophylaxi: Yes Assessment/Plan Assessment/Plan acute Chest pain hx of Coronary vasospasm , no CAD, prior clean cath at OSH acute bronchitis or pneumonitis, with basilar haziness on CXR - will get nonc ontrast CT obese, BMI 41 weakness and debility, poor mobilty, mult falls smoker probable JOSH Dm2 htn Justifications for Admission Other Justification HARRISON CASTILLO MD Aug 17, 2021 09:15
[2021-08-17] MEDS ORDERED: AZITHROMYCIN 250 MG TABLET. PO ONE (10:15)
[2021-08-17] MEDS: IPRATRPIUM/ALBUTEROL 0.5/2.5MG 3 ML NEBU. NEB SCH ×3 (10:27→20:12)
[2021-08-17] MEDS: cefTRIAXone IV Push 1 GM VIAL. IVP SCH (10:44)
[2021-08-17 11:00] VITALS: BP 128/60
--- NOTE | 2021-08-17 12:21 | CONS ---
DATE OF CONSULTATION: 08/17/2021 REASON FOR CONSULTATION: I was asked to see this 56-year-old gentleman for abnormal chest x-ray, chest pain. HISTORY OF PRESENT ILLNESS: He has history of [id number] smoking, continues to smoke about half a pack per day. He did see a dull coat mill operator at [facility] a few days ago. They did PFTs, which did not show COPD. Sleep study was ordered. He has gained about 100 pounds over the past 2-4 years. He presented to the emergency room with chest pain. He has had chest pain on and off. He has had previous chest pain secondary to coronary artery vasospasm. He feels it is the same chest pain. He has had cough with coffee-ground sputum (dark sputum) for the past couple of days. He has had wheezing. He denies fever or chills. He does have shortness of breath with activity but it is not worse than usual. He did receive his COVID vaccine in January of this year. PAST MEDICAL HISTORY: Diabetes mellitus, hypertension, kidney stone, pancreatitis, cholecystectomy, stent for kidney stones. He has not had cardiac stent. SOCIAL HISTORY: He does have history of [id number] smoking, continues to smoke half a pack per day. 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 He does drink once per month. FAMILY HISTORY: Hypertension. MEDICATIONS: He is on fentanyl and nitroglycerin. ALLERGIES: ASCORBIC ACID, CIPRO, CODEINE, KETOROLAC. REVIEW OF SYSTEMS: As mentioned as above. His significant other is at bedside. She states that he has loud snoring. Other systems otherwise negative. PHYSICAL EXAMINATION: GENERAL: This is an obese gentleman. His BMI is 41.1. VITAL SIGNS: His O2 saturation on 2 liters of oxygen is 96%, respiratory rate 20, heart rate 60, blood pressure 131/68, temperature 98.9. HEENT: Normocephalic, atraumatic. Pupils equal, round, and reactive to light. There is shallow oropharynx. He has poor dentition. NECK: Short, thick. CARDIOVASCULAR: Regular rate and rhythm. PMI is nondisplaced. CHEST: Inspection is normal. LUNGS: There is few end expiratory wheezing. There are bilateral diminished breath sounds, dullness at the bases. ABDOMEN: Soft and obese. Bowel sounds are good. EXTREMITIES: There is trace edema. LYMPHATICS: There is no lymphadenopathy. NEUROLOGIC: Alert and oriented. LABORATORY DATA: I reviewed the following lab data: Chest x-ray shows basilar reticular interstitial changes, worse than before. WBC 11.3, hemoglobin 15.2, platelets 133. Rapid COVID negative. Sodium 139, potassium 3.8, chloride 104, CO2 23, BUN 20, creatinine 1.6, glucose 132, AST 42, ALT 76, alkaline phosphatase 202. IMPRESSION: 1. Chest pain. Did improve with nitroglycerin. 2. Coronary vasospasm versus acute bronchospasm versus acute bronchitis/pneumonia/pneumonitis, rule out thromboembolic disease. 3. Abnormal chest x-ray. 4. Acute kidney injury. 5. Obesity, suspect obstructive sleep apnea-hypopnea syndrome. 6. Reportedly, his PFTs few days ago did not show chronic obstructive pulmonary disease. 7. Smoker. 8. Diabetes mellitus. 9. Hypertension. 10. Elevated liver function tests. PLAN AND RECOMMENDATIONS: 1. Titrate FiO2 to keep O2 saturation at 92%. 2. CT of the chest is ordered without contrast due to his creatinine of 1.6. Unfortunately, I cannot order a CT angiogram. We will do lower extremity venous Doppler. If his creatinine normalizes, we may need to do CT angiogram. 3. When his COVID-19 PCR is back, we will start him on bronchodilator and inhaled corticosteroid (DuoNeb and Pulmicort). 4. Start Rocephin. 5. Cannot start doxycycline for atypical infection as his liver function tests are elevated. I will start him on azithromycin (Z-Royal). 6. Cardiology may consider cardiology consult. 7. Lose weight and exercise. 8. I had a long discussion with him regarding the smoking cessation. I have advised him to stop smoking forever. 9. He has poor dentition, which will need to be addressed as an outpatient. Thank you very much for allowing me to participate in the care of this very nice gentleman. I have discussed the findings and recommendations with him and his significant other. They understood and agreed to proceed with the plan. KODI DR: Teja TID: [id number]
[2021-08-17] MEDS: NICOTINE 21MG PATCH. TD SCH (14:09)
[2021-08-17 15:00] VITALS: BP 126/55
[2021-08-17] MEDS ORDERED: AMLO-186 PO (15:06)
[2021-08-17] MEDS ORDERED: PREG-9 PO (15:08)
[2021-08-17] MEDS ORDERED: METH-561 PO (15:12)
[2021-08-17] MEDS ORDERED: INSU500I SQ ×2 (15:14→15:18)
[2021-08-17] MEDS ORDERED: METHOCARBAMOL 500 MG TABLET PO PRN (15:30)
[2021-08-17] MEDS: DESVENLAFAXINE 25 MG TAB.ER.24H PO SCH (16:09)
[2021-08-17] MEDS: ASPIRIN CHEWABLE 81 MG TABLET. PO SCH (16:10)
[2021-08-17] MEDS: PANTOPRAZOLE 40 MG TABLET.DR. PO SCH ×2 (16:10→16:14)
[2021-08-17] MEDS: ISOSORBIDE MONONITRATE ER 30 MG TAB.ER.24H PO SCH (16:12)
[2021-08-17] MEDS ORDERED: INSULIN LISPRO 300 UNITS/3 ML VIAL. SQ SCH (17:00)
[2021-08-17 19:00] VITALS: BP 123/54
[2021-08-17] MEDS: ALBUTEROL SULFATE 2.5 MG/3 ML NEBU. NEB SCH (20:00)
[2021-08-17] MEDS: BUDESONIDE 0.5 MG/2 ML NEBU. NEB SCH (20:12)
[2021-08-17] MEDS: CYCLOBENZAPRINE 10 MG TABLET. PO PRN (20:17)
[2021-08-17] MEDS: PREGABALIN 75 MG CAPSULE PO SCH (20:17)
[2021-08-17] MEDS: LACTOBACILLUS RHAMNOSUS GG 1 CAPSULE. PO SCH (20:17)
[2021-08-17] MEDS: diazePAM 5 MG TABLET PO SCH (20:17)
[2021-08-17] MEDS: ATORVASTATIN CALCIUM 10 MG TABLET. PO SCH (20:17)
[2021-08-17] MEDS: MIRTAZAPINE 7.5 MG TABLET. PO SCH (20:17)
--- NOTE | 2021-08-17 21:35 | RAD ---
Bilateral lower extremity venous Doppler dated 08/17/2021 9:32 PM COMPARISON: none. CLINICAL INDICATION: Edema Reason: le edema sob / Spl. Instructions: / History: FINDINGS: Grayscale, color-flow and spectral waveform analysis performed to include the deep venous system of b ilateral lower extremity. There is normal compressibility, phasicity and augmentation of flow through out. No filling defects are seen. IMPRESSION: No evidence of bilateral lower extremity deep vein thrombosis. Electronically signed by: Fer Waddell MD (08/17/2021 9:33 PM) TANYA
[2021-08-17 23:00] VITALS: BP 119/62
[2021-08-18 03:00] VITALS: BP 116/45
[2021-08-18] MEDS: LEVOTHYROXINE 125 MCG TABLET PO SCH (06:29)
[2021-08-18 07:00] VITALS: BP 119/57
[2021-08-18] MEDS: IPRATRPIUM/ALBUTEROL 0.5/2.5MG 3 ML NEBU. NEB SCH ×4 (07:55→20:33)
[2021-08-18] MEDS: BUDESONIDE 0.5 MG/2 ML NEBU. NEB SCH ×2 (07:55→20:33)
[2021-08-18] MEDS ORDERED: INSULIN LISPRO 300 UNITS/3 ML VIAL. SQ SCH (08:00)
[2021-08-18] MEDS: ALBUTEROL SULFATE 2.5 MG/3 ML NEBU. NEB SCH ×4 (08:00→20:36)
--- NOTE | 2021-08-18 09:05 | PDOC ---
PULMONARY PROGRESS NOTES DATE: 08/18/21 TIME: 09:05 Subjective Patient feels better, not more short of breath, off of oxygen Vitals Vital Signs Date Time Temp Pulse Resp B/P (MAP) Pulse Ox O2 Delivery O2 Flow Rate FiO2 08/18/21 07:56 97 Nasal Cannula 2.0 08/18/21 07:00 98.2 74 18 119/57 (77) 98.2 ROS: No Nausea, No Chest Pain, No Abdominal Pain, No Increase Cough Lungs: Clear Cardiovascular: S1, S2 Abdomen: Soft, Other (Obese) Neuro Exam: Alert Extremities: No Edema Skin: Warm Labs Laboratory Tests Test 08/16/21 22:22 08/16/21 22:50 08/17/21 03:05 08/17/21 03:40 White Blood Count 11.3 x10^3/uL (4.0-11.0) Red Blood Count 4.83 x10^6/uL (4.30-5.70) Hemoglobin 15.2 g/dL (13.0-17.5) Hematocrit 44.3 % (39.0-53.0) Mean Corpuscular Volume 92 fL (79-100) Mean Corpuscular Hemoglobin 32 pg (25-35) Mean Corpuscular Hemoglobin Concent 34 g/dL (31-37) Red Cell Distribution Width 14.7 % (11.5-14.5) Platelet Count 133 x10^3/uL (140-400) Neutrophils (%) (Auto) 67 % (31-73) Lymphocytes (%) (Auto) 23 % (24-48) Monocytes (%) (Auto) 8 % (0-9) Eosinophils (%) (Auto) 2 % (0-3) Basophils (%) (Auto) 1 % (0-3) Neutrophils # (Auto) 7.5 x10^3/uL (1.8-7.7) Lymphocytes # (Auto) 2.6 x10^3/uL (1.0-4.8) Monocytes # (Auto) 0.9 x10^3/uL (0.0-1.1) Eosinophils # (Auto) 0.2 x10^3/uL (0.0-0.7) Basophils # (Auto) 0.1 x10^3/uL (0.0-0.2) Prothrombin Time 13.7 SEC (11.7-14.0) Prothromb Time International Ratio 1.1 (0.8-1.1) Activated Partial Thromboplast Time 31 SEC (24-38) Sodium Level 139 mmol/L (136-145) Potassium Level 3.8 mmol/L (3.5-5.1) Chloride Level 104 mmol/L (98-107) Carbon Dioxide Level 23 mmol/L (21-32) Anion Gap 12 (6-14) Blood Urea Nitrogen 20 mg/dL (8-26) Creatinine 1.6 mg/dL (0.7-1.3) Estimated GFR (Cockcroft-Gault) 44.8 BUN/Creatinine Ratio 13 (6-20) Glucose Level 232 mg/dL (70-99) Calcium Level 9.0 mg/dL (8.5-10.1) Magnesium Level 1.8 mg/dL (1.8-2.4) Total Bilirubin 0.6 mg/dL (0.2-1.0) Aspartate Amino Transf (AST/SGOT) 42 U/L (15-37) Alanine Aminotransferase (ALT/SGPT) 76 U/L (16-63) Alkaline Phosphatase 202 U/L (46-116) Troponin I High Sensitivity 7 ng/L (4-75) 9 ng/L (4-75) UH-Sdh-C-Type Natriuretic Peptide 17 pg/mL (0-124) Total Protein 7.2 g/dL (6.4-8.2) Albumin 3.5 g/dL (3.4-5.0) Albumin/Globulin Ratio 0.9 (1.0-1.7) Lipase 98 U/L (73-393) SARS-CoV-2 RNA (BHARATHI) Negative (Negative) SARS-CoV-2 Antigen (Rapid) Negative (NEGATIVE) Test 08/17/21 08:10 08/17/21 09:05 08/17/21 12:32 08/17/21 16:56 Troponin I High Sensitivity 8 ng/L (4-75) Glucose (Fingerstick) 116 mg/dL (70-99) 184 mg/dL (70-99) 199 mg/dL (70-99) Test 08/17/21 19:58 08/18/21 08:14 Glucose (Fingerstick) 212 mg/dL (70-99) 199 mg/dL (70-99) Laboratory Tests Test 08/17/21 12:32 08/17/21 16:56 08/17/21 19:58 08/18/21 08:14 Glucose (Fingerstick) 184 mg/dL (70-99) 199 mg/dL (70-99) 212 mg/dL (70-99) 199 mg/dL (70-99) Medications Active Scripts Medications Dose Route/Sig Max Daily Dose Days Date Category Humulin R U-500 Kwikpen (Insulin Regular, Human) 500 Unit/1 Ml Insuln.pen 55 Unit SQ DAILYBFRSUP 08/17/21 Reported Humulin R U-500 Kwikpen (Insulin Regular, Human) 500 Unit/1 Ml Insuln.pen 95 Unit SQ DAILY08 08/17/21 Reported Methocarbamol 500 Mg Tablet 500 Mg PO TID PRN PRN 08/17/21 Reported Lyrica (Pregabalin) 75 Mg Capsule 75 Mg PO BID 08/17/21 Reported Amlodipine Besylate 5 Mg Tablet 5 Mg PO DAILY08 08/17/21 Reported Pristiq Er (Desvenlafaxine Succinate) 50 Mg Tab.er.24h 1 Tab PO DAILY 08/17/21 Reported Skelaxin (Metaxalone) 800 Mg Tablet 800 Mg PO PRN TID PRN 08/17/21 Reported Ventolin Hfa Inhaler (Albuterol Sulfate) 18 Gm Hfa.aer.ad 2 Puff INH QID 08/17/21 Reported Isosorbide Mononitrate Er (Isosorbide Mononitrate) 30 Mg Tab.er.24h 90 Mg PO DAILY 08/17/21 Reported Protonix (Pantoprazole Sodium) 20 Mg Tablet.dr 20 Mg PO BID 07/17/21 Reported Atorvastatin Calcium 10 Mg Tablet 1 Tab PO QHS 03/27/21 Reported Klor-Con M20 (Potassium Chloride) 20 Meq Tab.er.prt 20 Meq PO DAILY 03/27/21 Reported Diazepam 10 Mg Tablet 1 Tab PO BID 03/27/21 Reported Aspirin 81 Mg Tab.chew 1 Tab PO DAILY 30 01/04/21 Rx Levothyroxine Sodium 125 Mcg Tablet 125 Mcg PO DAILY06 01/03/21 Reported Mirtazapine 7.5 Mg Tablet 1 Tab PO QHS 01/03/21 Reported Impression . IMPRESSION: 1. Chest pain. Per cardiology 2. Acute exacerbation of COPD 3. Abnormal chest x-ray. 4. Acute kidney injury. 5. Obesity, suspect obstructive sleep apnea-hypopnea syndrome. 6. Reportedly, his PFTs few days ago did not show chronic obstructive pulmonary disease. 7. Smoker. 8. Diabetes mellitus. 9. Hypertension. 10. Elevated liver function tests. 11. Negative venous Dopplers of the lower extremities 12. Groundglass opacities on CT compatible with inflammation/COPD exacerbation Impression: 1. Minimal left lower lobe apical segment groundglass attenuation may represent infectious or inflammatory process. Otherwise primarily linear multifocal opacities resemble atelectasis. Superimposed infection or inflammation not excluded. 2. Heavy subcarinal and left hilar macie calcifications consistent with calcified granulomatous disease. 3. Mild circumferential thickening of the distal esophagus. Reiterate recommendation for endoscopic evaluation if not already performed. 4. Hypodensity liver compatible steatosis. Mildly enlarged 15 cm spleen. Plan . Updated 08/18 Treat acute exacerbation of COPD Follow-up in my office once discharged Follow cardiology input Venous Dopplers negative, doubt PE, my clinical suspicion is low 08/17 PLAN AND RECOMMENDATIONS: 1. Titrate FiO2 to keep O2 saturation at 92%. 2. CT of the chest is ordered without contrast due to his creatinine of 1.6. Unfortunately, I cannot order a CT angiogram. We will do lower extremity venous Doppler. If his creatinine normalizes, we may need to do CT angiogram. 3. When his COVID-19 PCR is back, we will start him on bronchodilator and inhaled corticosteroid (DuoNeb and Pulmicort). 4. Start Rocephin. 5. Cannot start doxycycline for atypical infection as his liver function tests are elevated. I will start him on azithromycin (Z-Royal). 6. Cardiology may consider cardiology consult. 7. Lose weight and exercise. 8. I had a long discussion with him regarding the smoking cessation. I have advised him to stop smoking forever. 9. He has poor dentition, which will need to be addressed as an outpatient. Thank you very much for allowing me to participate in the care of this very nice gentleman. I have discussed the findings and recommendations with him and his significant other. They understood and agreed to proceed with the plan. MEHRAN SHAH MD Aug 18, 2021 09:05
--- NOTE | 2021-08-18 09:36 | RAD ---
CT THORAX WO History: Basilar pneumonitis. Comparison: X-ray 08/17/2021. CT chest 04/04/2021. Technique: Noncontrast CT of the chest. Findings: Assessment is limited by lack of IV contrast. Cardiovascular: Mild ossification of the aortic arch and great vessels. Normal heart size. Mild coron karon artery calcification. No pericardial effusion. Mediastinum and nathalia: Normal thyroid. Heavily calcified subcarinal and left hilar lymph nodes. Mild c ircumferential thickening of the distal esophagus. Airways, lungs and pleura: Airways are clear. There are streaky opacities in the right upper lobe adj acent to the fissures. Mild platelike linear opacities in the lingula. Hazy superior segment left low er lobe airspace opacity and linear left basilar opacities. There is minimal emphysematous change. No significant pulmonary nodules. Upper abdomen: Diffuse hypodensity liver compatible steatosis. Completely collapsed versus surgically absent gallbladder. Mildly enlarged 15 cm spleen. Osseous structures and soft tissues: Within normal limits for age. Impression: 1. Minimal left lower lobe apical segment groundglass attenuation may represent infectious or inflam matory process. Otherwise primarily linear multifocal opacities resemble atelectasis. Superimposed in fection or inflammation not excluded. 2. Heavy subcarinal and left hilar macie calcifications consistent with calcified granulomatous dise ase. 3. Mild circumferential thickening of the distal esophagus. Reiterate recommendation for endoscopic evaluation if not already performed. 4. Hypodensity liver compatible steatosis. Mildly enlarged 15 cm spleen. ------ Exposure: One or more of the following individualized dose reduction techniques were utilized for thi s examination: 1. Automated exposure control 2. Adjustment of the mA and/or kV according to patient size 3. Use of iterative reconstruction technique. Electronically signed by: José Antonio Szymanski MD (08/18/2021 9:33 AM) [id number]
[2021-08-18] MEDS: NICOTINE 21MG PATCH. TD SCH (09:53)
[2021-08-18] MEDS: DESVENLAFAXINE 25 MG TAB.ER.24H PO SCH (09:54)
[2021-08-18] MEDS: diazePAM 5 MG TABLET PO SCH ×2 (09:54→19:48)
[2021-08-18] MEDS: ASPIRIN CHEWABLE 81 MG TABLET. PO SCH (09:54)
[2021-08-18] MEDS: PREGABALIN 75 MG CAPSULE PO SCH ×2 (09:54→19:49)
[2021-08-18] MEDS: POTASSIUM CHLORIDE 20 MEQ TABLET.ER. PO SCH (09:55)
[2021-08-18] MEDS: ISOSORBIDE MONONITRATE ER 30 MG TAB.ER.24H PO SCH (09:55)
[2021-08-18] MEDS: AZITHROMYCIN 250 MG TABLET. PO SCH (09:55)
[2021-08-18] MEDS: LACTOBACILLUS RHAMNOSUS GG 1 CAPSULE. PO SCH ×2 (09:55→19:48)
[2021-08-18] MEDS: PANTOPRAZOLE 40 MG TABLET.DR. PO SCH ×2 (09:56→16:34)
[2021-08-18 10:30] LABS: CALCIUM 8.6 mg/dL (8.5-10.1); CREATININE 1.5 mg/dL (0.7-1.3); GFR 48.2; MAGNESIUM 1.9 mg/dL (1.8-2.4); POTASSIUM 3.7 mmol/L (3.5-5.1)
[2021-08-18] MEDS ORDERED: DEXTROSE 50% 25 GM / 50ML DISP.SYRIN. IV PRN (10:30)
[2021-08-18 11:00] VITALS: BP 103/46
[2021-08-18] MEDS: cefTRIAXone IV Push 1 GM VIAL. IVP SCH (12:15)
[2021-08-18] MEDS: INSULIN LISPRO 300 UNITS/3 ML VIAL. SQ SCH ×2 (12:23→18:02)
--- NOTE | 2021-08-18 13:52 | PDOC ---
[facility] PROGRESS NOTE Date of Service DOS: DATE: 08/18/21 TIME: 13:48 Chief Complaint Chief Complaint acute Chest pain hx of Coronary vasospasm , no CAD, prior clean cath at OSH acute bronchitis or pneumonitis, with basilar haziness on CXR - will get noncontrast CT obese, BMI 41 weakness and debility, poor mobilty, mult falls smoker probable JOSH Dm2 htn Pending cardiology evaluation Pending GI evaluation History of Present Illness History of Present Illness 56 year old male admit from ER with acute chest pain with pressure. Yesterday, acute left-sided chest pain with " felt like an elephant sitting on his chest" with coughing and shortness of breath He states he is having some dizziness and shortness of breath. States he did take a baby aspirin today. He states he has been coughing so hard that he is coughing up coffee-ground sputum. This all started today. States he did not take any nitroglycerin today. He denies nausea, vomiting, diarrhea, fever, syncope, focal weakness, numbness or tingling, vision change, abdominal pain. Patient has a history of angina, vasospasm angina, diabetes, IA, pancreatitis, migraine, hypertension, acute on chronic renal failure, smoking. Patient rates his discomfort a 9 out of 10. 08/18/2021 Patient seen and examined bedside. Continues to have moderate chest pain. This has been happening for the last year and progressively gotten worse. He does follow with Dr. Cassidy as an outpatient. Will consult cardiology for ACS. So far EKG and troponins have been normal. Patient's chart, labs, images were reviewed and discussed with RN Vitals/I&O Vitals/I&O: Vital Signs Date Time Temp Pulse Resp B/P (MAP) Pulse Ox O2 Delivery O2 Flow Rate FiO2 08/18/21 11:38 96 Room Air 08/18/21 11:00 98.4 75 18 103/46 (65) 98.4 08/18/21 07:56 2.0 I & O 08/17/21 08/17/21 08/18/21 15:00 23:00 07:00 Intake Total 650 ml 700 ml Output Total 500 ml 200 ml Balance 150 ml 700 ml -200 ml Physical Exam General: Alert, Oriented X3, Cooperative, mild distress Lungs: Clear Abdomen: Soft, No tenderness Extremities: No cyanosis, No edema Skin: No rashes, No breakdown, No significant lesion Labs Labs: Laboratory Tests Test 08/17/21 16:56 08/17/21 19:58 08/18/21 08:14 08/18/21 10:10 Glucose (Fingerstick) 199 mg/dL (70-99) 212 mg/dL (70-99) 199 mg/dL (70-99) Sodium Level 140 mmol/L (136-145) Potassium Level 3.7 mmol/L (3.5-5.1) Chloride Level 104 mmol/L (98-107) Carbon Dioxide Level 23 mmol/L (21-32) Anion Gap 13 (6-14) Blood Urea Nitrogen 18 mg/dL (8-26) Creatinine 1.5 mg/dL (0.7-1.3) Estimated GFR (Cockcroft-Gault) 48.2 Glucose Level 323 mg/dL (70-99) Calcium Level 8.6 mg/dL (8.5-10.1) Magnesium Level 1.9 mg/dL (1.8-2.4) Test 08/18/21 12:14 Glucose (Fingerstick) 317 mg/dL (70-99) Assessment and Plan Assessmemt and Plan Problems Medical Problems: (1) Chest pain Status: Acute Comment Review of Relevant I have reviewed the following items jabari (where applicable) has been applied. Medications: Current Medications Medications (Trade) Dose Ordered Sig/Christa Route PRN Reason Start Time Stop Time Status Last Admin Dose Admin Azithromycin (Zithromax) 250 mg DAILY PO 08/18/21 09:00 08/22/21 08:59 08/18/21 09:55 Budesonide (Pulmicort) 0.5 mg RTBID NEB 08/17/21 20:00 08/18/21 07:55 Lactobacillus Rhamnosus (Culturelle) 1 cap BID PO 08/17/21 21:00 08/18/21 09:55 Nicotine (Nicoderm Cq 21mg) 1 patch DAILY TD 08/17/21 14:30 08/18/21 09:53 Aspirin (Aspirin Chewable) 81 mg DAILY PO 08/17/21 16:00 08/18/21 09:54 Atorvastatin Calcium (Lipitor) 10 mg QHS PO 08/17/21 21:00 08/17/21 20:17 Isosorbide Mononitrate (Imdur) 90 mg DAILY PO 08/17/21 16:00 08/18/21 09:55 Levothyroxine Sodium (Synthroid) 125 mcg DAILY06 PO 08/18/21 06:00 08/18/21 06:29 Potassium Chloride (Klor-Con) 20 meq DAILY PO 08/18/21 09:00 08/18/21 09:55 Albuterol Sulfate (Ventolin Neb Soln) 2.5 mg RTQID NEB 08/17/21 16:00 08/17/21 20:00 Desvenlafaxine Succinate (Pristiq Er) 50 mg DAILY PO 08/17/21 16:00 08/18/21 09:54 Diazepam (Valium) 10 mg BID PO 08/17/21 21:00 08/18/21 09:54 Cyclobenzaprine HCl (Flexeril) 10 mg PRN TID PRN PO MUSCLE SPASMS 08/17/21 15:15 08/17/21 20:17 Pantoprazole Sodium (Protonix) 40 mg BIDAC PO 08/17/21 16:00 08/18/21 09:56 Amlodipine Besylate (Norvasc) 5 mg DAILY PO 08/17/21 17:00 08/18/21 09:56 Mirtazapine (Remeron) 7.5 mg QHS PO 08/17/21 21:00 08/17/21 20:17 Pregabalin (Lyrica) 75 mg BID PO 08/17/21 21:00 08/18/21 09:54 Insulin Human Lispro (HumaLOG) 55 units DAILYBFRSUP SQ 08/17/21 17:00 08/18/21 10:19 DC 08/17/21 17:26 Insulin Human Lispro (HumaLOG) 0-9 UNITS TIDWMEALS SQ 08/18/21 12:00 08/18/21 12:23 Justifications for Admission Other Justification MARKY LAINEZ MD Aug 18, 2021 13:52
--- NOTE | 2021-08-18 14:57 | PDOC2 ---
GI CONSULT Date of Service: DATE: 08/18/21 TIME: 14:38 Reason For Consult: atypical chest pain, distal esophageal thickening HPI: HPI: 56 y/o male w/ recurrent left-sided chest pain "like an elephant's sitting on it" w/ some radiation to left elbow and occasional "sharp" pain on left side under arm. No change with eating. Reports h/o "vascular spasms" and this pain is typical for that. H/o GERD controlled w/ pantoprazole QD 30 min before breakfast. Denies dysphagia, odynophagia, n/v, abd pain, diarrhea, constipation, hematochezia, melena, or change in appetite. Has gained weight. Reports EGD in [place] several years ago showed inflammation in esophagus. Reports normal colonoscopy w/ Dr. Stanley @ [facility] about a year ago. GES in 05/2021 was normal. S/p cholecystectomy (says GB EF was 5 or 12% - denies stones). Hepatic steatosis on imaging. Denies liver, pancreas, and PUD history. (Chart mentions h/o pancreatitis and has had mildly elevated lipase in the past.) Family (Georgie) present. PMH: PMH: HTN, [place], COPD, IDDM, CKD, nephrolithiasis, hypothyroidism, arthritis cholecystectomy, ureteral stent FH: Family History: No pertinent hx (denies GI cancers, PUD, liver disease) Social History: Smoke: <1 pack per day ALCOHOL: other (heavy in the past, now drinks once a month) Drugs: Marijuana, Other (h/o meth) ROS: GEN: Denies fevers, chills, sweats HEENT: Denies blurred vision, sore throat CV: +chest pain RESP: +intermittent SOA GI: Per HPI : Denies hematuria, dysuria ENDO: +weight gain NEURO: Denies confusion, dizziness MSK: Denies weakness, joint pain/swelling SKIN: Denies jaundice, pruritus Vitals: Vitals: Vital Signs Date Time Temp Pulse Resp B/P (MAP) Pulse Ox O2 Delivery O2 Flow Rate FiO2 08/18/21 11:38 96 Room Air 08/18/21 11:00 98.4 75 18 103/46 (65) 98.4 08/18/21 07:56 2.0 Labs: Labs: Laboratory Tests Test 08/17/21 16:56 08/17/21 19:58 08/18/21 08:14 08/18/21 10:10 Glucose (Fingerstick) 199 mg/dL (70-99) 212 mg/dL (70-99) 199 mg/dL (70-99) Sodium Level 140 mmol/L (136-145) Potassium Level 3.7 mmol/L (3.5-5.1) Chloride Level 104 mmol/L (98-107) Carbon Dioxide Level 23 mmol/L (21-32) Anion Gap 13 (6-14) Blood Urea Nitrogen 18 mg/dL (8-26) Creatinine 1.5 mg/dL (0.7-1.3) Estimated GFR (Cockcroft-Gault) 48.2 Glucose Level 323 mg/dL (70-99) Calcium Level 8.6 mg/dL (8.5-10.1) Magnesium Level 1.9 mg/dL (1.8-2.4) Test 08/18/21 12:14 Glucose (Fingerstick) 317 mg/dL (70-99) Allergies: Coded Allergies: ascorbic acid (Verified Allergy, Intermediate, itching, 08/04/21) ciprofloxacin (Verified Allergy, Intermediate, hives, 08/04/21) codeine (Verified Allergy, Intermediate, hives, 08/04/21) TOLERATES MORPHINE ketorolac (Verified Allergy, Intermediate, swelling, 08/04/21) tolerates ibuprofen Medications: Current Medications Medications (Trade) Dose Ordered Sig/Christa Route PRN Reason Start Time Stop Time Status Last Admin Dose Admin Azithromycin (Zithromax) 250 mg DAILY PO 08/18/21 09:00 08/22/21 08:59 08/18/21 09:55 Budesonide (Pulmicort) 0.5 mg RTBID NEB 08/17/21 20:00 08/18/21 07:55 Lactobacillus Rhamnosus (Culturelle) 1 cap BID PO 08/17/21 21:00 08/18/21 09:55 Aspirin (Aspirin Chewable) 81 mg DAILY PO 08/17/21 16:00 08/18/21 09:54 Atorvastatin Calcium (Lipitor) 10 mg QHS PO 08/17/21 21:00 08/17/21 20:17 Isosorbide Mononitrate (Imdur) 90 mg DAILY PO 08/17/21 16:00 08/18/21 09:55 Levothyroxine Sodium (Synthroid) 125 mcg DAILY06 PO 08/18/21 06:00 08/18/21 06:29 Potassium Chloride (Klor-Con) 20 meq DAILY PO 08/18/21 09:00 08/18/21 09:55 Albuterol Sulfate (Ventolin Neb Soln) 2.5 mg RTQID NEB 08/17/21 16:00 08/17/21 20:00 Desvenlafaxine Succinate (Pristiq Er) 50 mg DAILY PO 08/17/21 16:00 08/18/21 09:54 Diazepam (Valium) 10 mg BID PO 08/17/21 21:00 08/18/21 09:54 Cyclobenzaprine HCl (Flexeril) 10 mg PRN TID PRN PO MUSCLE SPASMS 08/17/21 15:15 08/17/21 20:17 Pantoprazole Sodium (Protonix) 40 mg BIDAC PO 08/17/21 16:00 08/18/21 09:56 Amlodipine Besylate (Norvasc) 5 mg DAILY PO 08/17/21 17:00 08/18/21 09:56 Mirtazapine (Remeron) 7.5 mg QHS PO 08/17/21 21:00 08/17/21 20:17 Pregabalin (Lyrica) 75 mg BID PO 08/17/21 21:00 08/18/21 09:54 Insulin Human Lispro (HumaLOG) 55 units DAILYBFRSUP SQ 08/17/21 17:00 08/18/21 10:19 DC 08/17/21 17:26 Insulin Human Lispro (HumaLOG) 0-9 UNITS TIDWMEALS SQ 08/18/21 12:00 08/18/21 12:23 Imaging: Imaging: CXR 08/16 IMPRESSION: Bibasilar predominant reticular interstitial changes are present, progressed from prior examination, as may be seen with interstitial pneumonitis versus interstitial edema. Chest CT 08/17 Impression: 1. Minimal left lower lobe apical segment groundglass attenuation may represent infectious or inflammatory process. Otherwise primarily linear multifocal opacities resemble atelectasis. Superimposed infection or inflammation not excluded. 2. Heavy subcarinal and left hilar macie calcifications consistent with calcified granulomatous disease. 3. Mild circumferential thickening of the distal esophagus. Reiterate recommendation for endoscopic evaluation if not already performed. 4. Hypodensity liver compatible steatosis. Mildly enlarged 15 cm spleen. LE US 08/17 IMPRESSION: No evidence of bilateral lower extremity deep vein thrombosis. PE: GEN: NAD - was asleep - lunch tray mostly consumed HEENT: Atraumatic, PERRL LUNGS: decreased anteriorly, on room air when I saw HEART: RRR ABD: NABS, round/large, soft, non-tender EXTREMITY: No edema SKIN: No rashes, no jaundice NEURO/PSYCH: A & O 3 A/P: A/P: Chest pain, COPD exacerbation Thrombocytopenia, elevated LFTs - both noted on labs from earlier this year GERD - controlled w/ PPI - last EGD in [place] several years ago - distal esophageal thickening per CT report CRC screen - reportedly normal last year S/p cholecystectomy Hepatic steatosis DM, CKD COVID negative H/o substance abuse and heavy alcohol use (less now) BMI 41 -- Getting PPI BID here - continue. Consider outpt EGD. Will review recent colonoscopy results. Recheck LFTs and check viral Hepatitis panel for completeness considering substance abuse history. Other recommendations per Dr. Stanley. CAMERON SMALL Aug 18, 2021 14:57
[2021-08-18 15:00] VITALS: BP 110/51
--- NOTE | 2021-08-18 15:18 | NUR ---
SS following for discharge planning. SS reviewed pt chart and discussed with pt RN. Pt is from home and is currently on room air. COVID19 negative. Cardiology and GI following. Pt on IV Rocephin. SS will continue to follow for discharge planning.
[2021-08-18 15:28] LABS: ALBUMIN 3.1 g/dL (3.4-5.0); DIRECT BILIRUBIN 0.2 mg/dL (0.0-0.2); TOTAL BILIRUBIN 0.6 mg/dL (0.2-1.0); TOTAL PROTEIN 6.4 g/dL (6.4-8.2)
[2021-08-18] MEDS: fentaNYL PF VIAL 100 MCG/2 ML VIAL IV PRN ×2 (16:34→22:36)
[2021-08-18] MEDS: ATORVASTATIN CALCIUM 10 MG TABLET. PO SCH (19:48)
[2021-08-18] MEDS: MIRTAZAPINE 7.5 MG TABLET. PO SCH (19:48)
[2021-08-18] MEDS: CYCLOBENZAPRINE 10 MG TABLET. PO PRN (19:49)
[2021-08-18 19:50] VITALS: BP 136/58
[2021-08-18 22:45] VITALS: BP 122/54
[2021-08-19 03:15] VITALS: BP 114/60
[2021-08-19] MEDS: LEVOTHYROXINE 125 MCG TABLET PO SCH (06:43)
[2021-08-19 07:00] VITALS: BP 141/73
[2021-08-19] MEDS: ALBUTEROL SULFATE 2.5 MG/3 ML NEBU. NEB SCH ×3 (08:00→15:52)
[2021-08-19] MEDS: ASPIRIN CHEWABLE 81 MG TABLET. PO SCH (08:07)
[2021-08-19] MEDS: DESVENLAFAXINE 25 MG TAB.ER.24H PO SCH (08:07)
[2021-08-19] MEDS: PANTOPRAZOLE 40 MG TABLET.DR. PO SCH ×2 (08:07→16:23)
[2021-08-19] MEDS: PREGABALIN 75 MG CAPSULE PO SCH (08:07)
[2021-08-19] MEDS: POTASSIUM CHLORIDE 20 MEQ TABLET.ER. PO SCH (08:07)
[2021-08-19] MEDS: fentaNYL PF VIAL 100 MCG/2 ML VIAL IV PRN (08:09)
[2021-08-19] MEDS: LACTOBACILLUS RHAMNOSUS GG 1 CAPSULE. PO SCH (08:13)
[2021-08-19] MEDS: NICOTINE 21MG PATCH. TD SCH (08:14)
[2021-08-19] MEDS: ISOSORBIDE MONONITRATE ER 30 MG TAB.ER.24H PO SCH (08:14)
[2021-08-19] MEDS: diazePAM 5 MG TABLET PO SCH (08:15)
[2021-08-19] MEDS: AZITHROMYCIN 250 MG TABLET. PO SCH (08:15)
[2021-08-19] MEDS: INSULIN LISPRO 300 UNITS/3 ML VIAL. SQ SCH ×2 (08:41→12:50)
[2021-08-19] MEDS: IPRATRPIUM/ALBUTEROL 0.5/2.5MG 3 ML NEBU. NEB SCH ×2 (08:58→12:16)
[2021-08-19] MEDS: BUDESONIDE 0.5 MG/2 ML NEBU. NEB SCH (08:58)
--- NOTE | 2021-08-19 09:22 | PDOC ---
PULMONARY PROGRESS NOTES DATE: 08/19/21 TIME: 09:21 Subjective Better today, not more short of air Vitals Vital Signs Date Time Temp Pulse Resp B/P (MAP) Pulse Ox O2 Delivery O2 Flow Rate FiO2 08/19/21 09:01 97 Room Air 08/19/21 08:15 75 141/73 08/19/21 07:00 98.0 18 98.0 08/18/21 23:06 2.0 ROS: No Nausea, No Chest Pain, No Abdominal Pain, No Increase Cough Lungs: Clear Cardiovascular: S1, S2 Abdomen: Soft, Other (Obese) Neuro Exam: Alert Extremities: No Edema Skin: Warm Labs Laboratory Tests Test 08/17/21 12:32 08/17/21 16:56 08/17/21 19:58 08/18/21 08:14 Glucose (Fingerstick) 184 mg/dL (70-99) 199 mg/dL (70-99) 212 mg/dL (70-99) 199 mg/dL (70-99) Test 08/18/21 10:10 08/18/21 12:14 08/18/21 17:14 08/18/21 21:11 Sodium Level 140 mmol/L (136-145) Potassium Level 3.7 mmol/L (3.5-5.1) Chloride Level 104 mmol/L (98-107) Carbon Dioxide Level 23 mmol/L (21-32) Anion Gap 13 (6-14) Blood Urea Nitrogen 18 mg/dL (8-26) Creatinine 1.5 mg/dL (0.7-1.3) Estimated GFR (Cockcroft-Gault) 48.2 Glucose Level 323 mg/dL (70-99) Calcium Level 8.6 mg/dL (8.5-10.1) Magnesium Level 1.9 mg/dL (1.8-2.4) Total Bilirubin 0.6 mg/dL (0.2-1.0) Direct Bilirubin 0.2 mg/dL (0.0-0.2) Aspartate Amino Transf (AST/SGOT) 40 U/L (15-37) Alanine Aminotransferase (ALT/SGPT) 67 U/L (16-63) Alkaline Phosphatase 161 U/L (46-116) Total Protein 6.4 g/dL (6.4-8.2) Albumin 3.1 g/dL (3.4-5.0) Hepatitis A IgM Antibody Nonreactive (Nonreactive) Hepatitis B Surface Antigen Nonreactive (Nonreactive) Hepatitis B Core IgM Antibody Nonreactive (Nonreactive) Hepatitis C IgG Antibody Nonreactive (Nonreactive) Glucose (Fingerstick) 317 mg/dL (70-99) 298 mg/dL (70-99) 330 mg/dL (70-99) Test 08/19/21 08:32 Glucose (Fingerstick) 268 mg/dL (70-99) Laboratory Tests Test 08/18/21 10:10 08/18/21 12:14 08/18/21 17:14 08/18/21 21:11 Sodium Level 140 mmol/L (136-145) Potassium Level 3.7 mmol/L (3.5-5.1) Chloride Level 104 mmol/L (98-107) Carbon Dioxide Level 23 mmol/L (21-32) Anion Gap 13 (6-14) Blood Urea Nitrogen 18 mg/dL (8-26) Creatinine 1.5 mg/dL (0.7-1.3) Estimated GFR (Cockcroft-Gault) 48.2 Glucose Level 323 mg/dL (70-99) Calcium Level 8.6 mg/dL (8.5-10.1) Magnesium Level 1.9 mg/dL (1.8-2.4) Total Bilirubin 0.6 mg/dL (0.2-1.0) Direct Bilirubin 0.2 mg/dL (0.0-0.2) Aspartate Amino Transf (AST/SGOT) 40 U/L (15-37) Alanine Aminotransferase (ALT/SGPT) 67 U/L (16-63) Alkaline Phosphatase 161 U/L (46-116) Total Protein 6.4 g/dL (6.4-8.2) Albumin 3.1 g/dL (3.4-5.0) Hepatitis A IgM Antibody Nonreactive (Nonreactive) Hepatitis B Surface Antigen Nonreactive (Nonreactive) Hepatitis B Core IgM Antibody Nonreactive (Nonreactive) Hepatitis C IgG Antibody Nonreactive (Nonreactive) Glucose (Fingerstick) 317 mg/dL (70-99) 298 mg/dL (70-99) 330 mg/dL (70-99) Test 08/19/21 08:32 Glucose (Fingerstick) 268 mg/dL (70-99) Medications Active Scripts Medications Dose Route/Sig Max Daily Dose Days Date Category Humulin R U-500 Kwikpen (Insulin Regular, Human) 500 Unit/1 Ml Insuln.pen 55 Unit SQ DAILYBFRSUP 08/17/21 Reported Humulin R U-500 Kwikpen (Insulin Regular, Human) 500 Unit/1 Ml Insuln.pen 95 Unit SQ DAILY08 08/17/21 Reported Methocarbamol 500 Mg Tablet 500 Mg PO TID PRN PRN 08/17/21 Reported Lyrica (Pregabalin) 75 Mg Capsule 75 Mg PO BID 08/17/21 Reported Amlodipine Besylate 5 Mg Tablet 5 Mg PO DAILY08 08/17/21 Reported Pristiq Er (Desvenlafaxine Succinate) 50 Mg Tab.er.24h 1 Tab PO DAILY 08/17/21 Reported Skelaxin (Metaxalone) 800 Mg Tablet 800 Mg PO PRN TID PRN 08/17/21 Reported Ventolin Hfa Inhaler (Albuterol Sulfate) 18 Gm Hfa.aer.ad 2 Puff INH QID 08/17/21 Reported Isosorbide Mononitrate Er (Isosorbide Mononitrate) 30 Mg Tab.er.24h 90 Mg PO DAILY 08/17/21 Reported Protonix (Pantoprazole Sodium) 20 Mg Tablet.dr 20 Mg PO BID 07/17/21 Reported Atorvastatin Calcium 10 Mg Tablet 1 Tab PO QHS 03/27/21 Reported Klor-Con M20 (Potassium Chloride) 20 Meq Tab.er.prt 20 Meq PO DAILY 03/27/21 Reported Diazepam 10 Mg Tablet 1 Tab PO BID 03/27/21 Reported Aspirin 81 Mg Tab.chew 1 Tab PO DAILY 30 01/04/21 Rx Levothyroxine Sodium 125 Mcg Tablet 125 Mcg PO DAILY06 01/03/21 Reported Mirtazapine 7.5 Mg Tablet 1 Tab PO QHS 01/03/21 Reported Impression . IMPRESSION: 1. Chest pain. Per cardiology 2. Acute exacerbation of COPD 3. Abnormal chest x-ray. 4. Acute kidney injury. 5. Obesity, suspect obstructive sleep apnea-hypopnea syndrome. 6. Reportedly, his PFTs few days ago did not show chronic obstructive pulmonary disease. 7. Smoker. 8. Diabetes mellitus. 9. Hypertension. 10. Elevated liver function tests. 11. Negative venous Dopplers of the lower extremities 12. Groundglass opacities on CT compatible with inflammation/COPD exacerbation Impression: 1. Minimal left lower lobe apical segment groundglass attenuation may represent infectious or inflammatory process. Otherwise primarily linear multifocal opacities resemble atelectasis. Superimposed infection or inflammation not ex cluded. 2. Heavy subcarinal and left hilar macie calcifications consistent with calcified granulomatous disease. 3. Mild circumferential thickening of the distal esophagus. Reiterate recommendation for endoscopic evaluation if not already performed. 4. Hypodensity liver compatible steatosis. Mildly enlarged 15 cm spleen. Plan . Updated 08/19 Follow-up with me in September Discharge home today updated 08/18 Treat acute exacerbation of COPD Follow-up in my office once discharged Follow cardiology input Venous Dopplers negative, doubt PE, my clinical suspicion is low MEHRAN SHAH MD Aug 19, 2021 09:22
--- NOTE | 2021-08-19 10:07 | PDOC ---
Date of Service: DATE: 08/19/21 TIME: 10:01 Subjective: Subjective: Chest pain a little better w/ pain shot. Wants to go home today. Objective: Vital Signs: Vital Signs Date Time Temp Pulse Resp B/P (MAP) Pulse Ox O2 Delivery O2 Flow Rate FiO2 08/19/21 09:01 97 Room Air 08/19/21 08:15 75 141/73 08/19/21 07:00 98.0 18 98.0 08/18/21 23:06 2.0 Labs: Laboratory Tests Test 08/18/21 12:14 08/18/21 17:14 08/18/21 21:11 08/19/21 08:32 Glucose (Fingerstick) 317 mg/dL (70-99) 298 mg/dL (70-99) 330 mg/dL (70-99) 268 mg/dL (70-99) PE: GEN: NAD LUNGS: CTAB HEART: RRR ABD: S/NT, large/round NEURO/PSYCH: A & O 3 A/P: Atypical chest pain, COPD exacerbation Thrombocytopenia, elevated LFTs (better), hepatic steatosis, h/o substance/alcohol use - viral Hep negative GERD/Merida's - controlled w/ PPI, last EGD 01/2021 CRC screen - UTD (2018) -- DC per primary. Continue PPI. Due for EGD in 2-3 years, due for colonoscopy in 2023. Justicifation of Admission Dx: Justifications for Admission: Justification of Admission Dx: Yes CAMERON SMALL Aug 19, 2021 10:07
--- NOTE | 2021-08-19 10:20 | PDOC2 ---
EMERALD WANG PLATFORM LOADER 08/19/21 1020: CARDIAC CONSULT DATE OF CONSULT Date of Consult DATE: 08/19/21 TIME: 09:53 REASON FOR CONSULT Reason for Consult: Atypical CP REFERRING PHYSICIAN Referring Physician: Pop SOURCE Source: Chart review, Patient HISTORY OF PRESENT ILLNESS HISTORY OF PRESENT ILLNESS 56M Stef Szymanski presents with squeezing chest pain and vomiting coffee ground emesis at [facility] on 08/17, Pt has been experiencing squeezing chest pain on the sternal and left side of his chest and some sharp pain in the L axillary region. Physical exertion makes the pain worse. Eating makes the pain better. He is known for vasopastic angina and presently on antianginal meds. Apparently he continues to smoke tobacco and noncomplaint with his diet. His BP is controlled. PAST MEDICAL HISTORY Cardiovascular: Hyperlipidemia, Other (vasopastic angina) Pulmonary: Pneumonia, Other (JOSH) Psych: Anxiety, Depression Musculoskeletal: Osteoarthritis ENT: Other ([place]) Renal/: UTI, Other (nephrolithiasis) Endocrine: Diabetes (2), Hypothyroidism PAST SURGICAL HISTORY Past Surgical History: Cholecystectomy FAMILY HISTORY Family History noncontributory to CV SOCIAL HISTORY Smoke: <1 pack per day ALCOHOL: none Drugs: None Lives: with Family CURRENT MEDICATIONS CURRENT MEDICATIONS Current Medications Medications (Trade) Dose Ordered Sig/Christa Route PRN Reason Start Time Stop Time Status Last Admin Dose Admin Insulin Human Lispro (HumaLOG) 0-9 UNITS TIDWMEALS SQ 08/18/21 12:00 08/19/21 08:41 ALLERGIES ALLERGIES: Coded Allergies: ascorbic acid (Verified Allergy, Intermediate, itching, 08/04/21) ciprofloxacin (Verified Allergy, Intermediate, hives, 08/04/21) codeine (Verified Allergy, Intermediate, hives, 08/04/21) TOLERATES MORPHINE ketorolac (Verified Allergy, Intermediate, swelling, 08/04/21) tolerates ibuprofen ROS Review of System 14 point ROS evaluated with pertinent positives noted per HPI PHYSICAL EXAM General: Alert, Oriented X3, Cooperative, No acute distress HEENT: Atraumatic, Mucous membr. moist/pink Lungs: Normal air movement, Other (basilar crackles) Heart: Regular rate, Normal S1, Normal S2, No murmurs Abdomen: Soft, No tenderness Extremities: No cyanosis, No edema Skin: No breakdown, No significant lesion Neuro: Normal speech, Sensation intact Psych/Mental Status: Mental status NL, Mood NL MUSCULOSKELETAL: Osteoarthritic changes both hands VITALS/I&O VITALS/I&O: Vital Signs Date Time Temp Pulse Resp B/P (MAP) Pulse Ox O2 Delivery O2 Flow Rate FiO2 08/19/21 09:01 97 Room Air 08/19/21 08:15 75 141/73 08/19/21 07:00 98.0 18 98.0 08/18/21 23:06 2.0 I & O 08/18/21 08/18/21 08/19/21 15:00 23:00 07:00 Intake Total 600 ml 300 ml Output Total 1780 ml 750 ml 1100 ml Balance -1180 ml -450 ml -1100 ml LABS Lab: Laboratory Tests Test 08/18/21 10:10 08/18/21 12:14 08/18/21 17:14 08/18/21 21:11 Sodium Level 140 mmol/L (136-145) Potassium Level 3.7 mmol/L (3.5-5.1) Chloride Level 104 mmol/L (98-107) Carbon Dioxide Level 23 mmol/L (21-32) Anion Gap 13 (6-14) Blood Urea Nitrogen 18 mg/dL (8-26) Creatinine 1.5 mg/dL (0.7-1.3) H Estimated GFR (Cockcroft-Gault) 48.2 Glucose Level 323 mg/dL (70-99) H Calcium Level 8.6 mg/dL (8.5-10.1) Magnesium Level 1.9 mg/dL (1.8-2.4) Total Bilirubin 0.6 mg/dL (0.2-1.0) Direct Bilirubin 0.2 mg/dL (0.0-0.2) Aspartate Amino Transferase (AST) 40 U/L (15-37) H Alanine Aminotransferase (ALT) 67 U/L (16-63) H Alkaline Phosphatase 161 U/L (46-116) H Total Protein 6.4 g/dL (6.4-8.2) Albumin 3.1 g/dL (3.4-5.0) L Hepatitis A IgM Antibody Nonreactive (Nonreactive) Hepatitis B Surface Antigen Nonreactive (Nonreactive) Hepatitis B Core IgM Antibody Nonreactive (Nonreactive) Hepatitis C IgG Antibody Nonreactive (Nonreactive) Glucose (Fingerstick) 317 mg/dL (70-99) H 298 mg/dL (70-99) H 330 mg/dL (70-99) H Test 08/19/21 08:32 Glucose (Fingerstick) 268 mg/dL (70-99) H Laboratory Tests 08/18/21 10:10 ECHOCARDIOGRAM ECHOCARDIOGRAM <Conclusion> The left ventricular systolic function is normal. Estimated ejection fraction 60-65%. There is normal LV segmental wall motion. Trace tricuspid valve regurgitation. There is no evidence of significant pericardial effusion. DATE: 01/10/21 [id number] 0 HEART CATH HEART CATH A. RIGHT HEART CATHETERIZATION 1. Intracardiac pressures: Mean right atrial pressure 5 mmHg, right ventricular pressure 26/0 mmHg, pulmonary artery pressure 23/6 mmHg with a mean PA pressure 14 mmHg and mean pulmonary capillary wedge pressure 8 mmHg. No pulmonary hypertension. 2. Oxygen saturations: Right atrium 77.8%, pulmonary artery 77.9%, femoral arterial sheath 98.6%. No evidence of intracardiac shunt. 3. Cardiac output by Cheryl method 6 L/min. B. LEFT HEART CATHETERIZATION 1. Hemodynamics: Left ventricular end-diastolic pressure 13 mmHg. No pullback gradient across the aortic valve. 2. Coronary angiography: a. The left main coronary artery arose from the left sinus of Valsalva, gave rise to the left anterior descending and left circumflex arteries and did not show any significant stenosis. b. The left anterior descending artery did not show any significant stenosis c. The left circumflex artery did not show any significant stenosis. d. The right coronary artery was a dominant vessel arising from the right sinus of Valsalva that did not show any significant stenosis. Conclusion 1. No significant coronary disease 2. Normal right and left-sided filling pressures without any pulmonary hypertension 3. No evidence of intracardiac shunt Recommendations Patient's chest pain with typical features relieved with nitroglycerin could be secondary to his known diagnosis of vasospastic angina. We will start long- acting nitroglycerin for symptomatic relief. DATE: 01/10/21 [id number] 0 ASSESSMENT/PLAN ASSESSMENT/PLAN 1. AECOPD with continued tobaccoism 2. GERD with distal esophageal thickening 3. Atypical CP: due to above 4. Hx of prinzmetal angina 5. HLP 6. DM2 7. JOSH: due for test 8. Morbid obesity Recommendations 1. Continue antianginals. GI managing GERD 2. Continue secondary prevention measures. 3. No further cardiac workup. PAUL ARELLANO MD 08/19/21 1327: CARDIAC CONSULT ASSESSMENT/PLAN ASSESSMENT/PLAN Patient seen and examined. Agree with COSMETIC MAKER's assessment and plan. Chest pain with atypical features and most probably GI etiology. Myocardial infarction been ruled out. Recent cardiac catheterization did not show any significant coronary artery stenosis. Recent 2D echo showed normal LV systolic function. Continue current management of acute COPD exacerbation. Thank you for your consultation EMERALD WANG APRN Aug 19, 2021 10:20 PAUL ARELLANO MD Aug 19, 2021 13:27
[2021-08-19 11:00] VITALS: BP 102/55
--- NOTE | 2021-08-19 11:30 | NUR ---
SS following up with discharge planning. SS reviewed pt chart and discussed with pt RN. Pt is currently on room air. COVID19 negative. Pt on IV Rocephin. ST following. Pt on PO diet. Discharge plan is currently to home when medically ready for discharge. SS will continue to follow for discharge planning.
[2021-08-19] MEDS: cefTRIAXone IV Push 1 GM VIAL. IVP SCH (12:42)
[2021-08-19] MEDS ORDERED: PANT40TA77 PO (13:24)
--- NOTE | 2021-08-19 13:25 | DISCH ---
DISCHARGE INSTRUCTIONS Condition on Discharge Condition on Discharge: Stable Activity After Discharge Activity Instructions for Disc: Activity as tolerated, Other, see below Lifting Instructions after Dis: No heavy lifting, No pulling or pushing, Do not lift >10 pounds Exercise Instruction after Dis: Walk 10 min, 3 x per day, Progress as tolerated Driving Instructions after Dis: Do not drive today Weight Bearing Status after Di: Full weight bearing Diet after Discharge Diet after Discharge: Cardiac, Diabetic No Calorie Level Diet Texture: Regular Liquid Texture: Thin Liquid Wound Incision Care Wound/Incision Care: Ice to area for comfort, Change dressing, May get incision wet Checks after Discharge Checks after discharge: Check blood press - daily, Check blood sugar, ac/hs Contacting the DR. after DC Call your doctor for: If your condition worsens Follow-Up Follow up with: PCP within 2 weeks of discharge Follow Up With: Gastroenterology for endoscopy follow-up in cardiology as scheduled Treatment/Equipment after DC Adaptive Equipment Issued: None MARKY LAINEZ MD Aug 19, 2021 13:25
[2021-08-19] MEDS ORDERED: AMOX1TAB58 PO (13:51)
[2021-08-19 15:00] VITALS: BP 137/61
--- NOTE | 2021-08-19 16:50 | NUR ---
Discharge Note: ERIC MCCOY Discharge instructions and discharge home medications reviewed with Patient and a copy given. All questions have been answered and understanding verbalized. The following instructions and handouts were given: chest pain, pneumonia IV discontinued, no complications Patient discharged to home with self care. All belongings taken home with patient
--- NOTE | 2021-08-20 18:01 | PDOC3 ---
[facility]-Discharge Summary Date of Admission: Date of Admission: Aug 17, 2021 Date of Discharge: Date of Discharge: Aug 19, 2021 Discharge Diagnosis: Discharge Diagnosis: acute Chest pain hx of Coronary vasospasm , no CAD, prior clean cath at OSH acute bronchitis or pneumonitis, with basilar haziness on CXR - will get noncontrast CT obese, BMI 41 weakness and debility, poor mobilty, mult falls smoker probable JOSH Dm2 htn Consults: Consults: Cardiology Recommendations 1. Continue antianginals. GI managing GERD 2. Continue secondary prevention measures. 3. No further cardiac workup. Hospital Course: Hospital Course: 56 year old male admit from ER with acute chest pain with pressure. Yesterday, acute left-sided chest pain with " felt like an elephant sitting on his chest" with coughing and shortness of breath He states he is having some dizziness and shortness of breath. States he did take a baby aspirin today. He states he has been coughing so hard that he is coughing up coffee-ground sputum. This all started today. States he did not take any nitroglycerin today. He denies nausea, vomiting, diarrhea, fever, syncope, focal weakness, numbness or tingling, vision change, abdominal pain. Patient has a history of angina, vasospasm angina, diabetes, [place], pancreatitis, migraine, hypertension, acute on chronic renal failure, smoking. Patient rates his discomfort a 9 out of 10. 08/18/2021 Patient seen and examined bedside. Continues to have moderate chest pain. This has been happening for the last year and progressively gotten worse. He does follow with Dr. Cassidy as an outpatient. Will consult cardiology for ACS. So far EKG and troponins have been normal. Patient's chart, labs, images were r eviewed and discussed with RN By day of discharge, pt was clinically stable and ready for discharge. Rest of hospital course was uneventful In addition to my E/M visit. Smoking cessation: Total time spent was 12 minutes in face to face counseling. Patient has agreed [] to consider nicotine patches/gum or to start on Varenicline when discharged. Disposition: Disposition/Orders: D/C to Home Activity: Activity: Resume previous activity Diet: Diet: Cardiac Medications: Home Meds Active Scripts Amoxicillin/Potassium Clav (AUGMENTIN 500-125 TABLET) 1 Each Tablet, 1 TAB PO BID for pneumonia for 3 Days, #6 TAB 0 Refills Prov:MARKY LAINEZ MD 08/19/21 Pantoprazole Sodium (PANTOPRAZOLE SODIUM ) 40 Mg Tablet.dr, 40 MG PO BIDAC for GERD for 30 Days, #60 TAB.SR 2 Refills Prov:MARKY LAINEZ MD 08/19/21 Aspirin (ASPIRIN) 81 Mg Tab.chew, 1 TAB PO DAILY for angina for 30 Days, #30 TAB 3 Refills Prov:YIN ULRICH MD 01/04/21 Reported Medications Insulin Regular, Human (Humulin R U-500 Kwikpen) 500 Unit/1 Ml Insuln.pen, 55 UNIT SQ DAILYBFRSUP, EACH 08/17/21 Insulin Regular, Human (Humulin R U-500 Kwikpen) 500 Unit/1 Ml Insuln.pen, 95 UNIT SQ DAILY08, EACH 08/17/21 Methocarbamol (METHOCARBAMOL) 500 Mg Tablet, 500 MG PO TID PRN PRN for MUSCLE SPASTICITY, TAB 08/17/21 Pregabalin (LYRICA) 75 Mg Capsule, 75 MG PO BID, CAP 08/17/21 Amlodipine Besylate (AMLODIPINE BESYLATE) 5 Mg Tablet, 5 MG PO DAILY08, TAB 08/17/21 Desvenlafaxine Succinate (PRISTIQ ER) 50 Mg Tab.er.24h, 1 TAB PO DAILY for antidepressant, #30 TAB 5 Refills 08/17/21 Metaxalone (SKELAXIN) 800 Mg Tablet, 800 MG PO PRN TID PRN for PAIN, TAB 08/17/21 Albuterol Sulfate (VENTOLIN HFA INHALER) 18 Gm Hfa.aer.ad, 2 PUFF INH QID for FOR ASTHMA, EACH 0 Refills 08/17/21 Isosorbide Mononitrate (ISOSORBIDE MONONITRATE ER) 30 Mg Tab.er.24h, 90 MG PO DAILY for cardiac, TAB.SR 08/17/21 Atorvastatin Calcium (ATORVASTATIN CALCIUM) 10 Mg Tablet, 1 TAB PO QHS for cholesterol 03/27/21 Potassium Chloride (KLOR-CON M20) 20 Meq Tab.er.prt, 20 MEQ PO DAILY for 03/27/21 Diazepam (Diazepam) 10 Mg Tablet, 1 TAB PO BID for 03/27/21 Levothyroxine Sodium (LEVOTHYROXINE SODIUM) 125 Mcg Tablet, 125 MCG PO DAILY06 for THYROID SUPPLEMENT, #30 TAB 0 Refills 01/03/21 Mirtazapine (MIRTAZAPINE) 7.5 Mg Tablet, 1 TAB PO QHS for insomnia 01/03/21 Discontinued Reported Medications Pantoprazole Sodium (PROTONIX) 20 Mg Tablet.dr, 20 MG PO BID for gerd, TAB 07/17/21 Furosemide (LASIX) 20 Mg Tablet, 20 MG PO DAILY for water retention, TAB 07/17/21 Insulin Detemir (Levemir Flextouch) 100 Unit/1 Ml Insuln.pen, 80 UNITS SQ QHS for DM 01/03/21 Insulin Aspart (Insulin Aspart Flexpen) 100 Unit/1 Ml Insuln.pen, 28 UNITS SQ TIDAC for DM 01/03/21 Scheduled Albuterol Sulfate (Ventolin Hfa Inhaler), 2 PUFF INH QID, (Reported) Amlodipine Besylate (Amlodipine Besylate), 5 MG PO DAILY08, (Reported) Amoxicillin/Potassium Clav (Augmentin 500-125 Tablet), 1 TAB PO BID Aspirin (Aspirin), 1 TAB PO DAILY Atorvastatin Calcium (Atorvastatin Calcium), 1 TAB PO QHS, (Reported) Desvenlafaxine Succinate (Pristiq Er), 1 TAB PO DAILY, (Reported) Diazepam (Diazepam), 1 TAB PO BID, (Reported) Insulin Regular, Human (Humulin R U-500 Kwikpen), 95 UNIT SQ DAILY08, (Reported) Insulin Regular, Human (Humulin R U-500 Kwikpen), 55 UNIT SQ DAILYBFRSUP, (Reported) Isosorbide Mononitrate (Isosorbide Mononitrate Er), 90 MG PO DAILY, (Reported) Levothyroxine Sodium (Levothyroxine Sodium), 125 MCG PO DAILY06, (Reported) Mirtazapine (Mirtazapine), 1 TAB PO QHS, (Reported) Pantoprazole Sodium (Pantoprazole Sodium ), 40 MG PO BIDAC Potassium Chloride (Klor-Con M20), 20 MEQ PO DAILY, (Reported) Pregabalin (Lyrica), 75 MG PO BID, (Reported) Scheduled PRN Metaxalone (Skelaxin), 800 MG PO PRN TID PRN for PAIN, (Reported) Methocarbamol (Methocarbamol), 500 MG PO TID PRN PRN for MUSCLE SPASTICITY, (Reported) Discontinued Medications Furosemide (Lasix), 20 MG PO DAILY, (Reported) Insulin Aspart (Insulin Aspart Flexpen), 28 UNITS SQ TIDAC, (Reported) Insulin Detemir (Levemir Flextouch), 80 UNITS SQ QHS, (Reported) Pantoprazole Sodium (Protonix), 20 MG PO BID, (Reported) Total Time: Total Time: Total time spent was 31 minutes in preparing scripts, discharge planning with SW and RN, and preparing this discharge summary. Patient seen and examined on day of discharge. Justicifation of Admission Dx: Justifications for Admission: Justification of Admission Dx: Yes MARKY LAINEZ MD Aug 20, 2021 18:01
== END 2021-08-19 16:39 | disposition home or self-care (01) | DRG 190 ==
LOC: ER 21:26 → 6 SOUTH 22:49 → OBSVTOIN 08-18 15:24
PROVIDERS: ADMIT Family Medicine; ATTEND Family Medicine
DX: J44.1 Chronic obstructive pulmonary disease with (acute) exacerbation (principal); J18.9 Pneumonia, unspecified organism; N17.9 Acute kidney failure, unspecified; Z68.41 Body mass index [BMI] 40.0-44.9, adult; D71 Functional disorders of polymorphonuclear neutrophils; E03.9 Hypothyroidism, unspecified; E11.22 Type 2 diabetes mellitus with diabetic chronic kidney disease; E66.01 Morbid (severe) obesity due to excess calories; E78.5 Hyperlipidemia, unspecified; F17.210 Nicotine dependence, cigarettes, uncomplicated; G47.33 Obstructive sleep apnea (adult) (pediatric); I12.9 Hypertensive chronic kidney disease with stage 1 through stage 4 chronic kidney disease, or unspecified chronic kidney disease; I20.9 Angina pectoris, unspecified; K21.9 Gastro-esophageal reflux disease without esophagitis; K22.70 Barrett's esophagus without dysplasia; K76.0 Fatty (change of) liver, not elsewhere classified; M19.90 Unspecified osteoarthritis, unspecified site; N18.9 Chronic kidney disease, unspecified; N20.0 Calculus of kidney; Z79.4 Long term (current) use of insulin; Z82.49 Family history of ischemic heart disease and other diseases of the circulatory system; Z87.19 Personal history of other diseases of the digestive system; Z87.442 Personal history of urinary calculi; Z90.49 Acquired absence of other specified parts of digestive tract; F41.9 Anxiety disorder, unspecified; G43.909 Migraine, unspecified, not intractable, without status migrainosus; Z88.8 Allergy status to other drugs, medicaments and biological substances; Z20.822 Contact with and (suspected) exposure to COVID-19; D69.6 Thrombocytopenia, unspecified; R07.89 Other chest pain; I25.2 Old myocardial infarction; Z71.6 Tobacco abuse counseling; J20.9 Acute bronchitis, unspecified; J44.0 Chronic obstructive pulmonary disease with (acute) lower respiratory infection; G47.00 Insomnia, unspecified
CPT/HCPCS: 36415; 71045; 71250; 80048; 80053; 80076; 82962; 83690; 83735; 83880; 84484; 85025; 85610; 85730; 86705; 86709; 86803; 87340; 87426; 93005; 93970; 94640; 94760; G0378; G0379; J0696; J1815; J3010; U0003; U0005; 92610-GN; 99285-25; J7613; J7626

== ENCOUNTER → 2022-03-05 | Emergency (ER) | payer MEDICAID, MEDICARE, OTHER ==
[~2022-03-05] VITALS: Ht 182.9 cm; Wt 138.6 kg
[~2022-03-05] MED LIST changes: +AMOX1TAB58 PO; -CHOL4POW PO; -CHOL4POW2 PO; +CHOL4POW31 PO; +CHOL4POW6 PO; +DESV50TA PO; +INSU500I SQ; +META-21 PO; +METH-561 PO; +PREG-9 PO; +VENTOLIN HFA18 GM INH
[2022-03-05 21:28] VITALS: BP 213/112
== END | disposition left against medical advice (07) ==
LOC: ER 21:25
DX: R10.9 Unspecified abdominal pain (principal); Z53.21 Procedure and treatment not carried out due to patient leaving prior to being seen by health care provider